=== PATIENT | male | born 1960 | race Caucasian/White ===

== ENCOUNTER → 2016-10-05 | Outpatient (CLI) | payer MEDICARE ==
--- NOTE | 2016-10-05 09:39 | XR ---
EXAMINATION TYPE: XR Hip Complete LT DATE OF EXAM ORDERED: 10/05/2016 9:03 AM HISTORY: M25.552 L hip pain. COMPARISON: None. FINDINGS: No fracture, dislocation or other acute osseous lesion is seen. IMPRESSION: NO ACUTE OSSEOUS LESION.
== END | disposition home or self-care (01) ==
LOC: RADXRMAIN 08:43
PROVIDERS: ATTEND Family Medicine
DX: M25.552 Pain in left hip (principal)
CPT/HCPCS: 73502

== ENCOUNTER → 2016-11-12 | Outpatient (CLI) | payer OTHER ==
--- NOTE | 2016-11-12 12:10 | MR ---
EXAMINATION TYPE: MR lumbar spine wo/w con DATE OF EXAM: 11/12/2016 COMPARISON: NONE Contrast: 20 mL MultiHance HISTORY: low back pain TECHNIQUE: T1 and T2 axial and sagittal, postcontrast T1 axial and sagittal images of the lumbar spi ne are submitted. Motion artifact does limit portions of the exam. FINDINGS: There is no abnormal signal seen within the visualized spinal cord or paraspinal soft tissu es. At L1-2 there is hypertrophy of the facets with circumferential disc bulging. Severe bilateral areli inal encroachment with greater disc bulging laterally. Borderline canal stenosis. At L2-3 there is severe degenerative disc disease with discogenic marrow changes. Left paracentral di sc bulging or protrusion seen with mild effacement of thecal sac. Hypertrophic change of the facets a re noted and there is moderate to severe bilateral foraminal encroachment and borderline canal stenos is. At L3-4 there is moderate degenerative disc disease with severe facet hypertrophy. This results in mo derate to severe bilateral foraminal encroachment but no canal stenosis or focal herniation. At L4-5 there is severe degenerative disc disease and facet hypertrophy. Mild central disc bulging. N eural foramina demonstrate moderate encroachment on the right and mild on the left. At L5-S1 there is moderate degenerative disc disease with facet arthropathy and central disc bulging or small protrusion. Mild bilateral foraminal encroachment. IMPRESSION: 1. At L5-S1 there is a broad-based central disc bulging or small protrusion with mild effacement of t hecal sac and mild bilateral foraminal encroachment. 2. Multilevel moderate to severe degenerative disc disease. Disc bulging or protrusion L2-L3 resultin g in bilateral severe foraminal encroachment and borderline canal stenosis. 3. Hypertrophic changes and degenerative disc disease result in moderate to severe bilateral foramina l encroachment L3-L4. 4. Severe degenerative disc disease L4-5 with hypertrophic changes and central disc bulging with fora kun encroachment as discussed above. 5. Circumferential disc bulging greater laterally results in bilateral severe foraminal encroachment and borderline canal stenosis L1-L2. Nerve root impingement bilaterally greater on the left suspecte d.
== END | disposition home or self-care (01) ==
LOC: RADMRIMAIN 10:59
PROVIDERS: ATTEND Physician Assistant
DX: M51.27 Other intervertebral disc displacement, lumbosacral region (principal); M51.36 Other intervertebral disc degeneration, lumbar region
CPT/HCPCS: 72158; A9577

== ENCOUNTER → 2018-05-30 | Outpatient (CLI) | payer MEDICARE ==
--- NOTE | 2018-05-30 13:06 | XR ---
EXAMINATION TYPE: XR chest 2V DATE OF EXAM: 05/30/2018 COMPARISON: 01/02/2013 INDICATION: COPD TECHNIQUE: Frontal and lateral views of the chest are obtained. FINDINGS: The heart size is normal. The pulmonary vasculature is normal. The lungs are clear. Mild flattening the diaphragms may be present which can be compatible with the patient's history of asthma and COPD IMPRESSION: 1. No acute pulmonary process.
== END | disposition home or self-care (01) ==
LOC: RADXRMAIN 12:08
PROVIDERS: ATTEND Physician Assistant
DX: J44.9 Chronic obstructive pulmonary disease, unspecified (principal)
CPT/HCPCS: 71046

== ENCOUNTER → 2018-07-09 | Outpatient (CLI) | payer MEDICARE ==
[2018-07-09 14:15] LABS: Basophils % (A) 0 %; Eosinophils # (A) 0.2 k/uL (0-0.7); Eosinophils % (A) 2 %; HCT 46.7 % (39.0-53.0); HGB 14.9 gm/dL (13.0-17.5); Lymphocytes % (A) 15 %; MCHC 31.9 g/dL (31.0-37.0); MCV 97.4 fL (80.0-100.0); Mean Platelet Volume 7.5; Monocytes # (A) 0.5 k/uL (0-1.0); Monocytes % (A) 4 %; Neutrophils # (A) 10.6 k/uL (1.3-7.7); Neutrophils % (A) 78 %; Platelet Count 266 k/uL (150-450); RBC 4.79 m/uL (4.30-5.90); RDW 13.5 % (11.5-15.5); WBC 13.5 k/uL (3.8-10.6)
[2018-07-09 20:53] LABS: Dermato. farinae IgE 0.12 kU/L
[2018-07-09 20:54] LABS: Cockroach IgE <0.10 kU/L; Dog Dander IgE 0.55 kU/L
[2018-07-09 20:55] LABS: Alternaria alternata IgE 0.16 kU/L
[2018-07-09 20:56] LABS: Birch IgE <0.10 kU/L; Elm IgE <0.10 kU/L; Maple (Box Elder) IgE <0.10 kU/L; Oak IgE <0.10 kU/L
[2018-07-09 20:57] LABS: Ragweed,Common IgE <0.10 kU/L
[2018-07-09 20:58] LABS: Red Top (Bentgrass) IgE 3.67 kU/L
== END | disposition home or self-care (01) ==
LOC: LABWHC1 13:30
PROVIDERS: ATTEND Internal Medicine
DX: J44.9 Chronic obstructive pulmonary disease, unspecified (principal); J30.2 Other seasonal allergic rhinitis; M54.5 Low back pain; I10 Essential (primary) hypertension; J98.4 Other disorders of lung; E66.01 Morbid (severe) obesity due to excess calories
CPT/HCPCS: 36415; 82785; 85025; 86003

== ENCOUNTER 2019-08-13 11:13 | Inpatient (IN) | payer OTHER, MEDICARE ==
[2019-08-13] MEDS ORDERED: methylPREDNISolone SOD SUCCI 125 MG/2 ML VIAL IV STA (11:29)
[2019-08-13] MEDS ORDERED: IPRATROPIUM-ALBUTEROL 3 ML NEB INHALATION STA (11:29)
--- NOTE | 2019-08-13 11:32 | ED ---
General Adult HPI - General Chief complaint: Shortness of Breath Stated complaint: JOSEPHINE Time Seen by Provider: 08/13/19 11:23 Source: patient, family, RN notes reviewed Mode of arrival: ambulatory Limitations: no limitations - History of Present Illness Initial comments: Patient is a pleasant 58-year-old male presenting to the emergency Department with complaints of cough and difficulty in breathing. Onset of symptoms was several weeks ago. Patient went to urgent care on July 29 and was diagnosed with pneumonia. Patient was started on clindamycin and just finished this 4 days ago. Symptoms have started to worsen again. Patient complains of some cough however more difficulty in breathing and wheezing. Patient does have known history of asthma. No leg pain or leg swelling. - Related Data Allergies Allergy/AdvReac Type Severity Reaction Status Date / Time Penicillins Allergy Rash/Hives Verified 08/13/19 11:21 Review of Systems ROS Statement: Those systems with pertinent positive or pertinent negative responses have been documented in the HPI. ROS Other: All systems not noted in ROS Statement are negative. Constitutional: Denies: fever Eyes: Denies: eye pain ENT: Denies: ear pain Respiratory: Reports: cough, dyspnea Cardiovascular: Denies: chest pain Endocrine: Reports: fatigue Gastrointestinal: Denies: abdominal pain Genitourinary: Denies: dysuria Musculoskeletal: Denies: back pain Skin: Denies: rash Neurological: Denies: weakness Past Medical History Past Medical History: Asthma, Hyperlipidemia, Hypertension History of Any Multi-Drug Resistant Organisms: None Reported Additional Past Surgical History / Comment(s): septum surgery, nission procedure on stomach, nerve ablation on back. Past Psychological History: No Psychological Hx Reported Smoking Status: Never smoker Past Alcohol Use History: None Reported Past Drug Use History: None Reported General Exam Limitations: no limitations General appearance: alert, obese Head exam: Present: normocephalic Eye exam: Present: normal appearance, PERRL ENT exam: Present: normal oropharynx Neck exam: Present: normal inspection Respiratory exam: Present: respiratory distress (Mild respiratory distress), wheezes, decreased breath sounds Cardiovascular Exam: Present: tachycardia GI/Abdominal exam: Present: soft. Absent: tenderness Extremities exam: Present: normal inspection. Absent: pedal edema, calf tenderness Neurological exam: Present: alert Psychiatric exam: Present: normal affect, normal mood Skin exam: Present: normal color Course Vital Signs 08/13/19 08/13/1908/12/20 11:17 12:08 12:18 Temperature 97.9 F Pulse Rate 113 H 106 H 107 H Respiratory 20 Rate Blood Pressure 182/83 O2 Sat by Pulse 97 Oximetry 08/13/19 08/13/19 12:30 13:00 Temperature Pulse Rate 105 H 103 H Respiratory 16 19 Rate Blood Pressure 175/110 146/103 O2 Sat by Pulse 97 95 Oximetry EKG Findings - EKG Comments: EKG Findings:: Sinus tachycardia 104. MI 142. QRS 90. QT 344. QTC 452. Normal axis. Normal QRS. No acute ST change. Medical Decision Making - Medical Decision Making Patient reevaluated and feels much better. Patient is not in respiratory distress. Lung sounds with only mild improvement. Patient and family updated on results and plan. Case discussed in detail with Dr. Wall and x-ray was reviewed with him as well. He will admit covering for Dr. Gutierrez. - Radiology Data Radiology results: image reviewed (Chest x-ray shows subtle right lower lobe infiltrate that could represent atelectasis or pneumonia.) Disposition Clinical Impression: Asthma with acute exacerbation, Pneumonia Disposition: ADMITTED IP TO THIS HOSP Is patient prescribed a controlled substance at d/c from ED?: No Referrals: Patrick Gutierrez DO [Primary Care Provider] - 1-2 days Decision Time: 14:09
--- NOTE | 2019-08-13 12:34 | XR ---
EXAMINATION TYPE: XR chest 2V DATE OF EXAM: 08/13/2019 COMPARISON: 05/22/2018 HISTORY: Pneumonia per patient history. TECHNIQUE: Frontal and lateral views of the chest are obtained. FINDINGS: Subtle small opacity of the right lower lobe appears new from the prior. Remainder the osmar gs are well aerated. No pleural effusion or pneumothorax. Cardia mediastinal silhouette is again enla rged as seen on the prior. Moderate degenerative change of the thoracic spine. IMPRESSION: Subtle right basilar opacity may represent atelectasis or pneumonia in the appropriate c linical setting.
[2019-08-13 13:59] LABS: Basophils % (A) 0 %; Eosinophils # (A) 0.5 k/uL (0-0.7); Eosinophils % (A) 3 %; HCT 46.4 % (39.0-53.0); Lymphocytes # (A) 1.2 k/uL (1.0-4.8); Lymphocytes % (A) 8 %; MCH 30.7 pg (25.0-35.0); MCHC 32.2 g/dL (31.0-37.0); MCV 95.4 fL (80.0-100.0); Mean Platelet Volume 9.1; Monocytes # (A) 0.6 k/uL (0-1.0); Monocytes % (A) 4 %; Neutrophils # (A) 13.2 k/uL (1.3-7.7); Neutrophils % (A) 84 %; Platelet Count 282 k/uL (150-450); RBC 4.87 m/uL (4.30-5.90); RDW 13.9 % (11.5-15.5); WBC 15.7 k/uL (3.8-10.6)
[2019-08-13] MEDS ORDERED: IPRATROPIUM-ALBUTEROL 3 ML NEB INHALATION PRN (14:09)
[2019-08-13] MEDS ORDERED: AZITHROMYCIN 500 MG in SODIUM CHLORIDE 0.9% 250 ML IVPB STA (14:09)
[2019-08-13] MEDS ORDERED: PNEUMONIA PROTOCOL UTILIZED 1 EACH MISC PO PRN (14:09)
[2019-08-13 14:14] LABS: INR 0.9 (<1.2); Prothrombin Time 9.4 sec (9.0-12.0)
[2019-08-13 14:16] LABS: ALT 61 U/L (4-49); AST 55 U/L (17-59); African American GFR (CKD) >90 (>60 ml/min/1.73 sqM); Albumin 4.4 g/dL (3.5-5.0); Alkaline Phosphatase 82 U/L (38-126); Anion Gap 10 mmol/L; Blood Urea Nitrogen 24 mg/dL (9-20); Calcium 9.9 mg/dL (8.4-10.2); Carbon Dioxide 25 mmol/L (22-30); Chloride 103 mmol/L (98-107); Glucose 157 mg/dL (74-99); Non-African American GFR(CKD) 82 (>60 ml/min/1.73 sqM); Sodium 138 mmol/L (137-145); Total Bilirubin 0.6 mg/dL (0.2-1.3); Total Protein 7.2 g/dL (6.3-8.2)
[2019-08-13 14:30] LABS: Potassium 4.7 mmol/L (3.5-5.1)
[2019-08-13 14:35] LABS: Partial Thromboplastin Time 21.5 sec (22.0-30.0)
[2019-08-13] MEDS: SODIUM CHLORIDE 0.9% 1,000 ML IV SCH (14:47)
[2019-08-13] MEDS ORDERED: SODIUM CHLORIDE 0.9% 1,000 ML IV STA ×2 (14:57)
[2019-08-13] MEDS ORDERED: SODIUM CHLORIDE 0.9% 600 ML IV STA (14:57)
[2019-08-13] MEDS ORDERED: IPRATROPIUM-ALBUTEROL 3 ML NEB INHALATION SCH (16:00)
[2019-08-13] MEDS ORDERED: CYCLOBENZAPRINE 10 MG TAB PO PRN (16:03)
--- NOTE | 2019-08-13 16:18 | P.HPIM ---
History of Present Illness H&P Date: 08/13/19 Chief Complaint: Wheezing cough History of presenting complaint: This is a pleasant 58-year-old patient of Dr. Sabrina Gutierrez. Chronic stable medical conditions include BPH,, hypertension,. also follows with general office worker Dr. Tirado. Patient on July 29 had an attack of asthma with [facility]. He was told he also possible pneumonia was given antibiotics and 4 days ago he finished the course. Subsequently patient said having more wheezing dry cough no congestion has had no fever or chills appetite is fair. Presented to the ER. No dizziness no lightheadedness. Review of systems: GEN.: Tired EYES: None HEENT: None NECK: None RESPIRATORY: As above CARDIOVASCULAR: None GASTROINTESTINAL: None GENITOURINARY: None MUSCULOSKELETAL: None LYMPHATICS: None HEMATOLOGICAL: None PSYCHIATRY: None NEUROLOGICAL: None Past medical history to include: BPH,, hypertension, COPD, hyperlipidemia Social history: Patient smoked a pack a day for about 20 years stopped about 25 years ago. As . 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 EYES: Pupils equal. Conjunctiva normal. HEENT: External appearance of nose and ears normal, oral cavity grossly normal. NECK: JVD unable to assess; masses not palpable. HEART: First and second heart sounds are normal; no edema. LUNGS: Respiratory rate increased, diminished breath sounds prolonged expiration and wheezing. ABDOMEN: Soft, nontender, liver spleen not palpable, no masses palpable. PSYCH: [Alert and oriented x3; mood and affect slightly anxious. NEUROLOGICAL: Cranial nerves grossly intact; no facial asymmetry, power and sensation grossly intact. LYMPHATICS: No lymph nodes palpable in the axilla and neck INVESTIGATIONS, reviewed in the clinical context: White count 13.7 hemoglobin 15 platelets 282 potassium 4.7 creatinine 1.0 lactic acid 2.6 Chest x-ray film personally reviewed by me-questionable infiltrate EKG tracing personally reviewed by me-normal sinus rhythm Assessment: -Acute COPD exacerbation, having failed outpatient treatment patient just finished a course of antibiotics and steroids in an ex-smoker -Possible viral pneumonitis cannot rule out bacterial infection. Patient does h ave a dry cough. -Morbid obesity BMI 42.1 -BPH -Chronic lower back pain with radiculopathy Plan: Care was discussed with the patient and his ex- at the bedside. Patient be started on nebulized bronchodilators, inhaled and IV steroids. Also add ceftriaxone. Home medications are to be continued. Add Lovenox for DVT prophylaxis. Accu-Cheks will be followed. Care was discussed with the patient. Questions were answered. Past Medical History Past Medical History: Asthma, Hyperlipidemia, Hypertension History of Any Multi-Drug Resistant Organisms: None Reported Additional Past Surgical History / Comment(s): septum surgery, nission procedure on stomach, nerve ablation on back. Past Psychological History: No Psychological Hx Reported Smoking Status: Never smoker Past Alcohol Use History: None Reported Past Drug Use History: None Reported Medications and Allergies Home Medications Medication Instructions Recorded Confirmed Type Albuterol Nebulized [Ventolin 2.5 mg INHALATION RT-Q4H PRN 08/13/19 08/13/19 History Nebulized] Albuterol Sulfate [Ventolin HFA] 2 puff INHALATION RT-Q6H 08/13/19 08/13/19 History Cyclobenzaprine [Flexeril] 10 mg PO BID PRN 08/13/19 08/13/19 History Gabapentin [Neurontin] 300 mg PO TID 08/13/19 08/13/19 History Hydrochlorothiazide [Hydrodiuril] 25 mg PO DAILY 08/13/19 08/13/19 History Ipratropium Nebulized [Atrovent 0.5 mg INHALATION RT-Q4H PRN 08/13/19 08/13/19 History Nebulized 0.2 MG/ML] Losartan Potassium 100 mg PO DAILY 08/13/19 08/13/19 History Metoprolol Succinate (ER) [Toprol 25 mg PO HS 08/13/19 08/13/19 History Xl] Mometasone Furoate [Nasonex Nasal 2 spray EA NOSTRIL DAILY 08/13/19 08/13/19 History [place]] Montelukast [Singulair] 10 mg PO HS 08/13/19 08/13/19 History Tamsulosin [Flomax] 0.4 mg PO HS 08/13/19 08/13/19 History Theophylline 24 Hour [Raghavendra-24] 400 mg PO DAILY 08/13/19 08/13/19 History Xolair Unknown Dose 1 dose SQ Q14D 08/13/19 08/13/19 History predniSONE 5 mg PO MOWEFR 08/13/19 08/13/19 History predniSONE 10 mg PO SUTUTHSA 08/13/19 08/13/19 History Allergies Allergy/AdvReac Type Severity Reaction Status Date / Time Penicillins Allergy Rash/Hives Verified 08/13/19 14:01 Physical Exam Vitals: Vital Signs Temp Pulse Pulse Resp BP BP Pulse Ox 08/13/19 15:00 97.4 F L 115 H 18 146/102 92 L 08/13/19 14:51 98.9 F 102 H 18 150/85 98 08/13/19 13:00 103 H 19 146/103 95 08/13/19 12:30 105 H 16 175/110 97 08/13/19 12:18 107 H 08/13/19 12:08 106 H 08/13/19 11:17 97.9 F 113 H 20 182/83 97 Intake and Output 08/13/19 08/13/19 08/13/19 06:59 14:59 22:59 Other: Weight 148.778 kg Results CBC & Chem 7: 08/13/19 12:10 08/13/19 12:10 Labs: Abnormal Lab Results - Last 24 Hours (Table) 08/13/19 08/13/19 08/13/19 Range/Units 12:10 12:10 12:10 WBC 15.7 H (3.8-10.6) k/uL Neutrophils # 13.2 H (1.3-7.7) k/uL APTT 21.5 L (22.0-30.0) sec BUN 24 H (9-20) mg/dL Glucose 157 H (74-99) mg/dL Plasma Lactic Acid Momo (0.7-2.0) mmol/L ALT 61 H (4-49) U/L 08/13/19 Range/Units 14:05 WBC (3.8-10.6) k/uL Neutrophils # (1.3-7.7) k/uL APTT (22.0-30.0) sec BUN (9-20) mg/dL Glucose (74-99) mg/dL Plasma Lactic Acid Momo 2.6 H* (0.7-2.0) mmol/L ALT (4-49) U/L
[2019-08-13 17:05] LABS: Glucose,Whole Blood 220 mg/dL (75-99)
[2019-08-13] MEDS: IPRATROPIUM-ALBUTEROL 3 ML NEB INHALATION SCH ×3 (17:10→20:29)
[2019-08-13] MEDS: ENOXAPARIN 40 MG/0.4 ML SYRINGE SQ SCH (17:30)
[2019-08-13] MEDS: INSULIN ASPART (NovoLOG) 100 UNIT/ML VIAL SQ SCH ×2 (17:31→21:39)
[2019-08-13] MEDS: methylPREDNISolone SOD SUCCI 40 MG/ML 1 ML VIAL IV SCH (17:33)
[2019-08-13] MEDS ORDERED: methylPREDNISolone SOD SUCCI 125 MG/2 ML VIAL IV SCH (18:00)
[2019-08-13 20:22] LABS: Glucose,Whole Blood 270 mg/dL (75-99)
[2019-08-13] MEDS: BUDESONIDE 1 MG/2 ML NEBU INHALATION SCH (20:29)
[2019-08-13] MEDS: FORMOTEROL FUMARATE 20 MCG/2 ML NEBU INHALATION SCH (20:29)
[2019-08-13] MEDS: MONTELUKAST 10 MG TAB PO SCH (21:11)
[2019-08-13] MEDS: METOPROLOL SUCCINATE (ER) 25 MG TAB.ER.24H PO SCH (21:11)
[2019-08-13] MEDS: GABAPENTIN 300 MG CAP PO SCH (21:11)
[2019-08-13] MEDS: TAMSULOSIN 0.4 MG CAP.ER.24H PO SCH (21:11)
[2019-08-13 21:38] LABS: Glucose,Whole Blood 213 mg/dL (75-99)
[2019-08-14] MEDS: IPRATROPIUM-ALBUTEROL 3 ML NEB INHALATION SCH ×6 (00:16→20:39)
[2019-08-14] MEDS: methylPREDNISolone SOD SUCCI 40 MG/ML 1 ML VIAL IV SCH ×3 (00:19→18:15)
[2019-08-14] MEDS: SODIUM CHLORIDE 0.9% 1,000 ML IV SCH (00:20)
[2019-08-14] MEDS: BUDESONIDE 1 MG/2 ML NEBU INHALATION SCH ×2 (07:03→20:39)
[2019-08-14] MEDS: FORMOTEROL FUMARATE 20 MCG/2 ML NEBU INHALATION SCH ×2 (07:03→20:39)
[2019-08-14 07:29] LABS: Glucose,Whole Blood 151 mg/dL (75-99)
[2019-08-14] MEDS: INSULIN ASPART (NovoLOG) 100 UNIT/ML VIAL SQ SCH ×4 (07:47→21:15)
[2019-08-14] MEDS: ENOXAPARIN 40 MG/0.4 ML SYRINGE SQ SCH (07:48)
[2019-08-14] MEDS: AZITHROMYCIN 500 MG TAB PO SCH (07:48)
[2019-08-14] MEDS: GABAPENTIN 300 MG CAP PO SCH ×3 (07:48→21:15)
[2019-08-14] MEDS: THEOPHYLLINE 24 HOUR 200 MG CAP.ER.24H PO SCH (07:49)
[2019-08-14] MEDS: LOSARTAN 50 MG TAB PO SCH (07:49)
--- NOTE | 2019-08-14 07:49 | XR ---
EXAMINATION TYPE: XR chest 2V DATE OF EXAM: 08/14/2019 COMPARISON: 08/13/2019 HISTORY: Pneumonia. Follow-up exam. TECHNIQUE: Frontal and lateral views of the chest are obtained. FINDINGS: There is no focal air space opacity, pleural effusion, or pneumothorax seen. The cardiac silhouette size is again enlarged. The osseous structures are intact. Moderate multilevel degenerat mike change of the spine. IMPRESSION: Resolved right basilar opacity. No focal consolidation.
[2019-08-14 11:43] LABS: Glucose,Whole Blood 216 mg/dL (75-99)
--- NOTE | 2019-08-14 15:04 | P.CNPUL ---
History of Present Illness Consult date: 08/14/19 Requesting physician: Storm Wall Reason for consult: dyspnea, asthma Chief complaint: Shortness of breath, cough, congestion History of present illness: This is a very pleasant 58-year-old gentleman who follows with Dr. Gutierrez as his primary care provider. He has a history of chronic back pain, hypertension, gastroesophageal reflux disease, morbid obesity. He also has a history of moder ate persistent chronic bronchial asthma and follows with Dr. Alvarez in our office for the same. He is steroid dependent currently alternating 5 mg with 10 mg every other day. He is on Breo, Ventolin, Singulair, theophylline and DuoNeb inhalations. He is also receiving Xolair. His FEV1 value is 46% of predicted. The patient went to [facility] on 07/29/2019 with complaints of increasing shortness of breath, cough congestion chest tightness and wheezing. He was treated with clindamycin for 10 days which he did improve somewhat however shortly after that he started developing worsening symptoms again. He presented to [facility] yesterday and was told he does have a pneumonia but needed to go to the emergency room. Chest x-ray revealed a subtle right basilar opacity representing atelectasis versus pneumonia. Sputum culture is pending. White count 15.7. Hemoglobin 15.0. Sodium 138. Potassium 4.7. Creatinine 1.00. He's been initiated on DuoNeb inhalations, ceftriaxone and azithromycin, Pulmicort and Perforomist inhalations, IV Solu-Medrol. He is seen today on the regular medical floor. He is currently awake and alert in no acute distress. He states he is breathing easier today as compared to yesterday. He is maintaining O2 saturations in the mid 90s on 3 L/m per nasal cannula. He is afebrile. Slightly tachycardic. Today's chest x-ray reveals resolved right basilar opacity. No focal consolidation. Review of Systems REVIEW OF SYSTEMS: CONSTITUTIONAL: Denies any recent significant weight loss or weight gain. EYES: Denies change in vision. EARS, NOSE, MOUTH, THROAT: Denies headaches, denies sore throat. CARDIOVASCULAR: Denies chest pain, palpitations or syncopal episodes. RESPIRATORY: Positive for shortness of breath, cough, congestion no hemoptysis. GASTROINTESTINAL: Denies change in appetite, denies abdominal pain GENITOURINARY: Denies hematuria, denies infections. MUSKULOSKELETAL: Denies pain, denies swelling. INTEGUMENTARY: Denies rash, denies eczema. NEUROLOGICAL: Denies recent memory loss, no recent seizure activity. PSYCHIATRIC: Denies anxiety, denies depression. HEMATOLOGIC/LYMPHATIC: Denies anemia, denies enlarged lymph nodes. Past Medical History Past Medical History: Asthma, Hyperlipidemia, Hypertension History of Any Multi-Drug Resistant Organisms: None Reported Additional Past Surgical History / Comment(s): septum surgery, nission procedure on stomach, nerve ablation on back. Past Psychological History: No Psychological Hx Reported Smoking Status: Never smoker Past Alcohol Use History: None Reported Past Drug Use History: None Reported - Past Family History Father Family Medical History: Myocardial Infarction ([place]) Mother Family Medical History: Cancer Medications and Allergies Home Medications Medication Instructions Recorded Confirmed Type Albuterol Nebulized [Ventolin 2.5 mg INHALATION RT-Q4H PRN 08/13/19 08/13/19 History Nebulized] Albuterol Sulfate [Ventolin HFA] 2 puff INHALATION RT-Q6H 08/13/19 08/13/19 History Cyclobenzaprine [Flexeril] 10 mg PO BID PRN 08/13/19 08/13/19 History Gabapentin [Neurontin] 300 mg PO TID 08/13/19 08/13/19 History Hydrochlorothiazide [Hydrodiuril] 25 mg PO DAILY 08/13/19 08/13/19 History Ipratropium Nebulized [Atrovent 0.5 mg INHALATION RT-Q4H PRN 08/13/19 08/13/19 History Nebulized 0.2 MG/ML] Losartan Potassium 100 mg PO DAILY 08/13/19 08/13/19 History Metoprolol Succinate (ER) [Toprol 25 mg PO HS 08/13/19 08/13/19 History Xl] Mometasone Furoate [Nasonex Nasal 2 spray EA NOSTRIL DAILY 08/13/19 08/13/19 History [place]] Montelukast [Singulair] 10 mg PO HS 08/13/19 08/13/19 History Tamsulosin [Flomax] 0.4 mg PO HS 08/13/19 08/13/19 History Theophylline 24 Hour [Raghavendra-24] 400 mg PO DAILY 08/13/19 08/13/19 History Xolair Unknown Dose 1 dose SQ Q14D 08/13/19 08/13/19 History predniSONE 5 mg PO MOWEFR 08/13/19 08/13/19 History predniSONE 10 mg PO SUTUTHSA 08/13/19 08/13/19 History Allergies Allergy/AdvReac Type Severity Reaction Status Date / Time Penicillins Allergy Rash/Hives Verified 08/13/19 14:01 Physical Exam Vitals: Vital Signs Temp Pulse Pulse Resp BP Pulse Ox 08/14/19 11:00 96 08/14/19 10:47 92 08/14/19 08:05 101 H 17 08/14/19 07:29 104 H 08/14/19 07:19 100 08/14/19 07:18 100 08/14/19 07:03 100 08/14/19 07:00 98.3 F 101 H 17 181/111 95 08/14/19 03:57 110 H 08/14/19 03:52 16 08/14/19 03:47 108 H 08/14/19 01:28 98.2 F 134 H 16 159/95 94 L 08/14/19 00:18 100 08/14/19 00:05 100 08/14/19 00:00 16 08/13/19 20:52 100 08/13/19 20:50 98.0 F 107 H 18 152/95 93 L 08/13/19 20:43 97.7 F 111 H 16 157/103 95 08/13/19 20:41 100 08/13/19 20:30 100 08/13/19 19:03 111 H 18 08/13/19 17:20 100 08/13/19 17:13 100 08/13/19 15:00 97.4 F L 115 H 18 146/102 92 L Intake and Output 08/13/19 08/14/19 08/14/19 22:59 06:59 14:59 Intake Total 360 1200 1300 Balance 360 1200 1300 Intake: Intake, IV Titration 1200 850 Amount Sodium Chloride 0.9% 1, 1200 800 000 ml @ 100 mls/hr IV . Q10H NELI Rx#:[id number] Sodium Chloride 0.9% 1, 0 000 ml @ 999 mls/hr IV . Q1H1M STA Rx#:[id number] Sodium Chloride 0.9% 1, 0 000 ml @ 999 mls/hr IV . Q1H1M STA Rx#:[id number] Sodium Chloride 0.9% 600 0 ml @ 999 mls/hr IV .Q37M STA Rx#:[id number] cefTRIAXone 1 gm In 50 Sodium Chloride 0.9% 50 ml @ 100 mls/hr IVPB ONCE STA Rx#:[id number] Oral 360 450 Other: Voiding Method Toilet Toilet # Voids 1 2 3 GENERAL EXAM: Very pleasant morbidly obese 58-year-old gentleman. Alert, comfortable in no apparent distress. HEAD: Normocephalic. EYES: Normal reaction of pupils, equal size. NOSE: Clear with pink turbinates. THROAT: No erythema or exudates. NECK: No masses, no JVD. CHEST: No chest wall deformity. LUNGS: Equal air entry with no crackles, wheeze, rhonchi or dullness. CVS: S1 and S2 normal with no audible murmur, regular rhythm. ABDOMEN: No hepatosplenomegaly, normal bowel sounds, no guarding or rigidity. SPINE: No scoliosis or deformity SKIN: No rashes CENTRAL NERVOUS SYSTEM: No focal deficits, tone is normal in all 4 extremities. EXTREMITIES: There is no peripheral edema. No clubbing, no cyanosis. Peripheral pulses are intact. Results - Laboratory Findings CBC and BMP: 08/13/19 12:10 08/13/19 12:10 PT/INR, D-dimer PT 9.4 sec (9.0-12.0) 08/13/19 12:10 INR 0.9 (<1.2) 08/13/19 12:10 Abnormal lab findings: Abnormal Labs 08/13/19 08/13/19 08/13/19 12:10 12:10 12:10 WBC 15.7 H Neutrophils # 13.2 H APTT 21.5 L BUN 24 H Glucose 157 H POC Glucose (mg/dL) Plasma Lactic Acid Momo ALT 61 H 08/13/19 08/13/19 08/13/19 14:05 17:03 18:02 WBC Neutrophils # APTT BUN Glucose POC Glucose (mg/dL) 220 H Plasma Lactic Acid Momo 2.6 H* 3.1 H* ALT 08/13/19 08/13/19 08/14/19 20:21 21:37 07:26 WBC Neutrophils # APTT BUN Glucose POC Glucose (mg/dL) 270 H 213 H 151 H Plasma Lactic Acid Momo ALT 08/14/19 11:41 WBC Neutrophils # APTT BUN Glucose POC Glucose (mg/dL) 216 H Plasma Lactic Acid Momo ALT - Diagnostic Findings Chest x-ray: image reviewed Assessment and Plan Assessment: 1 Acute community acquired pneumonia, failed outpatient treatment 2 Acute exacerbation of moderate persistent chronic bronchial asthma secondary to above 3 Morbid obesity 4 Chronic back pain 5 Hypertension 6 Gastroesophageal reflux disease Plan: The patient was seen and evaluated by Dr. Pat. Chest x-ray and labs reviewed. We'll continue with the current treatment plan including bronchodil ators, IV Solu-Medrol, antibiotics in the form of ceftriaxone and azithromycin. Probable discharge in the a.m. We'll continue to follow. I, the cosigning physician, performed a history & physical examination of the patient. Lungs sounds with bilateral end expiratory wheeze, few scattered rhonchi Maintaining good O2 saturations in the 90s on 3 L/m per nasal cannula. I discussed the assessment and plan of care with my nurse practitioner, Mita Ramey. I attest to the above consultation as dictated by her. Time with Patient: Greater than 30
[2019-08-14 17:02] LABS: Glucose,Whole Blood 148 mg/dL (75-99)
--- NOTE | 2019-08-14 17:25 | P.PN ---
Progress Note - Text Progress Note Date: 08/14/19 Chief Complaint: Wheezing cough History of presenting complaint: This is a pleasant 58-year-old patient of Dr. Sabrina Gutierrez. Chronic stable medical conditions include BPH,, hypertension,. also follows with elastic attacher coverstitch Dr. Tirado. Patient on July 29 had an attack of asthma with ALLERGIC care. He was told he also possible pneumonia was given antibiotics and 4 days ago he finished the course. Subsequently patient said having more wheezing dry cough no congestion has had no fever or chills appetite is fair. Presented to the ER. No dizziness no lightheadedness. Admitted with acute COPD exacerbation and pneumonia. Started on bronchodilators, IV ceftriaxone, IV Solu-Medrol. Today-feeling a bit better. Less wheezing. Less cough. Did tolerate her diet. Review of systems: Was done for constitutional, cardiovascular, GI, pulmonary. relevant finding as above Active Medications Albuterol/Ipratropium (Duoneb 0.5 Mg-3 Mg/3 Ml Soln) 3 ml INHALATION RT-Q4H PRN PRN Reason: Shortness Of Breath Or Wheezing Albuterol/Ipratropium (Duoneb 0.5 Mg-3 Mg/3 Ml Soln) 3 ml INHALATION RT-Q4H [facility] Last Admin: 08/14/19 16:37 Dose: 3 ml Documented by: Azithromycin (Zithromax) 500 mg PO DAILY [facility] Last Admin: 08/14/19 07:48 Dose: 500 mg Documented by: Budesonide (Pulmicort) 1 mg INHALATION RT-BID [facility] Last Admin: 08/14/19 07:03 Dose: 1 mg Documented by: Cyclobenzaprine HCl (Flexeril) 10 mg PO BID PRN PRN Reason: Muscle Spasm Enoxaparin Sodium (Lovenox) 40 mg SQ DAILY [facility] Last Admin: 08/14/19 07:48 Dose: 40 mg Documented by: Formoterol Fumarate (Perforomist) 20 mcg INHALATION RT-BID [facility] Last Admin: 08/14/19 07:03 Dose: 20 mcg Documented by: Gabapentin (Neurontin) 300 mg PO TID [facility] Last Admin: 08/14/19 07:48 Dose: 300 mg Documented by: Sodium Chloride (Saline 0.9%) 1,000 mls @ 100 mls/hr IV .Q10H [facility] Last Admin: 08/14/19 00:20 Dose: 100 mls/hr Documented by: Ceftriaxone Sodium 1 gm/ (Sodium Chloride) 50 mls @ 100 mls/hr IVPB Q24HR [facility] Stop: 08/17/19 09:01 Last Admin: 08/14/19 07:48 Dose: 100 mls/hr Documented by: Insulin Aspart (Novolog) 0 unit SQ ACHS [facility]; Protocol Last Admin: 08/14/19 12:02 Dose: 7 unit Documented by: Losartan Potassium (Cozaar) 100 mg PO DAILY [facility] Last Admin: 08/14/19 07:49 Dose: 100 mg Documented by: Methylprednisolone Sodium Succinate (Solu-Medrol) 40 mg IV Q8HR [facility] Last Admin: 08/14/19 07:48 Dose: 40 mg Documented by: Metoprolol Succinate (Toprol Xl) 25 mg PO [facility] Last Admin: 08/13/19 21:11 Dose: 25 mg Documented by: Miscellaneous Information (Pneumonia Protocol Utilized) 1 each PO ONCE PRN PRN Reason: Per Protocol Montelukast Sodium (Singulair) 10 mg PO [facility] Last Admin: 08/13/19 21:11 Dose: 10 mg Documented by: Tamsulosin HCl (Flomax) 0.4 mg PO [facility] Last Admin: 08/13/19 21:11 Dose: 0.4 mg Documented by: Theophylline (Raghavendra-24) 400 mg PO DAILY [facility] Last Admin: 08/14/19 07:49 Dose: 400 mg Documented by: Physical examination: VITAL SIGNS: 98.3, 101, 17, blood pressure 180 /111, 95% on his cannula GENERAL: BMI 42.1, sitting up, less short of breath EYES: Pupils equal. Conjunctiva normal. HEENT: External appearance of nose and ears normal, oral cavity grossly normal. NECK: JVD unable to assess; masses not palpable. HEART: First and second heart sounds are normal; no edema. LUNGS: Respiratory rate increased, diminished breath sounds prolonged expiration and wheezing. ABDOMEN: Soft, nontender, liver spleen not palpable, no masses palpable. PSYCH: [Alert and oriented x3; mood and affect slightly anxious. INVESTIGATIONS, reviewed in the clinical context: White count 13.7 hemoglobin 15 platelets 282 potassium 4.7 creatinine 1.0 lactic acid 2.6 Chest x-ray film personally reviewed by me-questionable infiltrate EKG tracing personally reviewed by me-normal sinus rhythm Assessment: -Acute COPD exacerbation, having failed outpatient treatment patient just finished a course of antibiotics and steroids in an ex-smoker, POA -Pneumonia, suspect gram-negative organism, POA -Morbid obesity BMI 42.1 -BPH -Chronic lower back pain with radiculopathy -Essential hypertension Plan: Continue with bronchodilator steroids, antibiotics. We'll start the patient on lisinopril hydrochlorothiazide.
[2019-08-14 21:06] LABS: Glucose,Whole Blood 173 mg/dL (75-99)
[2019-08-14] MEDS: METOPROLOL SUCCINATE (ER) 25 MG TAB.ER.24H PO SCH (21:14)
[2019-08-14] MEDS: TAMSULOSIN 0.4 MG CAP.ER.24H PO SCH (21:14)
[2019-08-14] MEDS: MONTELUKAST 10 MG TAB PO SCH (21:15)
[2019-08-14] MEDS: LISINOPRIL-HCTZ 10-12.5 MG 1 EACH TAB PO SCH (21:22)
[2019-08-15] MEDS: methylPREDNISolone SOD SUCCI 40 MG/ML 1 ML VIAL IV SCH ×4 (00:04→23:08)
[2019-08-15] MEDS: IPRATROPIUM-ALBUTEROL 3 ML NEB INHALATION SCH ×7 (01:08→23:38)
[2019-08-15 06:53] LABS: Glucose,Whole Blood 183 mg/dL (75-99)
[2019-08-15 07:40] LABS: HCT 43.6 % (39.0-53.0); HGB 13.4 gm/dL (13.0-17.5); MCH 29.8 pg (25.0-35.0); MCHC 30.7 g/dL (31.0-37.0); MCV 97.1 fL (80.0-100.0); Mean Platelet Volume 9.8; Platelet Count 244 k/uL (150-450); RBC 4.48 m/uL (4.30-5.90); RDW 13.9 % (11.5-15.5); WBC 22.9 k/uL (3.8-10.6)
[2019-08-15] MEDS: SODIUM CHLORIDE 0.9% 1,000 ML IV SCH ×3 (07:53→16:06)
[2019-08-15 07:58] LABS: African American GFR (CKD) >90 (>60 ml/min/1.73 sqM); Anion Gap 9 mmol/L; Blood Urea Nitrogen 29 mg/dL (9-20); Calcium 9.3 mg/dL (8.4-10.2); Carbon Dioxide 28 mmol/L (22-30); Chloride 103 mmol/L (98-107); Glucose 193 mg/dL (74-99); Non-African American GFR(CKD) 86 (>60 ml/min/1.73 sqM); Potassium 4.5 mmol/L (3.5-5.1); Sodium 140 mmol/L (137-145)
[2019-08-15] MEDS: BUDESONIDE 1 MG/2 ML NEBU INHALATION SCH ×2 (08:23→21:08)
[2019-08-15] MEDS: FORMOTEROL FUMARATE 20 MCG/2 ML NEBU INHALATION SCH ×2 (08:23→21:08)
[2019-08-15] MEDS: INSULIN ASPART (NovoLOG) 100 UNIT/ML VIAL SQ SCH ×4 (08:27→20:35)
[2019-08-15] MEDS: ENOXAPARIN 40 MG/0.4 ML SYRINGE SQ SCH (08:27)
[2019-08-15] MEDS: LISINOPRIL-HCTZ 10-12.5 MG 1 EACH TAB PO SCH ×2 (08:28→20:34)
[2019-08-15] MEDS: LOSARTAN 50 MG TAB PO SCH (08:28)
[2019-08-15] MEDS: GABAPENTIN 300 MG CAP PO SCH ×3 (08:28→20:34)
[2019-08-15] MEDS: THEOPHYLLINE 24 HOUR 200 MG CAP.ER.24H PO SCH (08:28)
[2019-08-15] MEDS: AZITHROMYCIN 500 MG TAB PO SCH (08:28)
[2019-08-15 11:33] LABS: Glucose,Whole Blood 222 mg/dL (75-99)
--- NOTE | 2019-08-15 13:53 | P.PN ---
Subjective Progress Note Date: 08/15/19 Principal diagnosis: Acute community-acquired pneumonia This is a very pleasant 58-year-old gentleman who follows with Dr. Gutierrez as his primary care provider. He has a history of chronic back pain, hypertension, gastroesophageal reflux disease, morbid obesity. He also has a history of moderate persistent chronic bronchial asthma and follows with Dr. Alvarez in our office for the same. He is steroid dependent currently alternating 5 mg with 10 mg every other day. He is on Breo, Ventolin, Singulair, theophylline and DuoNeb inhalations. He is also receiving Xolair. His FEV1 value is 46% of predicted. [facility] with complaints of increasing shortness of breath, cough congestion chest tightness and wheezing. He was treated with clindamycin for 10 days which he did improve somewhat however shortly after that he started developing worsening symptoms again. [facility] presented [facility] yesterday and was told he does have a pneumonia but needed to go to the emergency room. Chest x-ray revealed a subtle right basilar opacity representing atelectasis versus pneumonia. Sputum culture is pending. White count 15.7. Hemoglobin 15.0. Sodium 138. Potassium 4.7. Creatinine 1.00. He's been initiated on DuoNeb inhalations, ceftriaxone and azithromycin, Pulmicort and Perforomist inhalations, IV Solu-Medrol. He is seen today on the regular medical floor. He is currently awake and alert in no acute distress. He states he is breathing easier today as compared to yesterday. He is maintaining O2 saturations in the mid 90s on 3 L/m per nasal cannula. He is afebrile. Slightly tachycardic. Today's chest x-ray reveals resolved right basilar opacity. No focal consolidation. The patient is seen today 08/15/2019 in follow-up on the regular medical floor. He's been up ambulating in the hallway. He is maintaining O2 saturation in the low 90s on 2 L/m per nasal cannula. Afebrile. Hemodynamically stable. Sputum and blood cultures reveal no growth to date. White count 22.9. Hemoglobin 13.4. Creatinine 0.96. Sodium 140. Potassium 4.5. Continued on DuoNeb inhalations, Pulmicort and Perforomist inhalations, theophylline, Singulair, IV Solu-Medrol. Antibiotics in form of ceftriaxone and azithromycin. Objective - Vital Signs Vital signs: Vital Signs Temp 97.9 F 08/15/19 07:00 Pulse 102 H 08/15/19 12:04 Resp 14 08/15/19 07:49 BP 145/95 08/15/19 07:00 Pulse Ox 94 L 08/15/19 08:23 Intake & Output 08/14/19 08/15/19 08/15/19 18:59 06:59 18:59 Intake Total 1300 800 Balance 1300 800 Intake: Intake, IV Titration 850 800 Amount Sodium Chloride 0.9% 1, 800 700 000 ml @ 100 mls/hr IV . Q10H [facility] Rx#:[id number] cefTRIAXone 1 gm In 50 Sodium Chloride 0.9% 50 ml @ 100 mls/hr IVPB ONCE [facility] Rx#:[id number] cefTRIAXone 1 gm In 100 Sodium Chloride 0.9% 50 ml @ 100 mls/hr IVPB Q24HR [facility] Rx#:[id number] Oral 450 Other: Voiding Method Toilet Toilet Toilet # Voids 3 1 2 - Exam GENERAL EXAM: Very pleasant morbidly obese 58-year-old gentleman. Alert, comfortable in no apparent distress. HEAD: Normocephalic. EYES: Normal reaction of pupils, equal size. NOSE: Clear with pink turbinates. THROAT: No erythema or exudates. NECK: No masses, no JVD. CHEST: No chest wall deformity. LUNGS: Equal air entry with bilateral end expiratory wheeze, diminished CVS: S1 and S2 normal with no audible murmur, regular rhythm. ABDOMEN: No hepatosplenomegaly, normal bowel sounds, no guarding or rigidity. SPINE: No scoliosis or deformity SKIN: No rashes CENTRAL NERVOUS SYSTEM: No focal deficits, tone is normal in all 4 extremities. EXTREMITIES: There is no peripheral edema. No clubbing, no cyanosis. Peripheral pulses are intact. - Labs CBC & Chem 7: 08/15/19 07:06 08/15/19 07:06 Labs: Abnormal Lab Results - Last 24 Hours (Table) 08/14/19 08/14/19 08/15/19 Range/Units 17:00 21:04 06:51 WBC (3.8-10.6) k/uL MCHC (31.0-37.0) g/dL BUN (9-20) mg/dL Glucose (74-99) mg/dL POC Glucose (mg/dL) 148 H 173 H 183 H (75-99) mg/dL 08/15/19 08/15/19 08/15/19 Range/Units 07:06 07:06 11:31 WBC 22.9 H (3.8-10.6) k/uL MCHC 30.7 L (31.0-37.0) g/dL BUN 29 H (9-20) mg/dL Glucose 193 H (74-99) mg/dL POC Glucose (mg/dL) 222 H (75-99) mg/dL Microbiology - Last 24 Hours (Table) 08/13/19 12:10 Blood Culture - Preliminary Blood No Growth after 24 hours 08/14/19 00:05 Gram Stain - Preliminary Sputum Sputum Culture - Preliminary Assessment and Plan Assessment: 1 Acute community acquired pneumonia, failed outpatient treatment 2 Acute exacerbation of moderate persistent chronic bronchial asthma secondary to above 3 Morbid obesity 4 Chronic back pain 5 Hypertension 6 Gastroesophageal reflux disease Plan: The patient was seen and evaluated by Dr. Pat. We'll continue with the current treatment plan including bronchodilators, IV Solu-Medrol, antibiotics in the form of ceftriaxone and azithromycin. We'll continue to follow. I, the cosigning physician, performed a history & physical examination of the patient. Lungs sounds with bilateral end expiratory wheeze, diminished. Maintaining good O2 saturations in the 90s on 3 L/m per nasal cannula. I discussed the assessment and plan of care with my nurse practitioner, Mita Ramey. I attest to the above consultation as dictated by her.
[2019-08-15 16:57] LABS: Glucose,Whole Blood 197 mg/dL (75-99)
[2019-08-15 19:57] LABS: Glucose,Whole Blood 180 mg/dL (75-99)
[2019-08-15] MEDS: METOPROLOL SUCCINATE (ER) 25 MG TAB.ER.24H PO SCH (20:34)
[2019-08-15] MEDS: MONTELUKAST 10 MG TAB PO SCH (20:34)
[2019-08-15] MEDS: TAMSULOSIN 0.4 MG CAP.ER.24H PO SCH (20:34)
[2019-08-16] MEDS: IPRATROPIUM-ALBUTEROL 3 ML NEB INHALATION SCH ×6 (03:45→23:47)
[2019-08-16 06:54] LABS: Glucose,Whole Blood 177 mg/dL (75-99)
[2019-08-16] MEDS: SODIUM CHLORIDE 0.9% 1,000 ML IV SCH ×2 (07:50→11:45)
[2019-08-16] MEDS: methylPREDNISolone SOD SUCCI 40 MG/ML 1 ML VIAL IV SCH ×2 (07:58→16:01)
[2019-08-16] MEDS: INSULIN ASPART (NovoLOG) 100 UNIT/ML VIAL SQ SCH ×4 (07:58→21:38)
[2019-08-16] MEDS: ENOXAPARIN 40 MG/0.4 ML SYRINGE SQ SCH (07:59)
[2019-08-16] MEDS: AZITHROMYCIN 500 MG TAB PO SCH (07:59)
[2019-08-16] MEDS: LOSARTAN 50 MG TAB PO SCH (07:59)
[2019-08-16] MEDS: THEOPHYLLINE 24 HOUR 200 MG CAP.ER.24H PO SCH (07:59)
[2019-08-16] MEDS: GABAPENTIN 300 MG CAP PO SCH ×3 (08:00→21:38)
[2019-08-16] MEDS: LISINOPRIL-HCTZ 10-12.5 MG 1 EACH TAB PO SCH ×2 (08:00→22:22)
[2019-08-16] MEDS: BUDESONIDE 1 MG/2 ML NEBU INHALATION SCH ×2 (08:10→20:15)
[2019-08-16] MEDS: FORMOTEROL FUMARATE 20 MCG/2 ML NEBU INHALATION SCH ×2 (08:10→20:15)
--- NOTE | 2019-08-16 10:35 | XR ---
EXAMINATION TYPE: XR chest 1V portable DATE OF EXAM: 08/16/2019 COMPARISON: 08/14/2019 HISTORY: Cough TECHNIQUE: Single frontal view of the chest is obtained. FINDINGS: Heart size normal. Subsegmental changes at the lung bases. No overt failure or pneumothora x. Biapical pleural thickening. Arthropathy of the shoulders. IMPRESSION: Basilar atelectasis favored over pneumonia correlate clinically.
--- NOTE | 2019-08-16 11:27 | P.PN ---
Subjective Progress Note Date: 08/16/19 Principal diagnosis: Acute community-acquired pneumonia This is a very pleasant 58-year-old gentleman who follows with Dr. Gutierrez as his primary care provider. He has a history of chronic back pain, hypertension, gastroesophageal reflux disease, morbid obesity. He also has a history of moderate persistent chronic bronchial asthma and follows with Dr. Alvarez in our office for the same. He is steroid dependent currently alternating 5 mg with 10 mg every other day. He is on Breo, Ventolin, Singulair, theophylline and DuoNeb inhalations. He is also receiving Xolair. His FEV1 value is 46% of predicted. The patient went to [facility] on 07/29/2019 with complaints of increasing shortness of breath, cough congestion chest tightness and wheezing. He was treated with clindamycin for 10 days which he did improve somewhat however shortly after that he started developing worsening symptoms again. He presented to [facility] yesterday and was told he does have a pneumonia but needed to go to the emergency room. Chest x-ray revealed a subtle right basilar opacity representing atelectasis versus pneumonia. Sputum culture is pending. White count 15.7. Hemoglobin 15.0. Sodium 138. Potassium 4.7. Creatinine 1.00. He's been initiated on DuoNeb inhalations, ceftriaxone and azithromycin, Pulmicort and Perforomist inhalations, IV Solu-Medrol. He is seen today on the regular medical floor. He is currently awake and alert in no acute distress. He states he is breathing easier today as compared to yesterday. He is maintaining O2 saturations in the mid 90s on 3 L/m per nasal cannula. He is afebrile. Slightly tachycardic. Today's chest x-ray reveals resolved right basilar opacity. No focal consolidation. The patient is seen today 08/15/2019 in follow-up on the regular medical floor. He's been up ambulating in the hallway. He is maintaining O2 saturation in the low 90s on 2 L/m per nasal cannula. Afebrile. Hemodynamically stable. Sputum and blood cultures reveal no growth to date. White count 22.9. Hemoglobin 13.4. Creatinine 0.96. Sodium 140. Potassium 4.5. Continued on DuoNeb inhalations, Pulmicort and Perforomist inhalations, theophylline, Singulair, IV Solu-Medrol. Antibiotics in form of ceftriaxone and azithromycin. The patient is seen today 08/16/2019 follow-up on the regular medical floor. He is currently awake and alert in no acute distress. He is feeling a bit worse today compared to yesterday. Continues with a loose cough. Dyspnea, minimal exertion. Chest x-ray reveals basilar atelectasis versus pneumonia. Blood culture reveals no growth. Sputum culture pending. Glucose 177. Remains on antibiotics in the form of ceftriaxone and azithromycin along with bronchodilators and steroids. Objective - Vital Signs Vital signs: Vital Signs Temp 97.6 F 08/16/19 07:00 Pulse 101 H 08/16/19 08:31 Resp 15 08/16/19 07:30 BP 129/78 08/16/19 07:00 Pulse Ox 96 08/16/19 08:10 Intake & Output 08/15/19 08/16/19 08/16/19 18:59 06:59 18:59 Intake Total 800 590 Balance 800 590 Intake: Intake, IV Titration 800 Amount Sodium Chloride 0.9% 1, 700 000 ml @ 100 mls/hr IV . Q10H [facility] Rx#:[id number] cefTRIAXone 1 gm In 100 Sodium Chloride 0.9% 50 ml @ 100 mls/hr IVPB Q24HR [facility] Rx#:[id number] Oral 590 Other: Voiding Method Toilet Toilet # Voids 2 3 3 # Bowel Movements 1 - Exam GENERAL EXAM: Very pleasant, morbidly obese 58-year-old gentleman. Alert, comfortable in no apparent distress. HEAD: Normocephalic. EYES: Normal reaction of pupils, equal size. NOSE: Clear with pink turbinates. THROAT: No erythema or exudates. NECK: No masses, no JVD. CHEST: No chest wall deformity. LUNGS: Equal air entry with bilateral scattered rhonchi, end expiratory wheeze. CVS: S1 and S2 normal with no audible murmur, regular rhythm. ABDOMEN: No hepatosplenomegaly, normal bowel sounds, no guarding or rigidity. SPINE: No scoliosis or deformity SKIN: No rashes CENTRAL NERVOUS SYSTEM: No focal deficits, tone is normal in all 4 extremities. EXTREMITIES: There is no peripheral edema. No clubbing, no cyanosis. Peripheral pulses are intact. - Labs CBC & Chem 7: 08/15/19 07:06 08/15/19 07:06 Labs: Abnormal Lab Results - Last 24 Hours (Table) 08/15/19 08/15/19 08/15/19 Range/Units 11:31 16:56 19:55 POC Glucose (mg/dL) 222 H 197 H 180 H (75-99) mg/dL 08/16/19 Range/Units 06:52 POC Glucose (mg/dL) 177 H (75-99) mg/dL Microbiology - Last 24 Hours (Table) 08/13/19 12:10 Blood Culture - Preliminary Blood No Growth after 48 hours Assessment and Plan Assessment: 1 Acute community acquired pneumonia, failed outpatient treatment, follow-up chest x-ray reveals basilar atelectasis 2 Acute exacerbation of moderate persistent chronic bronchial asthma secondary to above 3 Morbid obesity 4 Chronic back pain 5 Hypertension 6 Gastroesophageal reflux disease Plan: Chest x-ray reviewed. Continue with the current treatment plan. Increase activity as tolerated. We will continue to follow. I, the cosigning physician, performed a history & physical examination of the patient. Lungs sounds with bilateral scattered rhonchi, end expiratory wheeze, diminished. Maintaining good O2 saturations in the 90s on 2 L/m per nasal cannula. I discussed the assessment and plan of care with my nurse Mita wilson. I attest to the above consultation as dictated by her.
[2019-08-16 11:28] LABS: Glucose,Whole Blood 168 mg/dL (75-99)
[2019-08-16 16:29] LABS: Glucose,Whole Blood 192 mg/dL (75-99)
[2019-08-16 20:45] LABS: Glucose,Whole Blood 174 mg/dL (75-99)
[2019-08-16] MEDS: METOPROLOL SUCCINATE (ER) 25 MG TAB.ER.24H PO SCH (21:37)
[2019-08-16] MEDS: MONTELUKAST 10 MG TAB PO SCH (21:37)
[2019-08-16] MEDS: TAMSULOSIN 0.4 MG CAP.ER.24H PO SCH (21:37)
--- NOTE | 2019-08-17 00:06 | P.PN ---
Subjective Progress Note Date: 08/15/19 Principal diagnosis: Acute COPD exacerbation This is a pleasant 58-year-old patient of Dr. Sabrina Gutierrez. Chronic stable medical conditions include BPH,, hypertension,. also follows with communication equipment repairer Dr. Tirado. Patient on July 29 had an attack of asthma with [facility]ERG[facility] care. He was told he also possible pneumonia was given antibiotics and 4 days ago he finished the course. Subsequently patient said having more wheezing dry cough no congestion has had no fever or chills appetite is fair. Presented to the ER. No dizziness no lightheadedness. Admitted with acute COPD exacerbation and pneumonia. Started on bronchodilators, IV ceftriaxone, IV Solu-Medrol. august 14 2019 a bit better. Less wheezing. Less cough. Did tolerate her diet. 08/15/2019 Patient says that his breathing is better. Currently on oxygen 2 L via nasal cannula. She'll having significant wheezing on exam. No complaints of chest pain. Patient does have cough without much sputum prod uction. WBC count is 22.9 Patient is being continued on IV steroids, and DuoNeb's and Pulmicort. A ntibiotics in the form of ceftriaxone and azithromycin. Pulmonary is following. Current medications reviewed. Objective - Vital Signs Vital signs: Vital Signs Temp 97.9 F 08/15/19 07:00 Pulse 102 H 08/15/19 12:04 Resp 14 08/15/19 07:49 BP 145/95 08/15/19 07:00 Pulse Ox 94 L 08/15/19 08:23 Intake & Output 08/14/19 08/15/19 08/15/19 18:59 06:59 18:59 Intake Total 1300 800 Balance 1300 800 Intake: Intake, IV Titration 850 800 Amount Sodium Chloride 0.9% 1, 800 700 000 ml @ 100 mls/hr IV . Q10H [facility] Rx#:[id number] cefTRIAXone 1 gm In 50 Sodium Chloride 0.9% 50 ml @ 100 mls/hr IVPB ONCE STA Rx#:[id number] cefTRIAXone 1 gm In 100 Sodium Chloride 0.9% 50 ml @ 100 mls/hr IVPB Q24HR [facility] Rx#:[id number] Oral 450 Other: Voiding Method Toilet Toilet Toilet # Voids 3 1 2 - Exam GENERAL: BMI 42.1, sitting up, less short of breath EYES: Pupils equal. Conjunctiva normal. HEENT: External appearance of nose and ears normal, oral cavity grossly normal. NECK: JVD unable to assess; masses not palpable. HEART: First and second heart sounds are normal; no edema. LUNGS: Respiratory rate increased, diminished breath sounds prolonged expiration and wheezing. ABDOMEN: Soft, nontender, liver spleen not palpable, no masses palpable. PSYCH: [Alert and oriented x3; mood and affect slightly anxious. - Labs CBC & Chem 7: 08/15/19 07:06 08/15/19 07:06 Labs: Abnormal Lab Results - Last 24 Hours (Table) 08/14/19 08/14/19 08/15/19 Range/Units 17:00 21:04 06:51 WBC (3.8-10.6) k/uL MCHC (31.0-37.0) g/dL BUN (9-20) mg/dL Glucose (74-99) mg/dL POC Glucose (mg/dL) 148 H 173 H 183 H (75-99) mg/dL 08/15/19 08/15/19 08/15/19 Range/Units 07:06 07:06 11:31 WBC 22.9 H (3.8-10.6) k/uL MCHC 30.7 L (31.0-37.0) g/dL BUN 29 H (9-20) mg/dL Glucose 193 H (74-99) mg/dL POC Glucose (mg/dL) 222 H (75-99) mg/dL Microbiology - Last 24 Hours (Table) 08/13/19 12:10 Blood Culture - Preliminary Blood No Growth after 24 hours 08/14/19 00:05 Gram Stain - Preliminary Sputum Sputum Culture - Preliminary Assessment and Plan Assessment: -Acute COPD exacerbation, having failed outpatient treatment patient just finis hed a course of antibiotics and steroids in an ex-smoker, POA -Pneumonia, suspect gram-negative organism, POA -Morbid obesity BMI 42.1 -BPH -Chronic lower back pain with radiculopathy -Essential hypertension Plan: Continue with bronchodilator steroids, antibiotics. And oxygen therapy. Follow up closely and repeat labs.. Time with Patient: Greater than 30
--- NOTE | 2019-08-17 00:08 | P.PN ---
Subjective Progress Note Date: 08/16/19 Principal diagnosis: Acute COPD exacerbation This is a pleasant 58-year-old patient of Dr. Sabrina Gutierrez. Chronic stable medical conditions include BPH,, hypertension,. also follows with k 9 handler/ deputy Dr. Tirado. Patient on July 29 had an attack of asthma with ALLERGIC care. He was told he also possible pneumonia was given antibiotics and 4 days ago he finished the course. Subsequently patient said having more wheezing dry cough no congestion has had no fever or chills appetite is fair. Presented to the ER. No dizziness no lightheadedness. Admitted with acute COPD exacerbation and pneumonia. Started on bronchodilators, IV ceftriaxone, IV Solu-Medrol. august 14 2019 a bit better. Less wheezing. Less cough. Did tolerate her diet. 08/15/2019 Patient says that his breathing is better. Currently on oxygen 2 L via nasal cannula. She'll having significant wheezing on exam. No complaints of chest pain. Patient does have cough without much sputum prod uction. WBC count is 22.9 Patient is being continued on IV steroids, and DuoNeb's and Pulmicort. A ntibiotics in the form of ceftriaxone and azithromycin. Pulmonary is following. August 16 2019 Patient is currently sitting in the chair. Complaints of significant cough and worsening shortness of breath compared to yesterday. Going oxygen via nasal cannula. Chest x-ray showed bibasilar atelectasis versus pneumonia. Sputum Cultures pending at this time. Patient is being continued on IV steroids, DuoNeb's, Pulmicort and antibiotics. Current medications reviewed. Objective - Vital Signs Vital signs: Vital Signs Temp 97.8 F 08/16/19 19:22 Pulse 80 08/16/19 20:38 Resp 16 08/16/19 19:22 BP 150/77 08/16/19 19:22 Pulse Ox 97 08/16/19 16:50 Intake & Output 08/16/19 08/16/19 08/17/19 06:59 18:59 06:59 Intake Total 590 50 300 Balance 590 50 300 Intake: Intake, IV Titration 50 300 Amount Sodium Chloride 0.9% 1, 300 000 ml @ 100 mls/hr IV . Q10H [facility] Rx#:[id number] cefTRIAXone 1 gm In 50 Sodium Chloride 0.9% 50 ml @ 100 mls/hr IVPB Q24HR [facility] Rx#:[id number] Oral 590 Other: Voiding Method Toilet # Voids 3 3 1 # Bowel Movements 1 - Exam GENERAL: BMI 42.1, sitting up, less short of breath EYES: Pupils equal. Conjunctiva normal. HEENT: External appearance of nose and ears normal, oral cavity grossly normal. NECK: JVD unable to assess; masses not palpable. HEART: First and second heart sounds are normal; no edema. LUNGS: Respiratory rate increased, diminished breath sounds prolonged expiration and wheezing. ABDOMEN: Soft, nontender, liver spleen not palpable, no masses palpable. PSYCH: [Alert and oriented x3; mood and affect slightly anxious. - Labs CBC & Chem 7: 08/15/19 07:06 08/15/19 07:06 Labs: Abnormal Lab Results - Last 24 Hours (Table) 08/16/19 08/16/19 08/16/19 Range/Units 06:52 11:27 16:27 POC Glucose (mg/dL) 177 H 168 H 192 H (75-99) mg/dL 08/16/19 Range/Units 20:44 POC Glucose (mg/dL) 174 H (75-99) mg/dL Microbiology - Last 24 Hours (Table) 08/13/19 12:10 Blood Culture - Preliminary Blood No Growth after 72 hours 08/14/19 00:05 Gram Stain - Final Sputum Sputum Culture - Final Assessment and Plan Assessment: -Acute COPD exacerbation, having failed outpatient treatment patient just finished a course of antibiotics and steroids in an ex-smoker, POA -Pneumonia, suspect gram-negative organism, POA -Morbid obesity BMI 42.1 -BPH -Chronic lower back pain with radiculopathy -Essential hypertension Plan: Continue with bronchodilator steroids, antibiotics. And oxygen therapy. Follow up closely and repeat labs.. Time with Patient: Greater than 30
[2019-08-17] MEDS: SODIUM CHLORIDE 0.9% 1,000 ML IV SCH ×2 (00:15→16:56)
[2019-08-17] MEDS: methylPREDNISolone SOD SUCCI 40 MG/ML 1 ML VIAL IV SCH ×4 (00:15→22:51)
[2019-08-17] MEDS: IPRATROPIUM-ALBUTEROL 3 ML NEB INHALATION SCH ×5 (03:40→19:47)
[2019-08-17 06:48] LABS: Glucose,Whole Blood 161 mg/dL (75-99)
[2019-08-17] MEDS: INSULIN ASPART (NovoLOG) 100 UNIT/ML VIAL SQ SCH ×4 (07:45→20:22)
[2019-08-17] MEDS: GABAPENTIN 300 MG CAP PO SCH ×3 (07:46→20:23)
[2019-08-17] MEDS: ENOXAPARIN 40 MG/0.4 ML SYRINGE SQ SCH (07:46)
[2019-08-17] MEDS: AZITHROMYCIN 500 MG TAB PO SCH (07:46)
[2019-08-17] MEDS: LISINOPRIL-HCTZ 10-12.5 MG 1 EACH TAB PO SCH ×2 (07:47→20:23)
[2019-08-17] MEDS: LOSARTAN 50 MG TAB PO SCH (07:47)
[2019-08-17] MEDS: THEOPHYLLINE 24 HOUR 200 MG CAP.ER.24H PO SCH (07:47)
[2019-08-17] MEDS: FORMOTEROL FUMARATE 20 MCG/2 ML NEBU INHALATION SCH ×2 (07:48→20:02)
[2019-08-17] MEDS: BUDESONIDE 1 MG/2 ML NEBU INHALATION SCH ×2 (07:48→19:47)
[2019-08-17 08:31] LABS: Basophils % (A) 0 %; Eosinophils # (A) 0.1 k/uL (0-0.7); Eosinophils % (A) 0 %; HCT 46.9 % (39.0-53.0); HGB 14.8 gm/dL (13.0-17.5); Lymphocytes # (A) 1.7 k/uL (1.0-4.8); Lymphocytes % (A) 8 %; MCH 30.5 pg (25.0-35.0); MCHC 31.7 g/dL (31.0-37.0); MCV 96.5 fL (80.0-100.0); Mean Platelet Volume 8.5; Monocytes % (A) 5 %; Neutrophils # (A) 18.5 k/uL (1.3-7.7); Neutrophils % (A) 86 %; Platelet Count 325 k/uL (150-450); RBC 4.86 m/uL (4.30-5.90); RDW 13.7 % (11.5-15.5); WBC 21.4 k/uL (3.8-10.6)
--- NOTE | 2019-08-17 08:33 | P.PN ---
Subjective Progress Note Date: 08/17/19 On 08/17/2019 patient seen in follow-up on general medical floor, he sitting up in the chair, he is currently on 3 L of oxygen with a pulse ox of 96%, afebrile, hemodynamically stable, he still states he has exertional dyspnea, and yesterday she was coughing up some yellow and green colored sputum, today his cough is non-congested, lung sounds reveal expiratory wheezes, and prolongation of the expiratory phase of breathing, she remains on, and a Rocephin and Zithromax, blood and sputum cultures have been negative, patient has been afebrile, no complaints of chest pain, no hemoptysis. Patient has been ambulating within the room. Usually not oxygen dependent, does have a nebulizer treatments at home, Héctor on IV steroids, breathing treatments, yesterday chest x-ray has been reviewed showing left basilar atelectasis. Objective - Vital Signs Vital signs: Vital Signs Temp 97.9 F 08/17/19 07:00 Pulse 87 08/17/19 08:14 Resp 18 08/17/19 07:00 BP 156/99 08/17/19 07:00 Pulse Ox 96 08/17/19 07:51 Intake & Output 08/16/19 08/17/19 08/17/19 18:59 06:59 18:59 Intake Total 50 300 Output Total 300 Balance 50 0 Intake: Intake, IV Titration 50 300 Amount Sodium Chloride 0.9% 1, 300 000 ml @ 100 mls/hr IV . Q10H NELI Rx#:[id number] cefTRIAXone 1 gm In 50 Sodium Chloride 0.9% 50 ml @ 100 mls/hr IVPB Q24HR NELI Rx#:[id number] Output: Urine 300 Other: Voiding Method Toilet # Voids 3 1 # Bowel Movements 1 - Exam GENERAL EXAM: Alert, very pleasant, 58-year-old obese white male, on 3 L of oxygen with a pulse ox 96% comfortable in no apparent distress. HEAD: Normocephalic/atraumatic. EYES: Normal reaction of pupils, equal size. Conjunctiva pink, sclera white. NOSE: Clear with pink turbinates. THROAT: No erythema or exudates. NECK: No masses, no JVD, no thyroid enlargement, no adenopathy. CHEST: No chest wall deformity. Symmetrical expansion. LUNGS: Equal air entry with expiratory wheezes, and prolongation of expiratory phase of breathing CVS: Regular rate and rhythm, normal S1 and S2, no gallops, no murmurs, no rubs ABDOMEN: Soft, nontender. No hepatosplenomegaly, normal bowel sounds, no guarding or rigidity. EXTREMITIES: No clubbing, no edema, no cyanosis, 2+ pulses and upper and lower extremities. MUSCULOSKELETAL: Muscle strength and tone normal. SPINE: No scoliosis or deformity SKIN: No rashes CENTRAL NERVOUS SYSTEM: Alert and oriented -3. No focal deficits, tone is normal in all 4 extremities. PSYCHIATRIC: Alert and oriented -3. Appropriate affect. Intact judgment and insight. - Labs CBC & Chem 7: 08/15/19 07:06 08/15/19 07:06 Labs: Abnormal Lab Results - Last 24 Hours (Table) 08/16/19 08/16/19 08/16/19 Range/Units 11:27 16:27 20:44 POC Glucose (mg/dL) 168 H 192 H 174 H (75-99) mg/dL 08/17/19 Range/Units 06:46 POC Glucose (mg/dL) 161 H (75-99) mg/dL Microbiology - Last 24 Hours (Table) 08/13/19 12:10 Blood Culture - Preliminary Blood No Growth after 72 hours 08/14/19 00:05 Gram Stain - Final Sputum Sputum Culture - Final Assessment and Plan Plan: Assessment: 1 Acute community acquired pneumonia, failed outpatient treatment, follow-up chest x-ray reveals basilar atelectasis 2 Acute exacerbation of moderate persistent chronic bronchial asthma secondary to above 3 Morbid obesity 4 Chronic back pain 5 Hypertension 6 Gastroesophageal reflux disease Plan: Continue current medical treatment, IV steroids, and current antibiotics, no fever or chills, blood and sputum have been negative for any microbial growth, pro-calcitonin is negative at 0.05, still has wheezing and exertional dyspnea, overall improving. We'll obtain home oxygen assessment, increase activity as tolerated I performed a history & physical examination of the patient and discussed their management with my nurse practitioner, Jessica Carvalho. I reviewed the nurse practitioner's note and agree with the documented findings and plan of care. Lung sounds are positive for expiratory wheezing and prolongation of expiratory phase of breathing. The findings and the impression was discussed with the patient. I attest to the documentation by the nurse practitioner. Time with Patient: Less than 30
[2019-08-17 08:46] LABS: African American GFR (CKD) >90 (>60 ml/min/1.73 sqM); Anion Gap 10 mmol/L; Blood Urea Nitrogen 27 mg/dL (9-20); Calcium 9.6 mg/dL (8.4-10.2); Carbon Dioxide 29 mmol/L (22-30); Chloride 100 mmol/L (98-107); Glucose 173 mg/dL (74-99); Non-African American GFR(CKD) 79 (>60 ml/min/1.73 sqM); Sodium 139 mmol/L (137-145)
[2019-08-17 11:47] LABS: Glucose,Whole Blood 146 mg/dL (75-99)
[2019-08-17 16:51] LABS: Glucose,Whole Blood 180 mg/dL (75-99)
[2019-08-17 20:19] LABS: Glucose,Whole Blood 168 mg/dL (75-99)
[2019-08-17] MEDS: METOPROLOL SUCCINATE (ER) 25 MG TAB.ER.24H PO SCH (20:23)
[2019-08-17] MEDS: MONTELUKAST 10 MG TAB PO SCH (20:24)
[2019-08-17] MEDS: TAMSULOSIN 0.4 MG CAP.ER.24H PO SCH (20:24)
[2019-08-18] MEDS: SODIUM CHLORIDE 0.9% 1,000 ML IV SCH ×2 (00:09→05:05)
[2019-08-18] MEDS: IPRATROPIUM-ALBUTEROL 3 ML NEB INHALATION SCH ×5 (00:26→15:56)
[2019-08-18 06:55] LABS: Glucose,Whole Blood 168 mg/dL (75-99)
[2019-08-18] MEDS: THEOPHYLLINE 24 HOUR 200 MG CAP.ER.24H PO SCH (07:16)
[2019-08-18] MEDS: INSULIN ASPART (NovoLOG) 100 UNIT/ML VIAL SQ SCH ×3 (07:17→17:03)
[2019-08-18] MEDS: methylPREDNISolone SOD SUCCI 40 MG/ML 1 ML VIAL IV SCH (07:17)
[2019-08-18] MEDS: LOSARTAN 50 MG TAB PO SCH (07:17)
[2019-08-18] MEDS: LISINOPRIL-HCTZ 10-12.5 MG 1 EACH TAB PO SCH (07:17)
[2019-08-18] MEDS: GABAPENTIN 300 MG CAP PO SCH ×2 (07:17→17:02)
[2019-08-18] MEDS: AZITHROMYCIN 500 MG TAB PO SCH (07:17)
[2019-08-18] MEDS: ENOXAPARIN 40 MG/0.4 ML SYRINGE SQ SCH (07:18)
[2019-08-18 07:54] LABS: African American GFR (CKD) >90 (>60 ml/min/1.73 sqM); Anion Gap 7 mmol/L; Blood Urea Nitrogen 26 mg/dL (9-20); Calcium 9.5 mg/dL (8.4-10.2); Carbon Dioxide 30 mmol/L (22-30); Chloride 99 mmol/L (98-107); Glucose 165 mg/dL (74-99); Non-African American GFR(CKD) 80 (>60 ml/min/1.73 sqM); Potassium 4.7 mmol/L (3.5-5.1); Sodium 136 mmol/L (137-145)
[2019-08-18 07:59] VITALS: TEMP 97.4
[2019-08-18 08:01] LABS: Basophils % (A) 0 %; Eosinophils % (A) 0 %; HCT 44.5 % (39.0-53.0); HGB 14.4 gm/dL (13.0-17.5); Lymphocytes # (A) 1.5 k/uL (1.0-4.8); Lymphocytes % (A) 8 %; MCH 30.5 pg (25.0-35.0); MCHC 32.4 g/dL (31.0-37.0); MCV 94.1 fL (80.0-100.0); Mean Platelet Volume 8.5; Monocytes # (A) 0.9 k/uL (0-1.0); Monocytes % (A) 5 %; Neutrophils # (A) 17.2 k/uL (1.3-7.7); Neutrophils % (A) 87 %; Platelet Count 300 k/uL (150-450); RBC 4.73 m/uL (4.30-5.90); RDW 13.6 % (11.5-15.5); WBC 19.8 k/uL (3.8-10.6)
[2019-08-18] MEDS: BUDESONIDE 1 MG/2 ML NEBU INHALATION SCH (08:16)
[2019-08-18] MEDS: FORMOTEROL FUMARATE 20 MCG/2 ML NEBU INHALATION SCH (08:16)
[2019-08-18 11:45] LABS: Glucose,Whole Blood 182 mg/dL (75-99)
[2019-08-18] MEDS ORDERED: predniSONE 20 MG TAB PO SCH (11:45)
--- NOTE | 2019-08-18 12:30 | CDI ---
Documentation Clarification Form Date: 08/18/2019 12:18:50 PM From: Inez Hughes CCS, CCDS Admit Date: 08/13/2019 02:09:00 PM Patient Name: Surinder Stephenson Visit Number: [id number] Discharge Date: ATTENTION: The Clinical Documentation Specialists (CDI) and [facility] Coding Staff appreciate your assistance in clarifying documentation. Please respond to the clarification below the line at the bottom and electronically sign. The CDI & [facility] Coding staff will review the response and follow-up if needed. Please note: Queries are made part of the Legal Health Record. If you have any questions, please contact the author of this message via ITS. Dr. Aniyah Ann: Per the 08/14, 08/15 & 08/15 Attending Progress Notes: "suspect gram-negative pneumonia" is documented without a further definitive diagnosis. History/Risk Factors: Hypertension, Hyperlipidemia, Morbid obesity w/BMI >30, Chronic lower back pain with radiculopathy, BPH, Asthma nos. Former smoker. Clinical Indicators: Per the 08/12 History & Physical: Wheezing, cough. Patient was told on 07/29 that he possibly had pneumonia after an asthma attack, completed antibiotics four days prior to this admission. Vital signs 08/12: P 113, R 20 (sob), BP 182/83 LAB 08/12: WBC 15.7^, Neut 13.2^, Lactic Acid 2.6^^, 3.1^^. 08/12 Blood culture: preliminary negative 08/13 Sputum culture: final negative Treatment on admission: INH Albuterol, IV Solumedrol, IV Azithromycin, IV Rocephin, O2 3Lnc. In order to capture the severity of condition, please clarify the type of pneumonia you are treating the patient for: Bacterial Pneumonia, specify causal organism (if known) o Gram Negative Pneumonia Due to Strep Due to Staph Due to E. Coli Other bacteria (please specify) Viral Pneumonia, specify casual organism (if known) Healthcare Acquired Pneumonia/Pneumonia, unspecified Other, please specify Unable to determine (Last Revision: September 2017) Bacterial pneumonia possible gram-negative. On César dodson. MTDD
[2019-08-18 15:20] VITALS: BP 147/84; RESP 18
[2019-08-18 15:59] VITALS: PULSE 89
[2019-08-18 16:35] LABS: Glucose,Whole Blood 243 mg/dL (75-99)
== END 2019-08-18 17:24 | disposition home or self-care (01) | DRG 190 ==
LOC: EC 11:13 → 4SSUR 14:09
PROVIDERS: ADMIT Hospitalist; ATTEND Hospitalist
DX: J44.1 Chronic obstructive pulmonary disease with (acute) exacerbation (principal); J15.6 Pneumonia due to other Gram-negative bacteria; J45.41 Moderate persistent asthma with (acute) exacerbation; Z68.41 Body mass index [BMI] 40.0-44.9, adult; J44.0 Chronic obstructive pulmonary disease with (acute) lower respiratory infection; Z87.891 Personal history of nicotine dependence; E66.01 Morbid (severe) obesity due to excess calories; E78.5 Hyperlipidemia, unspecified; G89.29 Other chronic pain; I10 Essential (primary) hypertension; K21.9 Gastro-esophageal reflux disease without esophagitis; M54.10 Radiculopathy, site unspecified; N40.0 Benign prostatic hyperplasia without lower urinary tract symptoms; Z79.52 Long term (current) use of systemic steroids; Z79.899 Other long term (current) drug therapy; Z82.49 Family history of ischemic heart disease and other diseases of the circulatory system
CPT/HCPCS: 36415; 71045; 71046; 80048; 80053; 83605; 84145; 85025; 85027; 85610; 85730; 87040; 87070; 87205; 93005; 94640; 94760; 96374; 99291

== ENCOUNTER 2020-01-07 14:23 | Observation (INO) | payer MEDICARE, OTHER ==
[2020-01-07] MEDS ORDERED: SODIUM CHLORIDE 0.9% 1,000 ML IV STA ×2 (15:06)
[2020-01-07] MEDS ORDERED: IPRATROPIUM-ALBUTEROL 3 ML NEB INHALATION STA (15:06)
[2020-01-07] MEDS ORDERED: methylPREDNISolone SOD SUCCI 125 MG/2 ML VIAL IV STA (15:06)
--- NOTE | 2020-01-07 15:25 | ED ---
General Adult HPI - General Source: patient, RN notes reviewed, old records reviewed Mode of arrival: wheelchair Limitations: no limitations <Radha Mclean - Last Filed: 01/07/20 18:17> <Sarah Rodriguez - Last Filed: 01/12/20 08:35> - General Chief complaint: Shortness of Breath Stated complaint: shortness of breath, cough Time Seen by Provider: 01/07/20 14:53 - History of Present Illness Initial comments: Patient is a 59-year-old male who presents emergency department today with shortness of breath, leaning is related to asthma exacerbation starting on Saturday of this past weekend. Patient states has been progressively worse. He went to urgent care today who sent him here for further evaluation. He reported that the chest x-ray showed evidence of bilateral "collapsed lung" at [facility]. Patient reports that he has had a mild productive cough. He denies any localized chest pain. Patient states he's had no nausea or vomiting. He has been admitted to hospital for pneumonia in the past. (Radha Mclean) - Related Data Home Medications Medication Instructions Recorded Confirmed Albuterol Nebulized [Ventolin 2.5 mg INHALATION RT-Q6H PRN 08/13/19 01/07/20 Nebulized] Albuterol Sulfate [Ventolin HFA] 2 puff INHALATION RT-Q6H PRN 08/13/19 01/07/20 Cyclobenzaprine [Flexeril] 10 mg PO BID PRN 08/13/19 01/07/20 Gabapentin [Neurontin] 300 mg PO HS 08/13/19 01/07/20 Ipratropium Nebulized [Atrovent 0.5 mg INHALATION RT-Q6H PRN 08/13/19 01/07/20 Nebulized 0.2 MG/ML] Losartan Potassium 100 mg PO DAILY 08/13/19 01/07/20 Montelukast [Singulair] 10 mg PO HS 08/13/19 01/07/20 Tamsulosin [Flomax] 0.4 mg PO HS 08/13/19 01/07/20 Theophylline 24 Hour [Raghavendra-24] 400 mg PO HS 08/13/19 01/07/20 Xolair Unknown Dose 1 dose SQ Q14D 08/13/19 01/07/20 hydroCHLOROthiazide [Hydrodiuril] 25 mg PO DAILY 08/13/19 01/07/20 predniSONE 5 mg PO MOWEFR 08/13/19 01/07/20 predniSONE 10 mg PO SUTUTHSA 08/13/19 01/07/20 Budesonide/Formoterol Fumarate 2 puff INHALATION RT-BID 01/07/20 01/07/20 [Symbicort 160-4.5 Mcg Inhaler] Celecoxib [CeleBREX] 100 mg PO BID 01/07/20 01/07/20 Lidocaine 5% Patch [Lidoderm 5% 1 patch TOPICAL DAILY 01/07/20 01/07/20 Patch] Metoprolol Succinate (ER) [Toprol 50 mg PO HS 01/07/20 01/07/20 XL] Pravastatin Sodium [Pravachol] 10 mg PO HS 01/07/20 01/07/20 Previous Rx's Medication Instructions Recorded Azithromycin [Zithromax] 500 mg PO DAILY #3 tab 01/08/20 predniSONE 10 mg PO DAILY #30 tab 01/08/20 Allergies Allergy/AdvReac Type Severity Reaction Status Date / Time Penicillins Allergy Rash/Hives Verified 01/07/20 19:17 Review of Systems ROS Other: All systems not noted in ROS Statement are negative. <Radha Mclean - Last Filed: 01/07/20 18:17> ROS Other: All systems not noted in ROS Statement are negative. <Sarah Rodriguez - Last Filed: 01/12/20 08:35> ROS Statement: Those systems with pertinent positive or pertinent negative responses have been documented in the HPI. Past Medical History Past Medical History: Asthma, Hyperlipidemia, Hypertension History of Any Multi-Drug Resistant Organisms: None Reported Additional Past Surgical History / Comment(s): septum surgery, nission procedure on stomach, nerve ablation on back. Past Psychological History: No Psychological Hx Reported Smoking Status: Former smoker Past Alcohol Use History: None Reported Past Drug Use History: None Reported - Past Family History Father Family Medical History: Myocardial Infarction ([place]) Mother Family Medical History: Cancer <Radha Mclean - Last Filed: 01/07/20 18:17> General Exam Limitations: no limitations General appearance: alert, in no apparent distress Head exam: Present: atraumatic, normocephalic, normal inspection Eye exam: Present: normal appearance, PERRL, EOMI. Absent: scleral icterus, conjunctival injection, periorbital swelling ENT exam: Present: normal exam, mucous membranes moist Neck exam: Present: normal inspection. Absent: tenderness, meningismus, lymphadenopathy Respiratory exam: Present: wheezes, decreased breath sounds. Absent: normal lung sounds bilaterally, respiratory distress, rales, rhonchi, stridor Cardiovascular Exam: Present: regular rate, normal rhythm, normal heart sounds. Absent: systolic murmur, diastolic murmur, rubs, gallop, clicks GI/Abdominal exam: Present: soft, normal bowel sounds. Absent: distended, tenderness, guarding, rebound, rigid Extremities exam: Present: normal inspection, full ROM, normal capillary refill. Absent: tenderness, pedal edema, joint swelling, calf tenderness Back exam: Present: normal inspection Neurological exam: Present: alert, oriented X3, CN II-XII intact <Radha Mclean - Last Filed: 01/07/20 18:17> - General Exam Comments Initial Comments: 59-year-old male. Alert and oriented. No significant distress. (Radha Mclean) Course Vital Signs 01/07/20 01/07/20 01/07/20 14:40 14:59 15:59 Temperature 98.4 F Pulse Rate 117 H 104 H Respiratory 22 24 Rate Blood Pressure 99/65 O2 Sat by Pulse 96 Oximetry 01/07/20 01/07/20 01/07/20 16:13 17:47 18:56 Temperature Pulse Rate 106 H 103 H 89 Respiratory 16 16 Rate Blood Pressure 144/88 144/89 O2 Sat by Pulse 93 L 96 Oximetry EKG Findings - EKG Comments: EKG Findings:: EKG performed at 1451 shows accelerated junctional rhythm. Abnormal EKG. Ventricular rate 118 bpm. Verbal and detected. Frustration is 86 no seconds. QT QTc is 322/451 ms. <Radha Mclean - Last Filed: 01/07/20 18:17> Medical Decision Making - Lab Data Result diagrams: 01/07/20 15:18 01/07/20 15:18 - Radiology Data Radiology results: report reviewed <Radha Mclean - Last Filed: 01/07/20 18:17> - Lab Data Result diagrams: 01/07/20 15:18 01/07/20 15:18 <Sarah Rodriguez - Last Filed: 01/12/20 08:35> - Medical Decision Making 59-year-old male with history of asthma presents today with worsening cough shortness of breath. Essentially tachycardic, blood pressure and hypoxic on exam. Patient had diffuse wheezing throughout lungs. He was given IV fluids, Solu-Medrol. He does have an elevated lactic acid. The sono have a positive d- dimer. CT chest angiogram is completed. Is no evidence of pulmonary wasn't. There is evidence of a filling defect on the left ventricle be further characterized a cardiac CT. He reports no localized chest pains at this time and his troponin test is negative. At this time Patient be treated for COPD exacerbation and tracheobronchitis with Rocephin and azithromycin and IV adonis roids. Discussed admit with Dr. Rodriguez. (Radha Mclean) I was available for consultation in the emergency department. The history and physical exam were done by the midlevel provider. I was consulted for this patients care. I reviewed the case with the midlevel provider and based on their presentation of the patient, I agree with the assessment, medical decision making and plan of care as documented. I discussed the case with Dr. Wall who agreed to hospital admission. Chart was dictated using [employer] dictation software. Attempts were made to correct any dictation errors however some typographical errors may persist. (Sarah Rodriguez) - Lab Data Lab Results 01/07/20 01/07/20 01/07/20 Range/Units 15:18 15:18 15:18 WBC 16.8 H (3.8-10.6) k/uL RBC 4.90 (4.30-5.90) m/uL Hgb 14.6 (13.0-17.5) gm/dL Hct 46.8 (39.0-53.0) % MCV 95.5 (80.0-100.0) fL MCH 29.8 (25.0-35.0) pg MCHC 31.2 (31.0-37.0) g/dL RDW 13.6 (11.5-15.5) % Plt Count 297 (150-450) k/uL Neutrophils % 71 % Lymphocytes % 16 % Monocytes % 5 % Eosinophils % 6 % Basophils % 1 % Neutrophils # 11.9 H (1.3-7.7) k/uL Lymphocytes # 2.7 (1.0-4.8) k/uL Monocytes # 0.9 (0-1.0) k/uL Eosinophils # 1.1 H (0-0.7) k/uL Basophils # 0.1 (0-0.2) k/uL PT 9.6 (9.0-12.0) sec INR 0.9 (<1.2) APTT 22.1 (22.0-30.0) sec D-Dimer 1.53 H (<0.60) mg/L FEU Sodium 138 (137-145) mmol/L Potassium 4.1 (3.5-5.1) mmol/L Chloride 101 (98-107) mmol/L Carbon Dioxide 24 (22-30) mmol/L Anion Gap 13 mmol/L BUN 21 H (9-20) mg/dL Creatinine 1.18 (0.66-1.25) mg/dL Est GFR (CKD-EPI)AfAm 77 (>60 ml/min/1.73 sqM) Est GFR (CKD-EPI)NonAf 66 (>60 ml/min/1.73 sqM) Glucose 232 H (74-99) mg/dL Estimated Ave Glu mg/dL Hemoglobin A1c (4.0-6.0) % Lactic Ac Sepsis Rflx Plasma Lactic Acid Momo (0.7-2.0) mmol/L Calcium 9.2 (8.4-10.2) mg/dL Magnesium 2.2 (1.6-2.3) mg/dL Total Bilirubin 0.5 (0.2-1.3) mg/dL AST 33 (17-59) U/L ALT 30 (4-49) U/L Alkaline Phosphatase 105 (38-126) U/L Troponin I (0.000-0.034) ng/mL NT-Pro-B Natriuret Pep pg/mL Total Protein 6.7 (6.3-8.2) g/dL Albumin 4.2 (3.5-5.0) g/dL Coronavirus (PCR) (Not Detected) 01/07/20 01/07/20 01/07/20 Range/Units 15:18 15:18 15:18 WBC (3.8-10.6) k/uL RBC (4.30-5.90) m/uL Hgb (13.0-17.5) gm/dL Hct (39.0-53.0) % MCV (80.0-100.0) fL MCH (25.0-35.0) pg MCHC (31.0-37.0) g/dL RDW (11.5-15.5) % Plt Count (150-450) k/uL Neutrophils % % Lymphocytes % % Monocytes % % Eosinophils % % Basophils % % Neutrophils # (1.3-7.7) k/uL Lymphocytes # (1.0-4.8) k/uL Monocytes # (0-1.0) k/uL Eosinophils # (0-0.7) k/uL Basophils # (0-0.2) k/uL PT (9.0-12.0) sec INR (<1.2) APTT (22.0-30.0) sec D-Dimer (<0.60) mg/L FEU Sodium (137-145) mmol/L Potassium (3.5-5.1) mmol/L Chloride (98-107) mmol/L Carbon Dioxide (22-30) mmol/L Anion Gap mmol/L BUN (9-20) mg/dL Creatinine (0.66-1.25) mg/dL Est GFR (CKD-EPI)AfAm (>60 ml/min/1.73 sqM) Est GFR (CKD-EPI)NonAf (>60 ml/min/1.73 sqM) Glucose (74-99) mg/dL Estimated Ave Glu mg/dL Hemoglobin A1c (4.0-6.0) % Lactic Ac Sepsis Rflx Plasma Lactic Acid Momo 3.5 H* (0.7-2.0) mmol/L Calcium (8.4-10.2) mg/dL Magnesium (1.6-2.3) mg/dL Total Bilirubin (0.2-1.3) mg/dL AST (17-59) U/L ALT (4-49) U/L Alkaline Phosphatase (38-126) U/L Troponin I <0.012 (0.000-0.034) ng/mL NT-Pro-B Natriuret Pep 57 pg/mL Total Protein (6.3-8.2) g/dL Albumin (3.5-5.0) g/dL Coronavirus (PCR) (Not Detected) 01/07/20 01/07/20 01/07/20 Range/Units 15:18 15:52 16:15 WBC (3.8-10.6) k/uL RBC (4.30-5.90) m/uL Hgb (13.0-17.5) gm/dL Hct (39.0-53.0) % MCV (80.0-100.0) fL MCH (25.0-35.0) pg MCHC (31.0-37.0) g/dL RDW (11.5-15.5) % Plt Count (150-450) k/uL Neutrophils % % Lymphocytes % % Monocytes % % Eosinophils % % Basophils % % Neutrophils # (1.3-7.7) k/uL Lymphocytes # (1.0-4.8) k/uL Monocytes # (0-1.0) k/uL Eosinophils # (0-0.7) k/uL Basophils # (0-0.2) k/uL PT (9.0-12.0) sec INR (<1.2) APTT (22.0-30.0) sec D-Dimer (<0.60) mg/L FEU Sodium (137-145) mmol/L Potassium (3.5-5.1) mmol/L Chloride (98-107) mmol/L Carbon Dioxide (22-30) mmol/L Anion Gap mmol/L BUN (9-20) mg/dL Creatinine (0.66-1.25) mg/dL Est GFR (CKD-EPI)AfAm (>60 ml/min/1.73 sqM) Est GFR (CKD-EPI)NonAf (>60 ml/min/1.73 sqM) Glucose (74-99) mg/dL Estimated Ave Glu mg/dL 146 Hemoglobin A1c 6.7 H (4.0-6.0) % Lactic Ac Sepsis Rflx Y Plasma Lactic Acid Momo (0.7-2.0) mmol/L Calcium (8.4-10.2) mg/dL Magnesium (1.6-2.3) mg/dL Total Bilirubin (0.2-1.3) mg/dL AST (17-59) U/L ALT (4-49) U/L Alkaline Phosphatase (38-126) U/L Troponin I (0.000-0.034) ng/mL NT-Pro-B Natriuret Pep pg/mL Total Protein (6.3-8.2) g/dL Albumin (3.5-5.0) g/dL Coronavirus (PCR) Not Detected (Not Detected) 01/07/20 Range/Units 18:10 WBC (3.8-10.6) k/uL RBC (4.30-5.90) m/uL Hgb (13.0-17.5) gm/dL Hct (39.0-53.0) % MCV (80.0-100.0) fL MCH (25.0-35.0) pg MCHC (31.0-37.0) g/dL RDW (11.5-15.5) % Plt Count (150-450) k/uL Neutrophils % % Lymphocytes % % Monocytes % % Eosinophils % % Basophils % % Neutrophils # (1.3-7.7) k/uL Lymphocytes # (1.0-4.8) k/uL Monocytes # (0-1.0) k/uL Eosinophils # (0-0.7) k/uL Basophils # (0-0.2) k/uL PT (9.0-12.0) sec INR (<1.2) APTT (22.0-30.0) sec D-Dimer (<0.60) mg/L FEU Sodium (137-145) mmol/L Potassium (3.5-5.1) mmol/L Chloride (98-107) mmol/L Carbon Dioxide (22-30) mmol/L Anion Gap mmol/L BUN (9-20) mg/dL Creatinine (0.66-1.25) mg/dL Est GFR (CKD-EPI)AfAm (>60 ml/min/1.73 sqM) Est GFR (CKD-EPI)NonAf (>60 ml/min/1.73 sqM) Glucose (74-99) mg/dL Estimated Ave Glu mg/dL Hemoglobin A1c (4.0-6.0) % Lactic Ac Sepsis Rflx Plasma Lactic Acid Momo 1.4 (0.7-2.0) mmol/L Calcium (8.4-10.2) mg/dL Magnesium (1.6-2.3) mg/dL Total Bilirubin (0.2-1.3) mg/dL AST (17-59) U/L ALT (4-49) U/L Alkaline Phosphatase (38-126) U/L Troponin I (0.000-0.034) ng/mL NT-Pro-B Natriuret Pep pg/mL Total Protein (6.3-8.2) g/dL Albumin (3.5-5.0) g/dL Coronavirus (PCR) (Not Detected) - Radiology Data CT is negative for pulmonary wasn't. Incidental finding of left ventricular apex finding of myocardial thing pending at the left ventricle apex was be further characterized with echocardiography rededicated cardiac CT. (Radha Mclean) Disposition Is patient prescribed a controlled substance at d/c from ED?: No Time of Disposition: 18:20 <Radha Mclean - Last Filed: 01/07/20 18:17> <Sarah Rodriguez - Last Filed: 01/12/20 08:35> Clinical Impression: Asthma with acute exacerbation, Tracheobronchitis, Lactic acidosis Disposition: ADMITTED IP TO THIS HOSP Condition: Stable
[2020-01-07 15:28] LABS: Basophils # (A) 0.1 k/uL (0-0.2); Basophils % (A) 1 %; Eosinophils # (A) 1.1 k/uL (0-0.7); Eosinophils % (A) 6 %; HCT 46.8 % (39.0-53.0); HGB 14.6 gm/dL (13.0-17.5); Lymphocytes # (A) 2.7 k/uL (1.0-4.8); Lymphocytes % (A) 16 %; MCH 29.8 pg (25.0-35.0); MCHC 31.2 g/dL (31.0-37.0); MCV 95.5 fL (80.0-100.0); Mean Platelet Volume 8.3; Monocytes # (A) 0.9 k/uL (0-1.0); Monocytes % (A) 5 %; Neutrophils # (A) 11.9 k/uL (1.3-7.7); Neutrophils % (A) 71 %; Platelet Count 297 k/uL (150-450); RDW 13.6 % (11.5-15.5); WBC 16.8 k/uL (3.8-10.6)
[2020-01-07 15:41] LABS: INR 0.9 (<1.2); Partial Thromboplastin Time 22.1 sec (22.0-30.0); Prothrombin Time 9.6 sec (9.0-12.0)
[2020-01-07 15:44] LABS: Albumin 4.2 g/dL (3.5-5.0); Calcium 9.2 mg/dL (8.4-10.2); Magnesium 2.2 mg/dL (1.6-2.3); Potassium 4.1 mmol/L (3.5-5.1); Total Bilirubin 0.5 mg/dL (0.2-1.3); Total Protein 6.7 g/dL (6.3-8.2)
[2020-01-07 15:54] LABS: D-Dimer 1.53 mg/L FEU (<0.60)
[2020-01-07] MEDS ORDERED: SODIUM CHLORIDE 0.9% 1,000 ML IV ONE (16:00)
[2020-01-07] MEDS ORDERED: cefTRIAXone IN SWFI 1,000 MG/10 ML SYRINGE IVP STA (17:21)
--- NOTE | 2020-01-07 17:23 | CT ---
EXAMINATION TYPE: CT chest angio for PE with contrast and with 3-D reconstruction renderings DATE OF EXAM: 01/07/2020 COMPARISON: Chest x-ray 01/07/2020 1214 hours HISTORY: Shortness of breath CT DLP: 1138.4 mGycm Automated exposure control for dose reduction was used. CONTRAST: CT Chest for pulmonary embolism performed with with IV Contrast, patient injected with 100 mL of Isovue 370. FINDINGS: LUNGS AND PLEURAL SPACES: There are scattered cylindrical bronchiectasis changes with right middle lo be and lingular cicatrizing pulmonary scarring noted; these changes are relatively mild in degree. Th ere is no evidence of pulmonary edema or major atelectasis or pneumonia. Pleural spaces are negative. MEDIASTINUM: There is moderate contrast-enhancement of the pulmonary artery and its branches; there i s no CT evidence for pulmonary embolism. No acute aortic findings. No mass or adenopathy. There is no pericardial effusion. There is no cardiomegaly, but there is a 1 cm zone of myocardial thinning at the left ventricular ape x, which can be further characterized with echocardiography or dedicated cardiac CT. Coronary calcif ications noted. OTHER: No additional significant abnormality is seen. IMPRESSION: 1. Negative for pulmonary embolism. 2. Incidental finding: left ventricular apex finding as detailed; cardiac calcifications.
[2020-01-07] MEDS ORDERED: IPRATROPIUM-ALBUTEROL 3 ML NEB INHALATION PRN (18:21)
[2020-01-07] MEDS ORDERED: IPRATROPIUM 0.5 MG/2.5 ML NEBU INHALATION PRN (18:22)
[2020-01-07] MEDS ORDERED: CYCLOBENZAPRINE 10 MG TAB PO PRN (18:22)
[2020-01-07] MEDS ORDERED: ALBUTEROL HFA INHALER INHALATION PRN (18:22)
[2020-01-07] MEDS ORDERED: ALBUTEROL NEBULIZED 2.5 MG/3 ML INHALATION PRN (18:22)
[2020-01-07] MEDS ORDERED: [UNRECOGNIZED DRUG - OTHER] SQ SCH (18:30)
[2020-01-07] MEDS: SYMBICORT 160-4.5 MCG INHALER INHALATION SCH (19:56)
[2020-01-07] MEDS ORDERED: METOPROLOL SUCCINATE (ER) 50 MG TAB.ER.24H PO SCH (20:06)
[2020-01-07] MEDS ORDERED: THEOPHYLLINE 24 HOUR 400 MG CAP.ER.24H PO SCH (21:00)
[2020-01-07] MEDS ORDERED: GABAPENTIN 300 MG CAP PO SCH (21:00)
[2020-01-07] MEDS: MELOXICAM 7.5 MG TAB PO SCH (21:00)
[2020-01-07] MEDS ORDERED: MONTELUKAST 10 MG TAB PO SCH (21:00)
[2020-01-07] MEDS ORDERED: PRAVASTATIN SODIUM 20 MG TAB PO SCH (21:00)
[2020-01-07] MEDS: SODIUM CHLORIDE 0.9% 1,000 ML IV SCH (21:00)
[2020-01-07] MEDS ORDERED: TAMSULOSIN 0.4 MG CAP.ER.24H PO SCH (21:00)
[2020-01-07 21:07] LABS: Glucose,Whole Blood 233 mg/dL (75-99)
[2020-01-07] MEDS: METOPROLOL SUCCINATE (ER) 50 MG TAB.ER.24H PO SCH (22:14)
[2020-01-07] MEDS: INSULIN ASPART (NovoLOG) 100 UNIT/ML VIAL SQ SCH (22:14)
[2020-01-08] MEDS: methylPREDNISolone SOD SUCCI 125 MG/2 ML VIAL IV SCH ×2 (00:12→06:46)
[2020-01-08 06:37] LABS: Glucose,Whole Blood 215 mg/dL (75-99)
[2020-01-08] MEDS: SYMBICORT 160-4.5 MCG INHALER INHALATION SCH (07:47)
[2020-01-08] MEDS: INSULIN ASPART (NovoLOG) 100 UNIT/ML VIAL SQ SCH ×2 (08:21→13:02)
[2020-01-08] MEDS: METOPROLOL SUCCINATE (ER) 50 MG TAB.ER.24H PO SCH (08:28)
[2020-01-08] MEDS: MELOXICAM 7.5 MG TAB PO SCH (08:30)
[2020-01-08] MEDS: SODIUM CHLORIDE 0.9% 1,000 ML IV SCH (08:37)
[2020-01-08] MEDS ORDERED: METOPROLOL SUCCINATE (ER) 50 MG TAB.ER.24H PO SCH (09:00)
[2020-01-08] MEDS ORDERED: AZITHROMYCIN 500 MG TAB PO SCH (09:00)
[2020-01-08] MEDS ORDERED: MELOXICAM 7.5 MG TAB PO SCH (09:00)
[2020-01-08] MEDS ORDERED: LIDOCAINE 5% PATCH TOPICAL SCH (09:00)
[2020-01-08] MEDS ORDERED: LOSARTAN 50 MG TAB PO SCH (09:00)
[2020-01-08] MEDS ORDERED: hydroCHLOROthiazide 25 MG TAB PO SCH (09:00)
[2020-01-08 12:08] LABS: Glucose,Whole Blood 181 mg/dL (75-99)
[2020-01-08 13:20] LABS: Hemoglobin A1C 6.7 % (4.0-6.0)
[2020-01-08] MEDS ORDERED: methylPREDNISolone SOD SUCCI 40 MG/ML 1 ML VIAL IV SCH (16:00)
[2020-01-08] MEDS: IPRATROPIUM-ALBUTEROL 3 ML NEB INHALATION SCH ×2 (16:21)
[2020-01-08 17:19] VITALS: BP 120/72; PULSE 91; RESP 16; TEMP 97.6
--- NOTE | 2020-01-08 19:11 | P.HPIM ---
History of Present Illness H&P Date: 01/08/20 Chief Complaint: Short of breath and wheezing History of presenting complaint: This is a pleasant 59-year-old patient of Dr. Sabrina Gutierrez. Chronic stable medical conditions include BPH,, hypertension, chronic low back pain., follows with ged tutor Dr. Tirado. Patient presents with progressive shortness of breath and wheezing for over 7 days. No fever no chills. Occasional productive cough. Light green in color. Patient was started bronchodilators. Steroids. Feeling better this morning. Decrease in symptoms. Up to the bathroom. Finished on his breakfast. Review of systems: GEN.: Tired EYES: None HEENT: None NECK: None RESPIRATORY: As above CARDIOVASCULAR: None GASTROINTESTINAL: None GENITOURINARY: None MUSCULOSKELETAL: None LYMPHATICS: None HEMATOLOGICAL: None PSYCHIATRY: None NEUROLOGICAL: None Past medical history to include: BPH,, hypertension, COPD, hyperlipidemia, chronic low back pain and radiculopathy Social history: Patient smoked a pack a day for about 20 years stopped about 25 years ago. 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 EYES: Pupils equal. Conjunctiva normal. HEENT: External appearance of nose and ears normal, oral cavity grossly normal. NECK: JVD unable to assess; masses not palpable. HEART: First and second heart sounds are normal; no edema. LUNGS: Respiratory rate increased, diminished breath sounds prolonged expiration and wheezing. ABDOMEN: Soft, nontender, liver spleen not palpable, no masses palpable. PSYCH: Alert and oriented x3; mood and affect slightly anxious. NEUROLOGICAL: Cranial nerves grossly intact; no facial asymmetry, power and sensation grossly intact. LYMPHATICS: No lymph nodes palpable in the axilla and neck INVESTIGATIONS, reviewed in the clinical context: White count 16.8 hemoglobin 14.6 potassium 4.1 creatinine 1.18 glucose 232 lactic acid 3.5 Troponin I less than 0.012, proBNP 57 EKG tracing personally reviewed by me-normal sinus rhythm, poor baseline CT chest and U for PE with contrast-negative for PE and some chronic changes more details and the computed tomography scan. Assessment: -Acute COPD exacerbation, in an ex-smoker -Acute tracheobronchitis -Morbid obesity BMI 41.7 -BPH -Chronic lower back pain with radiculopathy -Essential hypertension Plan: Patient was started on nebulized bronchodilators IV steroids. Home medications and resume. Care was discussed with the patient. Patient is better significantly since admission. Like to go home and then follow up with his ged tutor. See how he does. Encouraged activity. Past Medical History Past Medical History: Asthma, Hyperlipidemia, Hypertension History of Any Multi-Drug Resistant Organisms: None Reported Past Surgical History: Tonsillectomy Additional Past Surgical History / Comment(s): septum surgery, nission procedure on stomach, nerve ablation on back. Additional Past Anesthesia/Blood Transfusion Reaction / Comment(s): reports a difficult time "coming out" of anesthesia Past Psychological History: No Psychological Hx Reported Smoking Status: Former smoker Past Alcohol Use History: None Reported Past Drug Use History: None Reported - Past Family History Father Family Medical History: Myocardial Infarction ([place]) Mother Family Medical History: Cancer Medications and Allergies Home Medications Medication Instructions Recorded Confirmed Type Albuterol Nebulized [Ventolin 2.5 mg INHALATION RT-Q6H PRN 08/13/19 01/07/20 History Nebulized] Albuterol Sulfate [Ventolin HFA] 2 puff INHALATION RT-Q6H PRN 08/13/19 01/07/20 History Cyclobenzaprine [Flexeril] 10 mg PO BID PRN 08/13/19 01/07/20 History Gabapentin [Neurontin] 300 mg PO HS 08/13/19 01/07/20 History Ipratropium Nebulized [Atrovent 0.5 mg INHALATION RT-Q6H PRN 08/13/19 01/07/20 History Nebulized 0.2 MG/ML] Losartan Potassium 100 mg PO DAILY 08/13/19 01/07/20 History Montelukast [Singulair] 10 mg PO HS 08/13/19 01/07/20 History Tamsulosin [Flomax] 0.4 mg PO HS 08/13/19 01/07/20 History Theophylline 24 Hour [Raghavendra-24] 400 mg PO HS 08/13/19 01/07/20 History Xolair Unknown Dose 1 dose SQ Q14D 08/13/19 01/07/20 History hydroCHLOROthiazide [Hydrodiuril] 25 mg PO DAILY 08/13/19 01/07/20 History predniSONE 5 mg PO MOWEFR 08/13/19 01/07/20 History predniSONE 10 mg PO SUTUTHSA 08/13/19 01/07/20 History Budesonide/Formoterol Fumarate 2 puff INHALATION RT-BID 01/07/20 01/07/20 History [Symbicort 160-4.5 Mcg Inhaler] Celecoxib [CeleBREX] 100 mg PO BID 01/07/20 01/07/20 History Lidocaine 5% Patch [Lidoderm 5% 1 patch TOPICAL DAILY 01/07/20 01/07/20 History Patch] Metoprolol Succinate (ER) [Toprol 50 mg PO HS 01/07/20 01/07/20 History XL] Pravastatin Sodium [Pravachol] 10 mg PO HS 01/07/20 01/07/20 History Azithromycin [Zithromax] 500 mg PO DAILY #3 tab 01/08/20 Rx predniSONE 10 mg PO DAILY #30 tab 01/08/20 Rx Allergies Allergy/AdvReac Type Severity Reaction Status Date / Time Penicillins Allergy Rash/Hives Verified 01/07/20 19:17 Physical Exam Vitals: Vital Signs Temp Pulse Pulse Resp BP BP Pulse Ox 01/08/20 03:00 98.0 F 95 20 110/66 91 L 01/07/20 20:13 98 01/07/20 19:57 100 97 01/07/20 19:11 97.7 F 97 18 126/73 95 01/07/20 18:56 89 16 144/89 96 01/07/20 17:47 103 H 16 144/88 93 L 01/07/20 16:13 106 H 01/07/20 15:59 104 H 01/07/20 14:59 24 01/07/20 14:40 98.4 F 117 H 22 99/65 96 Intake and Output 01/07/20 01/08/20 01/08/20 22:59 06:59 14:59 Other: Voiding Method Toilet Toilet # Voids 1 Results CBC & Chem 7: 01/07/20 15:18 01/07/20 15:18 Labs: Abnormal Lab Results - Last 24 Hours (Table) 01/07/20 01/07/20 01/07/20 Range/Units 15:18 15:18 15:18 WBC 16.8 H (3.8-10.6) k/uL Neutrophils # 11.9 H (1.3-7.7) k/uL Eosinophils # 1.1 H (0-0.7) k/uL D-Dimer 1.53 H (<0.60) mg/L FEU BUN 21 H (9-20) mg/dL Glucose 232 H (74-99) mg/dL POC Glucose (mg/dL) (75-99) mg/dL Plasma Lactic Acid Mmoo (0.7-2.0) mmol/L 01/07/20 01/07/20 01/08/20 Range/Units 15:18 21:03 06:35 WBC (3.8-10.6) k/uL Neutrophils # (1.3-7.7) k/uL Eosinophils # (0-0.7) k/uL D-Dimer (<0.60) mg/L FEU BUN (9-20) mg/dL Glucose (74-99) mg/dL POC Glucose (mg/dL) 233 H 215 H (75-99) mg/dL Plasma Lactic Acid Momo 3.5 H* (0.7-2.0) mmol/L Thrombosis Risk Factor Assmnt - Choose All That Apply Any of the Below Risk Factors Present?: Yes Each Factor Represents 1 point: Obesity (BMI >25) Other Risk Factors: Yes Each Risk Factor Represents 2 Points: Age 61-74 years Other congenital or acquired thrombophilia - If yes, enter type in comment: No Thrombosis Risk Factor Assessment Total Risk Factor Score: 3 Thrombosis Risk Factor Assessment Level: Moderate Risk
--- NOTE | 2020-01-08 19:13 | P.DS ---
Providers Date of admission: 01/07/20 18:22 Expected date of discharge: 01/08/20 Attending physician: Storm Wall Primary care physician: Patrick Gutierrez [facility] Course: Chief Complaint: Short of breath and wheezing History of presenting complaint: This is a pleasant 59-year-old patient of Dr. Sabrina Gutierrez. Chronic stable medical conditions include BPH,, hypertension, chronic low back pain., follows with ground intelligence officer Dr. Tirado. Patient presents with progressive shortness of breath and wheezing for over 7 days. No fever no chills. Occasional productive cough. Light green in color. Patient was started bronchodilators. Steroids. Feeling better this morning. Decrease in symptoms. Up to the bathroom. Finished all his breakfast. Treated with bronchodilators and Solu-Medrol. Responded well. Up and about. Symptoms improved. follow up with his ground intelligence officer. Physical examination: VITAL SIGNS: 97.7, 97, 18, 126/73, 95% room air GENERAL: BMI 41.7, sitting at the edge of the bed,, some shortness of breath. EYES: Pupils equal. Conjunctiva normal. HEENT: External appearance of nose and ears normal, oral cavity grossly normal. NECK: JVD unable to assess; masses not palpable. HEART: First and second heart sounds are normal; no edema. LUNGS: Respiratory rate increased, diminished breath sounds prolonged expiration and wheezing. ABDOMEN: Soft, nontender, liver spleen not palpable, no masses palpable. PSYCH: Alert and oriented x3; mood and affect slightly anxious. INVESTIGATIONS, reviewed in the clinical context: White count 16.8 hemoglobin 14.6 potassium 4.1 creatinine 1.18 glucose 232 lactic acid 3.5 Troponin I less than 0.012, proBNP 57 EKG tracing personally reviewed by me-normal sinus rhythm, poor baseline CT chest and U for PE with contrast-negative for PE and some chronic changes more details and the computed tomography scan. Assessment: -Acute COPD exacerbation, in an ex-smoker -Acute tracheobronchitis -Morbid obesity BMI 41.7 -BPH -Chronic lower back pain with radiculopathy -Essential hypertension Disposition: Home Patient Condition at Discharge: Stable Plan - Discharge Summary Discharge Rx Participant: No New Discharge Prescriptions: New Azithromycin [Zithromax] 500 mg PO DAILY #3 tab predniSONE 10 mg PO DAILY #30 tab Continue Cyclobenzaprine [Flexeril] 10 mg PO BID PRN PRN Reason: Muscle Spasm Tamsulosin [Flomax] 0.4 mg PO HS Gabapentin [Neurontin] 300 mg PO HS predniSONE 10 mg PO SUTUTHSA Losartan Potassium 100 mg PO DAILY hydroCHLOROthiazide [Hydrodiuril] 25 mg PO DAILY predniSONE 5 mg PO MOWEFR Ipratropium Nebulized [Atrovent Nebulized 0.2 MG/ML] 0.5 mg INHALATION RT-Q6H PRN PRN Reason: Shortness Of Breath Albuterol Nebulized [Ventolin Nebulized] 2.5 mg INHALATION RT-Q6H PRN PRN Reason: Shortness Of Breath Theophylline 24 Hour [Raghavendra-24] 400 mg PO HS Montelukast [Singulair] 10 mg PO HS Albuterol Sulfate [Ventolin HFA] 2 puff INHALATION RT-Q6H PRN PRN Reason: Shortness Of Breath Xolair Unknown Dose 1 dose SQ Q14D Pravastatin Sodium [Pravachol] 10 mg PO HS Metoprolol Succinate (ER) [Toprol XL] 50 mg PO HS Celecoxib [CeleBREX] 100 mg PO BID Lidocaine 5% Patch [Lidoderm 5% Patch] 1 patch TOPICAL DAILY Budesonide/Formoterol Fumarate [Symbicort 160-4.5 Mcg Inhaler] 2 puff INHALATION RT-BID Discharge Medication List Albuterol Nebulized [Ventolin Nebulized] 2.5 mg INHALATION RT-Q6H PRN 08/13/19 [ History] Albuterol Sulfate [Ventolin HFA] 2 puff INHALATION RT-Q6H PRN 08/13/19 [History] Cyclobenzaprine [Flexeril] 10 mg PO BID PRN 08/13/19 [History] Gabapentin [Neurontin] 300 mg PO HS 08/13/19 [History] Ipratropium Nebulized [Atrovent Nebulized 0.2 MG/ML] 0.5 mg INHALATION RT-Q6H PRN 08/13/19 [History] Losartan Potassium 100 mg PO DAILY 08/13/19 [History] Montelukast [Singulair] 10 mg PO HS 08/13/19 [History] Tamsulosin [Flomax] 0.4 mg PO HS 08/13/19 [History] Theophylline 24 Hour [Raghavendra-24] 400 mg PO HS 08/13/19 [History] Xolair Unknown Dose 1 dose SQ Q14D 08/13/19 [History] hydroCHLOROthiazide [Hydrodiuril] 25 mg PO DAILY 08/13/19 [History] predniSONE 5 mg PO MOWEFR 08/13/19 [History] predniSONE 10 mg PO SUTUTHSA 08/13/19 [History] Budesonide/Formoterol Fumarate [Symbicort 160-4.5 Mcg Inhaler] 2 puff INHALATION RT-BID 01/07/20 [History] Celecoxib [CeleBREX] 100 mg PO BID 01/07/20 [History] Lidocaine 5% Patch [Lidoderm 5% Patch] 1 patch TOPICAL DAILY 01/07/20 [History] Metoprolol Succinate (ER) [Toprol XL] 50 mg PO HS 01/07/20 [History] Pravastatin Sodium [Pravachol] 10 mg PO HS 01/07/20 [History] Azithromycin [Zithromax] 500 mg PO DAILY #3 tab 01/08/20 [Rx] predniSONE 10 mg PO DAILY #30 tab 01/08/20 [Rx] Follow up Appointment(s)/Referral(s): Fanny Alvarez MD [STAFF PHYSICIAN] - 1 Week Patrick Gutierrez DO [Primary Care Provider] - 1-2 days Discharge Disposition: HOME SELF-CARE
== END 2020-01-08 16:57 | disposition home or self-care (01) ==
LOC: EC 14:23 → 1SOBS 18:22
PROVIDERS: ADMIT Hospitalist; ATTEND Hospitalist
DX: J44.1 Chronic obstructive pulmonary disease with (acute) exacerbation (principal); J44.0 Chronic obstructive pulmonary disease with (acute) lower respiratory infection; J20.9 Acute bronchitis, unspecified; J45.901 Unspecified asthma with (acute) exacerbation; E87.2 Acidosis; I10 Essential (primary) hypertension; E78.5 Hyperlipidemia, unspecified; R79.89 Other specified abnormal findings of blood chemistry; N40.0 Benign prostatic hyperplasia without lower urinary tract symptoms; G89.29 Other chronic pain; M54.5 Low back pain; M54.16 Radiculopathy, lumbar region; Z68.41 Body mass index [BMI] 40.0-44.9, adult; E66.01 Morbid (severe) obesity due to excess calories; Z79.51 Long term (current) use of inhaled steroids; Z79.1 Long term (current) use of non-steroidal anti-inflammatories (NSAID); Z79.52 Long term (current) use of systemic steroids; Z79.899 Other long term (current) drug therapy; Z88.0 Allergy status to penicillin; Z87.01 Personal history of pneumonia (recurrent); Z87.891 Personal history of nicotine dependence; Z80.9 Family history of malignant neoplasm, unspecified; Z82.49 Family history of ischemic heart disease and other diseases of the circulatory system
CPT/HCPCS: 96376; 96361; 96374; 96375; 99285; 36415; 94640 ×3; 94760; 93005; 85379; 83880; 80053; 83605; 83735; 84484; 85025; 85610; 85730; 87040; 83036; 71275; G0378 ×2; U0003; J2920; J2930 ×2; J0696; Q9967

== ENCOUNTER → 2020-02-02 | Outpatient (CLI) | payer MEDICARE ==
--- NOTE | 2020-02-02 17:02 | ECHOF ---
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 This was a technically adequate study. The left ventricular size is normal. There is moderate concentric left ventricular hypertrophy. O verall left ventricular systolic function is normal with, an EF between 60 - 65 %. The right ventricle is mildly enlarged. Normal LA size by volume 22+/-6 ml/m2. The right atrium is normal in size. Interatrial and interventricular septum intact. The aortic valve is trileaflet and appears structurally normal. The mitral valve is normal. Mild tricuspid regurgitation present. There is mild pulmonary hypertension. The right ventricular systolic pressure, as measured by Doppler, is 36.87mmHg. The pulmonic valve was not well visualized. The aortic root is dilated measuring 3.8cm. IVC Not well visulized. There is no pericardial effusion. CONCLUSIONS -------- 1. The left ventricular size is normal. 2. There is moderate concentric left ventricular hypertrophy. 3. Overall left ventricular systolic function is normal with, an EF between 60 - 65 %. 4. The right ventricle is mildly enlarged. 5. Mild tricuspid regurgitation present. 6. There is mild pulmonary hypertension. 7. The right ventricular systolic pressure, as measured by Doppler, is 36.87mmHg. 8. The aortic root is dilated measuring 3.8cm. 9. There is no pericardial effusion. CREDIT OR LOANS OFFICER: Marina Lazaro RDCS
== END | disposition home or self-care (01) ==
LOC: RADECHMAIN 11:33
PROVIDERS: ATTEND Family Medicine
DX: I07.1 Rheumatic tricuspid insufficiency (principal); I27.20 Pulmonary hypertension, unspecified
CPT/HCPCS: 93306

== ENCOUNTER 2020-07-18 12:54 | Emergency (ER) | payer MEDICARE, OTHER ==
[2020-07-18 12:59] VITALS: TEMP 97.8
[2020-07-18] MEDS ORDERED: dexAMETHasone 4 MG TAB PO STA (13:15)
[2020-07-18] MEDS ORDERED: IPRATROPIUM-ALBUTEROL 3 ML NEB INHALATION STA (13:15)
--- NOTE | 2020-07-18 13:17 | ED ---
General Adult HPI - General Chief complaint: Shortness of Breath Stated complaint: asthma Time Seen by Provider: 07/18/20 13:02 Source: patient Mode of arrival: ambulatory Limitations: no limitations - History of Present Illness Initial comments: Dictation was produced using [employer] dictation software. please excuse any grammatical, word or spelling errors. This patient was cared for during a federal and state declared state of emergency secondary to Covid 19 Chief Complaint: 59-year-old male presents to the emergency department for dyspnea. History of Present Illness: 59-year-old nice past medical history of asthma, dyslipidemia and hypertension. For the last week or so patient has been having sinus symptoms. Over the last 3-4 days she's been having worsening shortness of breath cough congestion. Patient is a extensive history of asthma. 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 Alvarez. Patient has any fever or chills. States he does have some mild rhinorrhea. Prior to arrival he was tested for occult at the urgent care which found to be negative. He has no pain complaints. No lower extremity swelling. The ROS documented in this emergency department record has been reviewed and confirmed by me. Those systems with pertinent positive or negative responses have been documented in the HPI. All other systems are other negative and/or noncontributory. PHYSICAL EXAM: General Impression: Alert and oriented x3, not in acute distress HEENT: Normocephalic atraumatic, extra-ocular movements intact, pupils equal and reactive to light bilaterally, mucous membranes moist. Cardiovascular: Heart regular rate and rhythm Chest: Able to complete full sentences, no retractions, no tachypnea, diffuse wheezing with auscultation to the lungs Abdomen: abdomen soft, non-tender, non-distended, no organomegaly Musculoskeletal: Pulses present and equal in all extremities, no peripheral edema Motor: no focal deficits noted Neurological: CN II-XII grossly intact, no focal motor or sensory deficits noted Skin: Intact with no visualized rashes Psych: Normal affect and mood ED course: 59-year-old male who is well-appearing presents with asthma exacerbation. Vital signs upon arrival are within acceptable limits. Patient's old. He does have wheezing on auscultation of lungs bilaterally. Chest x-ray shows suspicion of some basilar areas of atelectasis. No definite acute process. Laboratory evaluation shows mild leukocytosis of 17.4. Patient has baseline elevated leukocytosis. Metabolic panel is otherwise unremarkable. EKG interpretation: Ventricular rate 96, normal sinus rhythm, TX interval 152, QRS 90, QTc 434. No TX prolongation, no QTC prolongation, no ST or T-wave changes noted. EKG compared to 01/07/2020 showing no changes. Overall, this EKG is unremarkable - Related Data Home Medications Medication Instructions Recorded Confirmed Albuterol Nebulized [Ventolin 2.5 mg INHALATION RT-Q6H PRN 08/13/19 01/07/20 Nebulized] Albuterol Sulfate [Ventolin HFA] 2 puff INHALATION RT-Q6H PRN 08/13/19 01/07/20 Cyclobenzaprine [Flexeril] 10 mg PO BID PRN 08/13/19 01/07/20 Gabapentin [Neurontin] 300 mg PO HS 08/13/19 01/07/20 Ipratropium Nebulized [Atrovent 0.5 mg INHALATION RT-Q6H PRN 08/13/19 01/07/20 Nebulized 0.2 MG/ML] Losartan Potassium 100 mg PO DAILY 08/13/19 01/07/20 Montelukast [Singulair] 10 mg PO HS 08/13/19 01/07/20 Tamsulosin [Flomax] 0.4 mg PO HS 08/13/19 01/07/20 Theophylline 24 Hour [Raghavendra-24] 400 mg PO HS 08/13/19 01/07/20 Xolair Unknown Dose 1 dose SQ Q14D 08/13/19 01/07/20 hydroCHLOROthiazide [Hydrodiuril] 25 mg PO DAILY 08/13/19 01/07/20 predniSONE 5 mg PO MOWEFR 08/13/19 01/07/20 predniSONE 10 mg PO SUTUTHSA 08/13/19 01/07/20 Budesonide/Formoterol Fumarate 2 puff INHALATION RT-BID 01/07/20 01/07/20 [Symbicort 160-4.5 Mcg Inhaler] Celecoxib [CeleBREX] 100 mg PO BID 01/07/20 01/07/20 Lidocaine 5% Patch [Lidoderm 5% 1 patch TOPICAL DAILY 01/07/20 01/07/20 Patch] Metoprolol Succinate (ER) [Toprol 50 mg PO HS 01/07/20 01/07/20 XL] Pravastatin Sodium [Pravachol] 10 mg PO HS 01/07/20 01/07/20 Previous Rx's Medication Instructions Recorded Azithromycin [Zithromax] 500 mg PO DAILY #3 tab 01/08/20 predniSONE 10 mg PO DAILY #30 tab 01/08/20 Azithromycin [Zithromax Z-pack] 0 mg PO DIRECTED #6 tab 07/18/20 Allergies Allergy/AdvReac Type Severity Reaction Status Date / Time Penicillins Allergy Rash/Hives Verified 07/18/20 12:59 Review of Systems ROS Statement: Those systems with pertinent positive or pertinent negative responses have been documented in the HPI. ROS Other: All systems not noted in ROS Statement are negative. Past Medical History Past Medical History: Asthma, Hyperlipidemia, Hypertension History of Any Multi-Drug Resistant Organisms: None Reported Past Surgical History: Tonsillectomy Additional Past Surgical History / Comment(s): septum surgery, nission procedure on stomach, nerve ablation on back. Additional Past Anesthesia/Blood Transfusion Reaction / Comment(s): reports a difficult time "coming out" of anesthesia Past Psychological History: No Psychological Hx Reported Smoking Status: Former smoker Past Alcohol Use History: None Reported Past Drug Use History: None Reported - Past Family History Father Family Medical History: Myocardial Infarction ([place]) Mother Family Medical History: Cancer General Exam Limitations: no limitations Course Vital Signs 07/18/20 07/18/20 07/18/20 12:56 13:24 13:44 Temperature 97.8 F Pulse Rate 105 H 98 Respiratory 24 16 20 Rate Blood Pressure 169/107 150/87 O2 Sat by Pulse 95 94 L Oximetry 07/18/20 07/18/20 14:03 14:15 Temperature Pulse Rate 97 97 Respiratory Rate Blood Pressure O2 Sat by Pulse Oximetry Medical Decision Making - Lab Data Result diagrams: 07/18/20 13:38 07/18/20 13:38 Lab Results 07/18/20 07/18/20 07/18/20 Range/Units 13:38 13:38 13:38 WBC 17.4 H (3.8-10.6) k/uL RBC 4.83 (4.30-5.90) m/uL Hgb 15.0 (13.0-17.5) gm/dL Hct 45.1 (39.0-53.0) % MCV 93.5 (80.0-100.0) fL MCH 31.0 (25.0-35.0) pg MCHC 33.2 (31.0-37.0) g/dL RDW 13.3 (11.5-15.5) % Plt Count 273 (150-450) k/uL MPV 8.1 Neutrophils % 76 % Lymphocytes % 11 % Monocytes % 6 % Eosinophils % 7 % Basophils % 0 % Neutrophils # 13.2 H (1.3-7.7) k/uL Lymphocytes # 1.9 (1.0-4.8) k/uL Monocytes # 1.0 (0-1.0) k/uL Eosinophils # 1.1 H (0-0.7) k/uL Basophils # 0.1 (0-0.2) k/uL Sodium 140 (137-145) mmol/L Potassium 3.8 (3.5-5.1) mmol/L Chloride 103 (98-107) mmol/L Carbon Dioxide 28 (22-30) mmol/L Anion Gap 9 mmol/L BUN 24 H (9-20) mg/dL Creatinine 1.21 (0.66-1.25) mg/dL Est GFR (CKD-EPI)AfAm 75 (>60 ml/min/1.73 sqM) Est GFR (CKD-EPI)NonAf 64 (>60 ml/min/1.73 sqM) Glucose 144 H (74-99) mg/dL Calcium 9.7 (8.4-10.2) mg/dL NT-Pro-B Natriuret Pep 63 pg/mL Disposition Clinical Impression: COPD exacerbation Disposition: HOME SELF-CARE Condition: Good Instructions (If sedation given, give patient instructions): COPD (Chronic Obstructive Pulmonary Disease) (ED) Additional Instructions: Please give yourself Albuterol treatments every 4-6 hours for the next 3 days. Follow-up with your flame gouger. Seek medical attention if you develop symp toms of fever, worsening dyspnea or general malaise. Prescriptions: Azithromycin [Zithromax Z-pack] 0 mg PO DIRECTED #6 tab Is patient prescribed a controlled substance at d/c from ED?: No Referrals: Fanny Alvarez MD [STAFF PHYSICIAN] - 1-2 days Time of Disposition: 14:53
[2020-07-18 14:01] LABS: Basophils # (A) 0.1 k/uL (0-0.2); Basophils % (A) 0 %; Eosinophils # (A) 1.1 k/uL (0-0.7); Eosinophils % (A) 7 %; HCT 45.1 % (39.0-53.0); Lymphocytes # (A) 1.9 k/uL (1.0-4.8); Lymphocytes % (A) 11 %; MCHC 33.2 g/dL (31.0-37.0); MCV 93.5 fL (80.0-100.0); Mean Platelet Volume 8.1; Monocytes % (A) 6 %; Neutrophils # (A) 13.2 k/uL (1.3-7.7); Neutrophils % (A) 76 %; Platelet Count 273 k/uL (150-450); RBC 4.83 m/uL (4.30-5.90); RDW 13.3 % (11.5-15.5); WBC 17.4 k/uL (3.8-10.6)
--- NOTE | 2020-07-18 14:08 | XR ---
EXAMINATION TYPE: XR chest 1V portable DATE OF EXAM: 07/18/2020 Comparison: 08/16/2019 Clinical History: 59 year-old male shortness of breath, dyspnea Findings: Large patient body habitus resulting in hazy bilateral opacities. Left base in particular is underpen etrated and not well assessed. Heart upper limits of normal in size. Suspect additional stringy areas of atelectasis in the lower lungs. Upper and mid lungs appear clear. Impression: Limited exam due to large patient body habitus. The left base in particular is underpenetrated. Suspe ct some basilar areas of atelectasis. No definite acute process.
[2020-07-18 14:10] LABS: Calcium 9.7 mg/dL (8.4-10.2); Potassium 3.8 mmol/L (3.5-5.1)
[2020-07-18] MEDS ORDERED: AZITHROMYCIN 500 MG TAB PO STA (14:52)
[2020-07-18 15:06] VITALS: BP 141/87; PULSE 83; RESP 18
== END 2020-07-18 15:10 | disposition home or self-care (01) ==
LOC: EC 12:54
DX: J44.1 Chronic obstructive pulmonary disease with (acute) exacerbation (principal); D72.829 Elevated white blood cell count, unspecified; E78.5 Hyperlipidemia, unspecified; I10 Essential (primary) hypertension; Z79.51 Long term (current) use of inhaled steroids; Z79.899 Other long term (current) drug therapy; Z79.52 Long term (current) use of systemic steroids; Z87.891 Personal history of nicotine dependence; Z88.0 Allergy status to penicillin
CPT/HCPCS: 36415; 94640; 93005; 83880; 80048; 84484; 85025; 71045; 99285; J8540

== ENCOUNTER 2021-01-18 07:36 | Day surgery (SDC) | payer MEDICARE, OTHER ==
[2021-01-16 13:27] VITALS: BMI 41.1
[~2021-01-18 07:36] MED LIST: LACTATED RINGERS 1,000 ML IV SCH; LIDOCAINE 1% (10MG/ML) FOR IV START INTRADERMA PRN
[2021-01-18 08:26] LABS: Glucose,Whole Blood 139 mg/dL (75-99)
[2021-01-18] MEDS ORDERED: PROPOFOL 10 MG/ML 20 ML VIAL IV ONE (08:27)
[2021-01-18 08:45] VITALS: TEMP 98.2
--- NOTE | 2021-01-18 09:13 | P.PCN ---
Date of Procedure: 01/18/21 Procedure(s) Performed: BRIEF HISTORY: Patient is a 60-year-old pleasant white male scheduled for an elective colonoscopy as a part of screening for colorectal neoplasia. His last colonoscopy was 5 years ago. PROCEDURE PERFORMED: Colonoscopy. PREOPERATIVE DIAGNOSIS: Screening for colon cancer. IV sedation per Anesthesia. PROCEDURE: After informed consent was obtained, the patient, was brought into the endoscopy unit. IV sedation was administered by Anesthesia under continuous monitoring. Digital rectal examination was normal. Initially the Olympus CF-160 flexible video colonoscope was then inserted in the rectum, gradually advanced into the cecum with mild to moderate difficulty. Colon was very tortuous and redundant. Careful examination was performed as the scope was gradually being withdrawn. Ileocecal valve and the appendiceal orifice were visualized and appeared normal. Prep was poor and several areas of the colon. Thorough irrigation was performed. Visualized portions of the mucosa of the cecum, ascending colon, transverse colon, descending colon, sigmoid colon, and rectum appeared normal. Moderate left-sided diverticulosis seen. Retroflexion was performed in the rectum and no lesions were seen. The patient tolerated the procedure well. IMPRESSION: Normal-appearing colon from rectum to cecum with no evidence of colorectal neoplasia Somewhat poor prep Moderate sigmoid diverticulosis. RECOMMENDATIONS: Findings of this examination were discussed with the patient as well as his family. He was advised to be a high-fiber diet and take fiber supplements a regular basis. He can have a repeat screening colonoscopy in 5 years because of the poor prep..
[2021-01-18 09:17] VITALS: RESP 16
[2021-01-18 09:35] VITALS: BP 103/52; PULSE 81
== END 2021-01-18 10:06 | disposition home or self-care (01) ==
LOC: ORWHC2ENDO 07:36
PROVIDERS: ATTEND Internal Medicine Gastroenterology
DX: Z12.11 Encounter for screening for malignant neoplasm of colon (principal); K57.90 Diverticulosis of intestine, part unspecified, without perforation or abscess without bleeding; I10 Essential (primary) hypertension; J45.909 Unspecified asthma, uncomplicated; K21.9 Gastro-esophageal reflux disease without esophagitis; M19.90 Unspecified osteoarthritis, unspecified site; Z88.0 Allergy status to penicillin; E11.9 Type 2 diabetes mellitus without complications; K59.00 Constipation, unspecified; Z79.52 Long term (current) use of systemic steroids
CPT/HCPCS: J2704; G0121; 45378

== ENCOUNTER → 2021-06-21 | Outpatient (CLI) | payer OTHER ==
--- NOTE | 2021-06-21 15:43 | CONS ---
CONSULTATION DATE OF SERVICE: 06/21/2021 This 60-year-old gentleman has been evaluated in [facility] for possible obstructive sleep apnea-hypopnea syndrome. HISTORY OF PRESENT ILLNESS/SLEEP-WAKE EVALUATION: The patient usually goes to bed about 9 or 9:30 and watches TV for about half an hour. Then he sleeps until 8 or 9 in the morning. He describes having problems with falling asleep. Usually he sleeps on the side position. He does snore, and he wakes up from sleep 3 times with nocturia. No history of hypnagogic hallucinations, sleep paralysis or cataplexy. During the day, he may take a nap around 3 or 4 p.m. Jordan Sleepiness Scale, though, is in normal range at 4. PAST MEDICAL HISTORY: Patient recently was found to have atrial fibrillation and is preparing for ablation procedure. Past medical history is positive for asthma, osteoporosis, diabetes mellitus. PAST SURGICAL HISTORY: Surgery for nasal septum deviation, Sharon fundoplication. MEDICATIONS: Albuterol, ipratropium bromide, Neurontin, losartan, Celebrex, cyclobenzaprine, Eliquis. SOCIAL HISTORY: Quit smoking and using alcohol 27 years ago. FAMILY HISTORY: Heart problems. REVIEW OF SYSTEMS: Episodes of palpitations, awakenings from sleep, snoring. No fevers. No double vision. No recent chest pain. No shortness of breath. No abdominal pain. No bleeding episodes. No blood in the urine. No seizure episodes. PHYSICAL EXAMINATION: GENERAL: Pleasant gentleman without distress. VITAL SIGNS: BP 131/91, HR 92, RR 18, height 5 feet 11-1/2 inches, weight 317.8 pounds, body mass index 43.5, temperature 97.5, oxygen saturation at room air 98%. HEENT: PERRLA, EOMI, evaluation of oropharynx showed tongue protrudes midline. Low position of soft palate; Mallampati III. NECK: Supple, no JVD. Thyroid is not palpable. Neck is wide; 18-1/2 inches in circumference. LUNGS: Clear to percussion and to auscultation. Good air exchange. No wheezing or rhonchi. HEART: S1, S2. Irregularly irregular. ABDOMEN: Obese. EXTREMITIES: No clubbing or cyanosis. JACKHAMMER OPERATOR: Awake, alert, and oriented X3. Cranial nerves 2 to 7 intact. There is no fasciculation or atrophy. noted. No focal deficits observed. IMPRESSION: 1. Snoring, multiple awakenings from sleep with nocturia, low position of soft palate, Mallampati III, wide neck, 18-1/2 inches in circumference; obstructive sleep apnea- hypopnea syndrome. 2. Atrial fibrillation. Patient is preparing for ablation procedure. 3. Asthma. 4. Diabetes mellitus. 5. History of osteoporosis. 6. Status post nasal septal nasal surgery for nasal septum deviation. 7. Status post Sharon fundoplication. 8. History of acid reflux before surgery; no significant acid reflux recently. PLAN: 1. Polysomnography for evaluation of patient's breathing during sleep. 2. CPAP/BiPAP titration if sleep study confirms obstructive sleep apnea-hypopnea syndrome. 3. Preferable position during sleep on the side. 4. No driving if patient feels any sleepiness. 5. I will see patient for follow up visit to explain results of testing and following plan. Thank you very much for referring this patient for consultation. Sincerely, Woody Heart MD, PhD, FAASM Diplomat of [employer] Sleep Medicine Board of [employer] [facility] [place] [facility] [place] MMODL / IJN: [id number] /
== END ==
LOC: SLEEP 13:44
PROVIDERS: ATTEND Internal Medicine
DX: G47.33 Obstructive sleep apnea (adult) (pediatric) (principal); R35.1 Nocturia; I48.91 Unspecified atrial fibrillation; J45.909 Unspecified asthma, uncomplicated; E11.9 Type 2 diabetes mellitus without complications; Z87.39 Personal history of other diseases of the musculoskeletal system and connective tissue; Z98.890 Other specified postprocedural states; Z87.19 Personal history of other diseases of the digestive system; Z87.891 Personal history of nicotine dependence; Z79.01 Long term (current) use of anticoagulants; Z88.0 Allergy status to penicillin
CPT/HCPCS: 99211

== ENCOUNTER 2021-11-06 09:30 | Day surgery (SDC) | payer OTHER ==
[2021-11-02 13:57] VITALS: BMI 39.9
[~2021-11-06 09:30] MED LIST changes: +DEXAMETHASONE SOD PHOSPHATE 4 MG/ML 1 ML VIAL IV ONE; -LACTATED RINGERS 1,000 ML IV SCH; +ONDANSETRON 4 MG/2 ML VIAL IVP ONE
[2021-11-06] MEDS ORDERED: SODIUM CHLORIDE 0.9% 1,000 ML IV ONE (09:39)
[2021-11-06 10:01] LABS: Glucose,Whole Blood 120 mg/dL (75-99)
[2021-11-06 10:20] LABS: Basophils % (A) 0 %; Eosinophils # (A) 0.6 k/uL (0-0.7); Eosinophils % (A) 4 %; HCT 46.7 % (39.0-53.0); HGB 14.7 gm/dL (13.0-17.5); Lymphocytes # (A) 2.1 k/uL (1.0-4.8); Lymphocytes % (A) 12 %; MCH 30.7 pg (25.0-35.0); MCHC 31.5 g/dL (31.0-37.0); MCV 97.5 fL (80.0-100.0); Mean Platelet Volume 7.8; Monocytes # (A) 0.8 k/uL (0-1.0); Monocytes % (A) 5 %; Neutrophils % (A) 78 %; Platelet Count 246 k/uL (150-450); RBC 4.79 m/uL (4.30-5.90); RDW 14.1 % (11.5-15.5); WBC 16.7 k/uL (3.8-10.6)
[2021-11-06 10:31] LABS: Potassium 4.6 mmol/L (3.5-5.1)
[2021-11-06] MEDS ORDERED: SUCCINYLCHOLINE CHLORIDE VIAL 200 MG/10 ML VIAL IV ONE (11:20)
[2021-11-06] MEDS ORDERED: ISOPROTERENOL 250 MCG/1.25 ML SYR IV ONE (11:20)
[2021-11-06] MEDS ORDERED: LIDOCAINE 2% INJ 20 MG/ML (2 ML VIAL) ONE (11:20)
[2021-11-06] MEDS ORDERED: HEPARIN SODIUM,PORCINE 10,000 UNIT/ML 1 ML VIAL ONE (11:20)
[2021-11-06] MEDS ORDERED: fentaNYL (PF) 50 MCG/ML 2 ML AMP ONE (11:20)
[2021-11-06] MEDS ORDERED: PROPOFOL 10 MG/ML 20 ML VIAL IV ONE (11:20)
[2021-11-06] MEDS ORDERED: MIDAZOLAM 2 MG/2 ML VIAL ONE (11:20)
[2021-11-06] MEDS ORDERED: PHENYLEPHRINE-0.9% NACL SYG 1,000 MCG/10 ML SYRINGE ONE (11:20)
[2021-11-06] MEDS ORDERED: LIDOCAINE 1% INJ 10MG/ML (20 ML MDV) SQ ONE (12:07)
[2021-11-06] MEDS ORDERED: LIDOCAINE 1% INJ 10MG/ML (30 ML VIAL-PF) SQ ONE ×2 (12:07)
[2021-11-06] MEDS ORDERED: HEPARIN SOD,PORK IN 0.45% NACL 25,000 UNIT in 0.45% NACL 1 250ML.BAG IV ONE (12:43)
[2021-11-06] MEDS ORDERED: IOPAMIDOL-370 100ML BTL INJ ONE (14:27)
[2021-11-06] MEDS ORDERED: ACETAMINOPHEN TAB 325 MG TAB PO PRN (14:46)
[2021-11-06] MEDS ORDERED: ACETAMINOPHEN IV (For NPO) 1,000 MG in EMPTY BAG 1 BAG IVPB ONE (15:00)
[2021-11-06] MEDS ORDERED: predniSONE 5 MG TAB PO SCH (15:00)
--- NOTE | 2021-11-06 15:02 | P.HPCAR ---
History of Present Illness This is Dr. Messina dictating an H/P on this patient The patient was interviewed and examined IMPRESSION / ASSESSMENT: Paroxysmal atrial fibrillation, symptomatic Severe COPD with bilateral rhonchi and baseline on steroids Morbid obesity Hypertension on losartan PLAN: Pulmonary vein isolation/A. fib ablation Stress dose steroid HPI Patient denies any chest discomfort palpitations no undue shortness of breath He is not wheezing no respiratory distress No chest pain ROS: No fever chills or rigors, no cough, phlegm or expectoration, no nausea, vomiting or diarrhea, no hematuria, dysuria, no musculoskeletal complaints, no strokes or seizures, no skin lesions. EXAMINATION: Bilateral rhonchi over lung torre but this is his baseline Normal heart sounds Increase abdominal girth Morbid obesity BMI 41 No respiratory distress Afebrile 96.9F pulse rate in the 80s, blood pressure 142/81 mmHg REVIEW OF LABS, ECG & MEDICAL DATA White count 16.7 thousand, patient is on steroids Hemoglobin 14.7 Sodium 141 potassium 4.6 BUN 26 and creatinine 1.2 Patient is on daily prednisone, he also anticoagulation, ELIQUIS 5 mg twice daily Physical Exam Vitals: Vital Signs Temp Pulse Pulse Resp BP Pulse Ox 11/06/21 14:53 96.9 F L 79 16 142/81 100 11/06/21 10:00 98.7 F 91 18 184/101 97 Intake and Output 11/06/21 11/06/21 11/06/21 06:59 14:59 22:59 Intake Total 842 Balance 842 Intake: IV 842 Other: Weight 144.6 kg Past Medical History Past Medical History: Atrial Fibrillation, Asthma, Diabetes Mellitus, GERD/Reflux, Hypertension, Osteoarthritis (OA) Additional Past Medical History / Comment(s): environmental allergies, back pain, frequent urination., states aortic valve enlarged. History of Any Multi-Drug Resistant Organisms: None Reported Past Surgical History: Tonsillectomy Additional Past Surgical History / Comment(s): Deviated Septum, Sharon Fundiplication, nerve ablation on back. , colonoscopy, Past Anesthesia/Blood Transfusion Reactions: Previous Problems w/ Anesthesia Additional Past Anesthesia/Blood Transfusion Reaction / Comment(s): difficult time "coming out" of anesthesia-states he was told due to asthma Smoking Status: Former smoker - Past Family History Father Family Medical History: Myocardial Infarction (MO) Mother Family Medical History: Cancer Physical Examination Vital Signs Temp Pulse Pulse Resp BP Pulse Ox 11/06/21 14:53 96.9 F L 79 16 142/81 100 11/06/21 10:00 98.7 F 91 18 184/101 97 Intake and Output 11/06/21 11/06/21 11/06/21 06:59 14:59 22:59 Intake Total 842 Balance 842 Intake: IV 842 Other: Weight 144.6 kg Results 11/06/21 10:12 11/06/21 10:12 CBC 11/06/21 Range/Units 10:12 WBC 16.7 H (3.8-10.6) k/uL RBC 4.79 (4.30-5.90) m/uL Hgb 14.7 (13.0-17.5) gm/dL Hct 46.7 (39.0-53.0) % Plt Count 246 (150-450) k/uL Comprehensive Metabolic Panel 11/06/21 Range/Units 10:12 Sodium 141 (137-145) mmol/L Potassium 4.6 (3.5-5.1) mmol/L Chloride 105 (98-107) mmol/L Carbon Dioxide 27 (22-30) mmol/L BUN 26 H (9-20) mg/dL Creatinine 1.19 (0.66-1.25) mg/dL Glucose 129 H (74-99) mg/dL Calcium 9.0 (8.4-10.2) mg/dL Current Medications Generic Name Dose Route Start Last Admin Trade Name Freq PRN Reason Stop Dose Admin Acetaminophen 650 mg 11/06/21 14:46 Acetaminophen Tab 325 Mg Tab PO 12/06/21 14:47 Q6HR PRN Mild Pain Albuterol/Ipratropium 3 ml 11/06/21 14:45 Ipratropium-Albuterol 3 Ml Neb INHALATION 12/06/21 14:46 Q6H PRN Shortness of breath Apixaban 5 mg 11/06/21 21:00 Apixaban 5 Mg Tab PO 12/06/21 21:01 BID NELI Protocol Cyclobenzaprine HCl 10 mg 11/06/21 21:00 Cyclobenzaprine 10 Mg Tab PO 12/06/21 21:01 BID [facility] Fluticasone Propionate 2 spray 11/07/21 09:00 Fluticasone 50mcg/[place] Nasal 16gm EA NOSTRIL 12/07/21 09:01 DAILY NELI Gabapentin 300 mg 11/06/21 16:00 Gabapentin 300 Mg Cap PO 12/06/21 16:01 TID NELI Sodium Chloride 1,000 mls @ 50 mls/hr 11/06/21 05:38 Saline 0.9% IV 12/06/21 05:39 .Q20H NELI Lactated Ringer's 1,000 mls @ 20 mls/hr 11/06/21 05:38 Lactated Ringers IV 12/06/21 05:39 .Q24H NELI Acetaminophen 1,000 mg/ IV 100 mls @ 400 mls/hr 11/06/21 14:46 Solution IVPB 11/06/21 15:00 ONCE ONE Lidocaine HCl 0.1 ml 11/06/21 05:38 Lidocaine 1% (10mg/Ml) For Iv Start INTRADERMA 12/06/21 05:39 PER PROTOCOL PRN IV Start Losartan Potassium 100 mg 11/07/21 09:00 Losartan 50 Mg Tab PO 12/07/21 09:01 DAILY [facility] Metformin HCl 1,000 mg 11/06/21 21:00 Metformin 500 Mg Tab PO 12/06/21 21:01 HS [facility] Metoprolol Succinate 50 mg 11/06/21 21:00 Metoprolol Succinate (Er) 50 Mg Tab.Er.24h PO 12/06/21 21:01 HS [facility] Montelukast Sodium 10 mg 11/06/21 21:00 Montelukast 10 Mg Tab PO 12/06/21 21:01 HS [facility] Prednisone 5 mg 11/06/21 15:00 Prednisone 5 Mg Tab PO 12/06/21 15:01 MOWEFR NELI Prednisone 10 mg 11/07/21 09:00 Prednisone 5 Mg Tab PO 12/07/21 09:01 SUTUTHSA [facility] Sodium Chloride 12 ml 11/06/21 14:46 Sodium Chloride 0.9% Flush 10 Ml Syringe IV 12/06/21 14:47 Q12HR PRN Line Flush Intake and Output 11/06/21 11/06/21 11/06/21 06:59 14:59 22:59 Intake Total 842 Balance 842 Intake: IV 842 Other: Weight 144.6 kg Patient Weight 11/07/21 06:59 Weight 144.6 kg 11/06/21 10:12 11/06/21 10:12
[2021-11-06] MEDS ORDERED: ALBUTEROL NEBULIZED 2.5 MG/3 ML INHALATION ONE (15:08)
--- NOTE | 2021-11-06 15:13 | P.EPPROC ---
- EP Procedure Note Electrophysiology Procedure Note: PROCEDURE A. fib ablation/PVI DIAGNOSIS Paroxysmal Atrial fibrillation, symptomatic, refractory to therapy RESULT No left atrial appendage mass seen on intracardiac echo Successful A. fib ablation/pulmonary vein isolation of all veins using cryo- ablation Complete entrance block in all 4 veins confirmed No evidence for phrenic nerve injury Esophageal deflection YES, right-sided esophagus Electrical cardioversion with a synchronized shock across the chest YES / NO PROCEDURE DETAILS Patient was brought to the EP lab in a fasting state after obtaining written informed consent. Procedure performed under general anesthesia Esophagus was intubated. Esophageal temperature monitoring with circa catheter. Esophageal deflection with an endoscope to avoid hypothermia of the esophagus. After initial muscle relaxant use, muscle relaxants were not given thereafter in order to assess phrenic nerve during procedure. Patient prepped and draped as per protocol Cryo ablation-set up with standard preparation of the cryoablation tools done. Femoral Venous access obtained on the right and left groins and sheaths placed Diagnostic catheters for the high right atrium, phrenic nerve stimulation and pacing, His bundle, coronary sinus placed Intracardiac echo catheter placed. Long sheath placed in the right atrium Left and right transseptal catheterization performed under intracardiac echo guidance. Intravenous heparin with aCT above 300 Later, catheter positioning and balloon positioning in the left atrium and pulmonary veins, under intracardiac echo guidance Diagnostic EP study with coronary sinus pacing and recording Baseline measurements: Sinus cycle length 769 ms, QRS 92, QT 414 and NH interval 174 ms AH 48 ms and HV interval 50 ms Burst stimulation from the high right atrium, 400 ms down to 300 ms No inducible atrial fibrillation the end of the procedure line high dose Isuprel used to the end of the procedure. No inducible atrial fibrillation AV node Wenckebach block on Isuprel was 290 ms Transseptal catheterization performed RA pressure 19/14/17 LA pressure 30/10 Transseptal catheterization performed with standard sheath. The cryoablation sheath was then placed with an over the wire exchange without any acute complications. The cryoablation balloon was placed in the office of each pulmonary vein and all 4 pulmonary veins were isolated. IV dye was injected to confirm occlusion. Goal: achieve complete occlusion of the pulmonary vein, achieve -30 degrees C at 30 seconds and achieve -40 degrees C at 60 seconds and a time to effect of less than 60 seconds. If not, the balloon was repositioned to obtain this result After completion of Cryoblation with durations from 180-240 seconds, entrance block was confirmed with the Attain circular catheter in a roving fashion around the antrum of the pulmonary veins Phrenic nerve pacing was performed from the SVC, right innominate vein area and diaphragm voltage was monitored. Diaphragmatic contractions were also monitored manually for strength of contraction. There was a left middle vein was isolated separate from the left superior and the left inferior veins for 3 minutes with complete isolation There was a separate right middle vein was also isolated separately from the right superior the right inferior veins Once this was isolated, the right superior vein was also completely isolated. While ablating the right superior vein partial success was obtained and therefore the right middle vein was also separately isolated resulting in complete isolation along the right side At the end of the procedure the Achieve catheter was once again used to check for entrance block Phrenic nerve stimulation was performed to confirm diaphragmatic stimulation the end of the procedure Cine fluoroscopy was performed at the very end of the procedure to confirm movement of both diaphragms with inspiration and expiration At the end of the procedure the patient was extubated Venous sheaths were removed and hemostasis assured with a closure device PROCEDURES PERFORMED Diagnostic EP study CS pacing and recording Left and right transseptal catheterization Catheter the mapping of the tachycardia Intracardiac echocardiography Pulmonary vein isolation with transseptal and comprehensive EPS, [id number] Drug infusion, [id number] Increase procedure services Patient had a left middle cardiac vein which is separately isolated He had a right middle vein/or a large branch of the right superior vein which needed to be ICD separately
--- NOTE | 2021-11-06 15:14 | P.PRLE ---
RE: Surinder Stephenson Dear Sabrina Surinder underwent pulmonary isolation for management of paroxysmal atrial fibrillation Following the procedure atrial fibrillation was noninducible despite high-dose Isuprel and postatrial stimulation He will continue anticoagulation and will follow with you as previously scheduled Thank you for entrusting me with the care of the patient Warm regards Sincerely Nithin Messina
[2021-11-06 15:48] LABS: Glucose,Whole Blood 156 mg/dL (75-99)
[2021-11-06 17:22] LABS: Glucose,Whole Blood 190 mg/dL (75-99)
[2021-11-06] MEDS: LACTATED RINGERS 1,000 ML IV SCH ×2 (17:31→21:44)
[2021-11-06] MEDS: SODIUM CHLORIDE 0.9% 1,000 ML IV SCH ×2 (17:31→21:43)
[2021-11-06] MEDS: GABAPENTIN 300 MG CAP PO SCH ×2 (17:48→21:42)
[2021-11-06] MEDS: IPRATROPIUM-ALBUTEROL 3 ML NEB INHALATION PRN (20:25)
[2021-11-06 20:51] LABS: Glucose,Whole Blood 189 mg/dL (75-99)
[2021-11-06] MEDS ORDERED: METOPROLOL SUCCINATE (ER) 50 MG TAB.ER.24H PO SCH (21:00)
[2021-11-06] MEDS ORDERED: MONTELUKAST 10 MG TAB PO SCH (21:00)
[2021-11-06] MEDS: APIXABAN 5 MG TAB PO SCH (21:42)
[2021-11-06] MEDS: CYCLOBENZAPRINE 10 MG TAB PO SCH (21:42)
[2021-11-07] MEDS: IPRATROPIUM-ALBUTEROL 3 ML NEB INHALATION PRN (01:12)
[2021-11-07 07:30] LABS: Glucose,Whole Blood 116 mg/dL (75-99)
[2021-11-07] MEDS: APIXABAN 5 MG TAB PO SCH (07:57)
[2021-11-07] MEDS: GABAPENTIN 300 MG CAP PO SCH (07:57)
[2021-11-07] MEDS: CYCLOBENZAPRINE 10 MG TAB PO SCH (07:57)
[2021-11-07 08:17] VITALS: BP 118/78; PULSE 75; RESP 22; TEMP 97.8
[2021-11-07] MEDS ORDERED: FLUTICASONE 50MCG/SPRAY NASAL 16GM EA NOSTRIL SCH (09:00)
[2021-11-07] MEDS ORDERED: LOSARTAN 50 MG TAB PO SCH (09:00)
[2021-11-07] MEDS ORDERED: predniSONE 5 MG TAB PO SCH (09:00)
--- NOTE | 2021-11-07 10:57 | P.DS ---
Providers Attending physician: Nithin Messina Primary care physician: [facility] Course: Patient is doing well. No chest discomfort mild sore throat No dizziness lightheadedness no palpitations Rhythm is regular Heart sounds are normal Breath sounds are equal bilaterally Today there are no rhonchi no crackles Afebrile 97.8F pulse rate in the 70s, blood pressure 118/78 mmHg Groins of healed well no hematoma Impression Paroxysmal atrial fibrillation with RVR Morbid obesity Status post cryoablation of the pulmonary veins Patient had a left middle and a right middle pulmonary vein also which was successfully ablated Plan Discharge home today Incentive spirometry Adequate hydration Continue current medications Continue ELIQUIS Follow Dr. Messina in 1 week Plan - Discharge Summary Discharge Rx Participant: No New Discharge Prescriptions: No Action Cyclobenzaprine [Flexeril] 10 mg PO BID Tamsulosin [Flomax] 0.4 mg PO HS Gabapentin [Neurontin] 300 mg PO TID predniSONE 10 mg PO SUTUTHSA predniSONE 5 mg PO MOWEFR Theophylline 24 Hour [Raghavendra-24] 400 mg PO HS Montelukast [Singulair] 10 mg PO HS Albuterol Sulfate [Ventolin HFA] 2 puff INHALATION RT-Q6H PRN PRN Reason: Shortness Of Breath Metoprolol Succinate (ER) [Toprol XL] 50 mg PO HS Celecoxib [CeleBREX] 100 mg PO BID Lidocaine 5% Patch [Lidoderm 5% Patch] 1 patch TOPICAL DAILY PRN PRN Reason: Pain Losartan Potassium 100 mg PO DAILY Rosuvastatin [Crestor] 20 mg PO HS Xolair Injections (Unknown Dos 1 dose SQ Q14D Fluticasone Nasal [place] [Flonase Nasal [place]] 2 spray EA NOSTRIL DAILY metFORMIN HCL [Glucophage] 1,000 mg PO HS Topiramate [Topamax] 50 mg PO BID Ipratropium-Albuterol Nebulize [Duoneb 0.5 mg-3 mg/3 ml Soln] 1 neb INHALATION DIRECTED Apixaban [Eliquis] 5 mg PO BID Fluticasone/Umeclidin/Vilanter [Trelegy Ellipta 100-62.5-25] 1 inhalation INHALATION DAILY Discharge Medication List Albuterol Sulfate [Ventolin HFA] 2 puff INHALATION RT-Q6H PRN 08/13/19 [History] Cyclobenzaprine [Flexeril] 10 mg PO BID 03/12/20 [History] Gabapentin [Neurontin] 300 mg PO TID 08/13/19 [History] Montelukast [Singulair] 10 mg PO HS 08/13/19 [History] Tamsulosin [Flomax] 0.4 mg PO HS 08/13/19 [History] Theophylline 24 Hour [Raghavendra-24] 400 mg PO HS 08/13/19 [History] predniSONE 5 mg PO MOWEFR 08/13/19 [History] predniSONE 10 mg PO SUTUTHSA 08/13/19 [History] Celecoxib [CeleBREX] 100 mg PO BID 01/07/20 [History] Lidocaine 5% Patch [Lidoderm 5% Patch] 1 patch TOPICAL DAILY PRN 01/07/20 [History] Metoprolol Succinate (ER) [Toprol XL] 50 mg PO HS 01/07/20 [History] Ipratropium-Albuterol Nebulize [Duoneb 0.5 mg-3 mg/3 ml Soln] 1 neb INHALATION DIRECTED 01/16/21 [History] Losartan Potassium 100 mg PO DAILY 01/16/21 [History] Rosuvastatin [Crestor] 20 mg PO HS 01/16/21 [History] Topiramate [Topamax] 50 mg PO BID 01/16/21 [History] Xolair Injections (Unknown Dos 1 dose SQ Q14D 01/16/21 [History] metFORMIN HCL [Glucophage] 1,000 mg PO HS 01/16/21 [History] Apixaban [Eliquis] 5 mg PO BID 11/02/21 [History] Fluticasone Nasal [place] [Flonase Nasal [place]] 2 spray EA NOSTRIL DAILY 11/02/21 [History] Fluticasone/Umeclidin/Vilanter [Trelegy Ellipta 100-62.5-25] 1 inhalation INHALATION DAILY 11/02/21 [History] Follow up Appointment(s)/Referral(s): Nithin Messina MD [STAFF PHYSICIAN] - 1 Week (Follow-up with Starr Reed in 1 week) Activity/Diet/Wound Care/Special Instructions: Post EP study - Ablation instructions 1. Keep access sites dry for 2 days. 2. No heavy lifting or straining for 2 days. 3. Avoid bending the hips repeatedly for 2 days. 4. You may go up and down stairs slowly Call if the following is noted 1. Bleeding, increasing swelling or pain at the access sites. 2. Increasing chest discomfort, especially upon taking a deep breath. 3. Increasing shortness of breath, at rest or with exertion. 4. Undue cough / phlegm 5. Difficulty or pain while swallowing. 6. Pain or change in color in the extremities. 7. Fever, chills, rigors. 8. Increasing headache or neurologic symptoms. 9. Dizziness, fainting, palpitations Discharge Disposition: HOME SELF-CARE
[2021-11-08] MEDS ORDERED: metFORMIN 500 MG TAB PO SCH (21:00)
== END 2021-11-07 12:32 | disposition home or self-care (01) ==
LOC: CATHEP 09:30 → 6NMEDSUR 14:26 → CATHEP 11-07 12:32
PROVIDERS: ATTEND Internal Medicine Clinical Cardiac Electrophysiology
DX: I48.0 Paroxysmal atrial fibrillation (principal); E11.9 Type 2 diabetes mellitus without complications; E66.01 Morbid (severe) obesity due to excess calories; I10 Essential (primary) hypertension; J44.9 Chronic obstructive pulmonary disease, unspecified; K21.9 Gastro-esophageal reflux disease without esophagitis; M19.90 Unspecified osteoarthritis, unspecified site; Z68.41 Body mass index [BMI] 40.0-44.9, adult; Z79.01 Long term (current) use of anticoagulants; Z79.52 Long term (current) use of systemic steroids; Z79.84 Long term (current) use of oral hypoglycemic drugs; Z79.899 Other long term (current) drug therapy; Z82.49 Family history of ischemic heart disease and other diseases of the circulatory system; Z87.891 Personal history of nicotine dependence; Z20.822 Contact with and (suspected) exposure to COVID-19
CPT/HCPCS: 94640 ×2; 93623; 93656; 80048; 85025; 87635; C1894 ×2; C1769 ×4; C1760; C1730 ×2; C1759; C1733; C1766; J1100; J2001; J7512; Q9967; J1644

== ENCOUNTER → 2022-11-14 | Outpatient (CLI) | payer OTHER ==
--- NOTE | 2022-11-15 11:02 | NM ---
EXAMINATION TYPE: NM DatScan Brain SPECT DATE OF EXAM: 11/14/2022 COMPARISON: NONE HISTORY: Tremor TECHNIQUE: 10 drops of Lugol's solution was administered 1 hour prior to injection as a thyroid bloc kelsea agent. After the administration of 4.59 mCi I-123 Ioflupane DaTscan. Images obtained 3 hours p ost injection. SPECT images of the brain were acquired with axial and coronal reconstructions. FINDINGS: The axial SPECT images demonstrate increased background activity and reduced activity withi n the bilateral striata. IMPRESSION: Abnormal appearance highly suggestive of idiopathic Parkinson's disease or Parkinsonian s yndrome.
== END | disposition home or self-care (01) ==
LOC: RADNMMAIN 10:23
PROVIDERS: ATTEND Psychiatry & Neurology Neurology
DX: G25.0 Essential tremor (principal)
CPT/HCPCS: 78803; A9584

== ENCOUNTER → 2022-12-25 | Outpatient (CLI) | payer OTHER ==
--- NOTE | 2022-12-25 17:32 | BD ---
EXAMINATION TYPE: Axial Bone Density DATE OF EXAM: 12/25/2022 CLINICAL HISTORY: 62 years old Male. ICD-10 CODE: OSTEOPOROSIS M81.0 Height: 70 Weight: 309 FRAX RISK QUESTIONS: Glucocorticoids (More than 3mos): yes (Ex: prednisone, prednisolone, methylprednisolone, dexamethasone, and hydrocortisone). Current Tobacco Use: former RISK FACTORS HISTORY OF: Lost more than 2 inches in height since high school: yes Frequent falls: using walker...unsteady Poor Health: yes Hyperparathyroidism: no Adrenal Insufficiency: no MEDICATIONS: Prednisone or other steroids: yes, albuteral, prednisone, asthma, for many yrs Additional Medications: bp meds, metformin, surg for gerd, statin for cholesterol, vit d Additional History: arthritis lower back, torn acl left knee, EXAM MEASUREMENTS: Bone mineral densitometry was performed using the [employer] System. Bone mineral density as measured about the Lumbar spine is: ----- L1-L4(G/cm2): 1.226 T Score Values are as follows: ----- L1: 0.9 ----- L2: -0.4 ----- L3: 0.6 ----- L4: 0.2 ----- L1-L4: 0.4 Z Score Values are as follows: ----- L1: 0.3 ----- L2: -1.0 ----- L3: -0.1 ----- L4: -0.4 ----- L1-L4: -0.3 Bone mineral density is for his spine and hips this visit, prior study in 2010 was only of his left f orearm. Bone mineral density about the R hip (g/cm2): 0.911 Bone mineral density about the L hip (g/cm2): 0.891 T Score values are as follows: -----R Neck: -1.9 -----L Neck: -1.5 -----R Total: -0.8 -----L Total: -0.9 Z Score values are as follows: -----R Neck: -1.7 -----L Neck: -1.3 -----R Total: -1.3 -----L Total: -1.4 Bone mineral density is the first time for a true axial dexa study, 2010 study was for forearm only. FRAX%s: The graph provided illustrates a 10.6% chance for a major osteoporotic fx and a 2.4% chance f or the hips probability for fx in 10 years time. IMPRESSION: Osteopenia (T Score between -2.5 and -1). There is slightly increased risk of fracture and the patient may be considered for treatment. Re-Screen 2-5 years. NOTE: T-SCORE=SD OF THE YOUNG ADULT MEAN.
== END | disposition home or self-care (01) ==
LOC: RADBDWWP 10:56
PROVIDERS: ATTEND Physical Medicine & Rehabilitation Pain Medicine
DX: M81.0 Age-related osteoporosis without current pathological fracture (principal); M85.89 Other specified disorders of bone density and structure, multiple sites
CPT/HCPCS: 77080

== ENCOUNTER 2023-11-16 15:34 | Inpatient (IN) | payer OTHER, MEDICARE ==
[2023-11-16 16:19] LABS: Basophils % (A) 0 %; Eosinophils # (A) 0.5 k/uL (0-0.7); Eosinophils % (A) 4 %; HCT 45.2 % (39.0-53.0); HGB 14.5 gm/dL (13.0-17.5); Lymphocytes # (A) 2.8 k/uL (1.0-4.8); Lymphocytes % (A) 23 %; MCH 31.1 pg (25.0-35.0); MCHC 32.2 g/dL (31.0-37.0); MCV 96.8 fL (80.0-100.0); Mean Platelet Volume 8.3; Monocytes # (A) 1.3 k/uL (0-1.0); Monocytes % (A) 11 %; Neutrophils # (A) 7.2 k/uL (1.3-7.7); Neutrophils % (A) 58 %; Platelet Count 328 k/uL (150-450); RBC 4.67 m/uL (4.30-5.90); RDW 14.2 % (11.5-15.5); WBC 12.4 k/uL (3.8-10.6)
[2023-11-16] MEDS: SODIUM CHLORIDE 0.9% 500 ML 500 ML IV ONE ×4 (16:19→19:52)
[2023-11-16] MEDS: HYDROmorphone 0.5 MG/0.5 ML SYRINGE IVP STA (16:20)
[2023-11-16 16:28] LABS: ALT 35 U/L (4-49); AST 56 U/L (17-59); African American GFR (CKD) 37 (>60 ml/min/1.73 sqM); Alkaline Phosphatase 128 U/L (38-126); Anion Gap 11 mmol/L; Blood Urea Nitrogen 16 mg/dL (9-20); Calcium 8.5 mg/dL (8.4-10.2); Carbon Dioxide 22 mmol/L (22-30); Chloride 101 mmol/L (98-107); Glucose 168 mg/dL (74-99); Magnesium 1.7 mg/dL (1.6-2.3); Non-African American GFR(CKD) 32 (>60 ml/min/1.73 sqM); Potassium 3.8 mmol/L (3.5-5.1); Sodium 134 mmol/L (137-145); Total Protein 5.3 g/dL (6.3-8.2)
--- NOTE | 2023-11-16 17:05 | XR ---
EXAMINATION TYPE: XR KUB DATE OF EXAM: 11/16/2023 4:41 PM CLINICAL INDICATION:Male, 62 years old with history of constipation; [facility] COMPARISON: None. TECHNIQUE: One radiographic view of the abdomen was obtained. FINDINGS: There is a moderate stool burden, otherwise, the bowel gas pattern is nonspecific without d ilated loops of small or large bowel. There is no evidence for organomegaly or pneumoperitoneum. The osseous structures are intact. No abnormal calcifications are present. Fecal material and gas are d emonstrated throughout the colon and rectum. IMPRESSION: 1. Moderate stool burden throughout the colon. 2. Nonspecific bowel gas pattern without radiographic evidence for acute process.
--- NOTE | 2023-11-16 17:06 | ED ---
General Adult HPI - General Chief complaint: Weakness Stated complaint: difficulty walking; weakness Time Seen by Provider: 11/16/23 15:47 Source: patient, EMS, RN notes reviewed, old records reviewed, Caregiver Mode of arrival: EMS Limitations: no limitations - History of Present Illness Initial comments: 62 old male presenting with weakness, poor appetite, dehydration. Patient has history of Parkinson's apparently has not been eating and drinking well for the past 2 weeks. He also reports that he has not had a bowel movement in the past 2 weeks. He denies chest pain. Denies fever. Denies vomiting. - Related Data Home Medications Medication Instructions Recorded Confirmed Albuterol Sulfate [Ventolin HFA] 2 puff INHALATION RT-Q6H PRN 08/13/19 11/16/23 Cyclobenzaprine [Flexeril] 10 mg PO TID 08/13/19 11/16/23 Montelukast [Singulair] 10 mg PO DAILY 08/13/19 11/16/23 Tamsulosin [Flomax] 0.4 mg PO HS 08/13/19 11/16/23 predniSONE 10 mg PO MOWEFR 08/13/19 11/16/23 predniSONE 15 mg PO SUTUTHSA 08/13/19 11/16/23 Celecoxib [CeleBREX] 100 mg PO BID 01/07/20 11/16/23 Lidocaine 5% Patch [Lidoderm 5% 1 patch TOPICAL DIRECTED PRN 01/07/20 11/16/23 Patch] Metoprolol Succinate (ER) [Toprol 50 mg PO DAILY 01/07/20 11/16/23 XL] Rosuvastatin [Crestor] 20 mg PO DAILY 01/16/21 11/16/23 Topiramate [Topamax] 50 mg PO BID 01/16/21 11/16/23 Apixaban [Eliquis] 5 mg PO BID 11/02/21 11/16/23 Albuterol Nebulized [Ventolin 2.5 mg INHALATION RT-Q4H PRN 11/16/23 11/16/23 Nebulized] Carbidopa/Levodopa/Entacapone 1 tab PO TID 11/16/23 11/16/23 [Stalevo 200] Empagliflozin [Jardiance] 25 mg PO DAILY 11/16/23 11/16/23 Fluticasone/Vilanterol [Breo 1 puff INHALATION RT-DAILY 11/16/23 11/16/23 Ellipta 200-25 Mcg Inhaler] Gabapentin [Neurontin] 400 mg PO TID 11/16/23 11/16/23 Ipratropium Nebulized [Atrovent 0.5 mg INHALATION RT-Q4H PRN 11/16/23 11/16/23 Nebulized 0.2 MG/ML] Ketoconazole 2% Cream [Nizoral 2%] 1 applic TOPICAL DAILY 11/16/23 11/16/23 Naloxegol Oxalate [Movantik] 25 mg PO DAILY 11/16/23 11/16/23 Omalizumab [Xolair] 1 dose SQ Q14D 11/16/23 11/16/23 Theophylline 24 Hour [Raghavendra-24] 400 mg PO DAILY 11/16/23 11/16/23 Valsartan [Diovan] 160 mg PO BID 11/16/23 11/16/23 amLODIPine [Norvasc] 2.5 mg PO DAILY 11/16/23 11/16/23 metFORMIN HCL ER [Glucophage XR] 1,000 mg PO PC-SUPPER 11/16/23 11/16/23 oxyCODONE-APAP 5-325MG [Percocet 1 tab PO BID PRN 11/16/23 11/16/23 5-325 mg] rOPINIRole HCL [Requip] 0.5 mg PO HS PRN 11/16/23 11/16/23 Allergies Allergy/AdvReac Type Severity Reaction Status Date / Time Penicillins Allergy Rash/Hives Verified 11/16/23 17:47 Review of Systems ROS Statement: Those systems with pertinent positive or pertinent negative responses have been documented in the HPI. ROS Other: All systems not noted in ROS Statement are negative. Past Medical History Past Medical History: Atrial Fibrillation, Asthma, Diabetes Mellitus, GERD/Reflux, Hypertension, Osteoarthritis (OA) Additional Past Medical History / Comment(s): environmental allergies, back pain, frequent urination., states aortic valve enlarged. History of Any Multi-Drug Resistant Organisms: None Reported Past Surgical History: Tonsillectomy Additional Past Surgical History / Comment(s): Deviated Septum, Sharon Fundiplication, nerve ablation on back. , colonoscopy, Past Anesthesia/Blood Transfusion Reactions: Previous Problems w/ Anesthesia Additional Past Anesthesia/Blood Transfusion Reaction / Comment(s): difficult time "coming out" of anesthesia-states he was told due to asthma Past Psychological History: No Psychological Hx Reported Smoking Status: Former smoker Past Alcohol Use History: None Reported Past Drug Use History: None Reported - Past Family History Father Family Medical History: Myocardial Infarction ([place]) Mother Family Medical History: Cancer General Exam Limitations: no limitations General appearance: alert, in no apparent distress Head exam: Present: atraumatic, normocephalic ENT exam: Present: mucous membranes dry Respiratory exam: Present: normal lung sounds bilaterally. Absent: respiratory distress, wheezes Cardiovascular Exam: Present: normal rhythm, tachycardia GI/Abdominal exam: Present: soft, distended. Absent: tenderness, guarding, rebound Extremities exam: Absent: normal capillary refill Neurological exam: Present: alert. Absent: motor sensory deficit Psychiatric exam: Present: normal affect, normal mood Skin exam: Present: pallor Course Vital Signs 11/16/23 11/16/23 11/16/23 15:40 16:25 17:44 Temperature 98.1 F 97.6 F Pulse Rate 114 H 112 H 118 H Respiratory 24 26 H 24 Rate Blood Pressure 128/83 122/68 83/40 O2 Sat by Pulse 98 91 L 97 Oximetry Medical Decision Making - Medical Decision Making Was pt. sent in by a medical professional or institution (TYE Wong, EDUCATIONAL ADVISER, urgent care, hospital, or usp...) When possible be specific @ -[No] Did you speak to anyone other than the patient for history (EMS, parent, family, police, friend...)? What history was obtained from this source @ -[No] Did you review nursing and triage notes (agree or disagree)? Why? @ -[I reviewed and agree with nursing and triage notes] Were old charts reviewed (outside hosp., previous admission, EMS record, old EKG, old radiological studies, urgent care reports/EKG's, usp records)? Report findings @ -[No old charts were reviewed] Differential Weakness: Hypoglycemia, shock, sepsis, hyponatremia, anemia, infection, DE, ETOH, adverse medicine reaction, overdose, stroke, this is not meant to be an all-inclusive list. EKG interpreted by me (3pts min.). @EKG: Sinus tachycardia rate of 122, NM interval 173, QRS duration 83, QTc 388, no ST segment elevation X-rays interpreted by me (1pt min.). @ -Chest x-ray negative for acute cardiopulmonary findings, abdominal x-ray showing moderate stool burden. CT interpreted by me (1pt min.). @ -[None done] U/S interpreted by me (1pt. min.). @ -[None done] What testing was considered but not performed or refused? (CT, X-rays, U/S, labs)? Why? @ -[None] What meds were considered but not given or refused? Why? @ -[None] Did you discuss the management of the patient with other professionals (professionals i.e. , PA, EDUCATIONAL ADVISER, lab, RT, psych nurse, social worker clinical, import export manager, teacher, surveillance sensor officer, director case management)? Give summary @ -[No] Was smoking cessation discussed for >3mins.? @ -[No] Was critical care preformed (if so, how long)? @ -[No] Were there social determinants of health that impacted care today? How? (Homelessness, low income, unemployed, alcoholism, drug addiction, transportation, low edu. Level, literacy, decrease access to med. care, senior living, rehab)? @ -[No] Was there de-escalation of care discussed even if they declined (Discuss DNR or withdrawal of care, Hospice)? DNR status @ -[No] What co-morbidities impacted this encounter? (DM, HTN, Smoking, COPD, CAD, Cancer, CVA, ARF, Chemo, Hep., AIDS, mental health diagnosis, sleep apnea, morbid obesity)? @Parkinson's disease Was patient admitted / discharged? Hospital course, mention meds given and route, prescriptions, significant lab abnormalities, going to OR and other pertinent info. @ -62-year-old male with Parkinson's disease presenting with weakness, diffic ulty ambulating, constipation and dehydration. Patient appears very dehydrated. He is tachycardic with marginal blood pressure. Patient given IV fluid in the emergency department. He has a mild leukocytosis, elevated creatinine and elevated lactic acid. I suspect this is from dehydration but the patient is covered with IV antibiotics and blood cultures and urine culture is obtained. The patient also has an elevated troponin which I suspect is from demand he has no active chest pain. I will trend this enzyme. Patient admitted to internal medicine. Undiagnosed new problem with uncertain prognosis? @ -[No] Drug Therapy requiring intensive monitoring for toxicity (Heparin, Nitro, Insuli n, Cardizem)? @ -[No] Were any procedures done? @ -[No] Diagnosis/symptom? @ -[default] Acute, or Chronic, or Acute on Chronic? @ -[default] Uncomplicated (without systemic symptoms) or Complicated (systemic symptoms)? @ -[default] Side effects of treatment? @ -[No] Exacerbation, Progression, or Severe Exacerbation? @ -[No] Poses a threat to life or bodily function? How? (Chest pain, USA, DE, pneumonia, PE, COPD, DKA, ARF, appy, cholecystitis, CVA, Diverticulitis, Homicidal, Suicidal, threat to staff... and all critical care pts) @ -[No] - Lab Data Result diagrams: 11/16/23 16:06 11/16/23 16:06 Lab Results 11/16/23 11/16/23 11/16/23 Range/Units 16:06 16:06 16:06 WBC 12.4 H (3.8-10.6) k/uL RBC 4.67 (4.30-5.90) m/uL Hgb 14.5 (13.0-17.5) gm/dL Hct 45.2 (39.0-53.0) % MCV 96.8 (80.0-100.0) fL MCH 31.1 (25.0-35.0) pg MCHC 32.2 (31.0-37.0) g/dL RDW 14.2 (11.5-15.5) % Plt Count 328 (150-450) k/uL MPV 8.3 Neutrophils % 58 % Lymphocytes % 23 % Monocytes % 11 % Eosinophils % 4 % Basophils % 0 % Neutrophils # 7.2 (1.3-7.7) k/uL Lymphocytes # 2.8 (1.0-4.8) k/uL Monocytes # 1.3 H (0-1.0) k/uL Eosinophils # 0.5 (0-0.7) k/uL Basophils # 0.0 (0-0.2) k/uL PT (10.0-12.5) sec INR (<1.2) APTT (22.0-30.0) sec Sodium 134 L (137-145) mmol/L Potassium 3.8 (3.5-5.1) mmol/L Chloride 101 (98-107) mmol/L Carbon Dioxide 22 (22-30) mmol/L Anion Gap 11 mmol/L BUN 16 (9-20) mg/dL Creatinine 2.10 H (0.66-1.25) mg/dL Est GFR (CKD-EPI)AfAm 37 (>60 ml/min/1.73 sqM) Est GFR (CKD-EPI)NonAf 32 (>60 ml/min/1.73 sqM) Glucose 168 H (74-99) mg/dL Plasma Lactic Acid Momo 3.9 H* (0.7-2.0) mmol/L Calcium 8.5 (8.4-10.2) mg/dL Magnesium 1.7 (1.6-2.3) mg/dL Total Bilirubin 1.0 (0.2-1.3) mg/dL AST 56 (17-59) U/L ALT 35 (4-49) U/L Alkaline Phosphatase 128 H (38-126) U/L Troponin I (0.000-0.034) ng/mL Total Protein 5.3 L (6.3-8.2) g/dL Albumin 3.0 L (3.5-5.0) g/dL 11/16/23 11/16/23 Range/Units 16:06 17:25 WBC (3.8-10.6) k/uL RBC (4.30-5.90) m/uL Hgb (13.0-17.5) gm/dL Hct (39.0-53.0) % MCV (80.0-100.0) fL MCH (25.0-35.0) pg MCHC (31.0-37.0) g/dL RDW (11.5-15.5) % Plt Count (150-450) k/uL MPV Neutrophils % % Lymphocytes % % Monocytes % % Eosinophils % % Basophils % % Neutrophils # (1.3-7.7) k/uL Lymphocytes # (1.0-4.8) k/uL Monocytes # (0-1.0) k/uL Eosinophils # (0-0.7) k/uL Basophils # (0-0.2) k/uL PT 12.1 (10.0-12.5) sec INR 1.1 (<1.2) APTT 24.4 (22.0-30.0) sec Sodium (137-145) mmol/L Potassium (3.5-5.1) mmol/L Chloride (98-107) mmol/L Carbon Dioxide (22-30) mmol/L Anion Gap mmol/L BUN (9-20) mg/dL Creatinine (0.66-1.25) mg/dL Est GFR (CKD-EPI)AfAm (>60 ml/min/1.73 sqM) Est GFR (CKD-EPI)NonAf (>60 ml/min/1.73 sqM) Glucose (74-99) mg/dL Plasma Lactic Acid Momo (0.7-2.0) mmol/L Calcium (8.4-10.2) mg/dL Magnesium (1.6-2.3) mg/dL Total Bilirubin (0.2-1.3) mg/dL AST (17-59) U/L ALT (4-49) U/L Alkaline Phosphatase (38-126) U/L Troponin I 0.061 H* (0.000-0.034) ng/mL Total Protein (6.3-8.2) g/dL Albumin (3.5-5.0) g/dL Disposition Clinical Impression: Lactic acidosis, Dehydration, LO (acute kidney injury) Disposition: ADMITTED IP TO THIS [facility] Condition: Serious Is patient prescribed a controlled substance at d/c from ED?: No Referrals: Patrick Gutierrez DO [Primary Care Provider] - 1-2 days Time of Disposition: 18:49
--- NOTE | 2023-11-16 17:06 | XR ---
EXAMINATION TYPE: XR chest 2V DATE OF EXAM: 11/16/2023 4:41 PM CLINICAL INDICATION:Male, 62 years old with history of Weakness; [facility] COMPARISON: Chest radiographs from 07/18/2020 TECHNIQUE: XR chest 2V Frontal and lateral views of the chest. FINDINGS: Lungs/Pleura: Prominent interstitial lung markings are seen scattered throughout the lungs. No eviden ce of focal consolidation, pneumothorax or pleural effusion. Pulmonary vascularity: Unremarkable. Heart/mediastinum: Cardiomediastinal silhouette is unremarkable. Musculoskeletal: No acute osseous pathology. IMPRESSION: Chronic changes without acute pulmonary process. No significant change from prior.
[2023-11-16 17:48] LABS: INR 1.1 (<1.2); Partial Thromboplastin Time 24.4 sec (22.0-30.0); Prothrombin Time 12.1 sec (10.0-12.5)
[2023-11-16] MEDS: SODIUM CHLORIDE 0.9% 1,000 ML IV SCH (17:56)
[2023-11-16] MEDS ORDERED: NALOXONE 0.4 MG/ML 1 ML VIAL IV PRN (18:32)
[2023-11-16] MEDS ORDERED: ACETAMINOPHEN TAB 325 MG TAB PO PRN (18:32)
[2023-11-16] MEDS ORDERED: ONDANSETRON 4 MG/2 ML VIAL IVP PRN (18:32)
[2023-11-16] MEDS: ASPIRIN 325 MG TAB PO STA (18:44)
[2023-11-16] MEDS: IPRATROPIUM-ALBUTEROL 3 ML NEB INHALATION STA (19:04)
[2023-11-16] MEDS: ALBUTEROL NEBULIZED 2.5 MG/3 ML INHALATION STA (19:04)
[2023-11-16] MEDS: methylPREDNISolone SOD SUCCI 125 MG/2 ML VIAL IV SCH (19:04)
[2023-11-16] MEDS: THEOPHYLLINE 24 HOUR 400 MG CAP.ER.24H PO SCH (21:05)
[2023-11-16] MEDS: VALSARTAN 160 MG TAB PO SCH (21:05)
[2023-11-16] MEDS: ENTACAPONE 200 MG TAB PO SCH (21:06)
[2023-11-16] MEDS: CARBIDOPA-LEVODOPA 25-100 MG 1 EACH TAB PO SCH (21:09)
[2023-11-16] MEDS: APIXABAN 5 MG TAB PO SCH (21:09)
[2023-11-16] MEDS: metFORMIN 500 MG TAB PO SCH (21:09)
[2023-11-16] MEDS: CYCLOBENZAPRINE 10 MG TAB PO SCH (21:10)
[2023-11-16] MEDS: TOPIRAMATE 25 MG TAB PO SCH (21:10)
[2023-11-16] MEDS: TAMSULOSIN 0.4 MG CAP.ER.24H PO SCH (21:11)
[2023-11-16] MEDS: GABAPENTIN 400 MG CAP PO SCH (21:18)
[2023-11-16] MEDS: predniSONE 5 MG TAB PO SCH (21:22)
[2023-11-16] MEDS: IPRATROPIUM 0.5 MG/2.5 ML NEBU INHALATION PRN (21:40)
[2023-11-17 04:32] LABS: Appearance,Urine Turbid (Clear); Color,Urine Yellow
[2023-11-17 04:33] LABS: Bilirubin,Urine Negative (Negative); Blood,Urine Moderate (Negative); Glucose,Urine (UA) 4+ (Negative); Ketones,Urine Trace (Negative); Protein,Urine 1+ (Negative); Specific Gravity,Urine 1.014 (1.001-1.035); Urobilinogen,Urine 0.2 mg/dL (<2.0)
[2023-11-17 04:34] LABS: Bacteria,Urine Moderate /hpf; Granular Casts,Urine 7 /lpf (0); Hyaline Casts,Urine 10 /lpf (0-2); Leukocyte Esterase,Urine Large (Negative); Nitrite,Urine Negative (Negative); RBC,Urine 10 /hpf (0-5); WBC,Urine 15 /hpf (0-5)
[2023-11-17 04:35] LABS: Mucus,Urine Moderate /hpf
[2023-11-17] MEDS: ALBUTEROL NEBULIZED 2.5 MG/3 ML INHALATION PRN (08:42)
[2023-11-17] MEDS: SYMBICORT 160-4.5 MCG INHALER INHALATION SCH (08:42)
[2023-11-17] MEDS: METOPROLOL SUCCINATE (ER) 50 MG TAB.ER.24H PO SCH (09:41)
[2023-11-17] MEDS: amLODIPine 2.5 MG TAB PO SCH (09:41)
[2023-11-17] MEDS: ATORVASTATIN 40 MG TAB PO SCH (09:42)
[2023-11-17] MEDS: MONTELUKAST 10 MG TAB PO SCH (09:42)
[2023-11-17 10:26] LABS: Basophils % (A) 0 %; Eosinophils # (A) 0.1 k/uL (0-0.7); Eosinophils % (A) 1 %; HCT 42.1 % (39.0-53.0); HGB 13.1 gm/dL (13.0-17.5); Lymphocytes # (A) 0.7 k/uL (1.0-4.8); Lymphocytes % (A) 4 %; MCH 30.8 pg (25.0-35.0); MCHC 31.2 g/dL (31.0-37.0); MCV 98.9 fL (80.0-100.0); Mean Platelet Volume 7.9; Monocytes # (A) 0.3 k/uL (0-1.0); Monocytes % (A) 2 %; Neutrophils # (A) 14.7 k/uL (1.3-7.7); Neutrophils % (A) 93 %; Platelet Count 344 k/uL (150-450); RBC 4.26 m/uL (4.30-5.90); WBC 15.8 k/uL (3.8-10.6)
[2023-11-17 10:43] LABS: African American GFR (CKD) 31 (>60 ml/min/1.73 sqM); Anion Gap 11 mmol/L; Blood Urea Nitrogen 21 mg/dL (9-20); Carbon Dioxide 17 mmol/L (22-30); Chloride 107 mmol/L (98-107); Glucose 238 mg/dL (74-99); Non-African American GFR(CKD) 27 (>60 ml/min/1.73 sqM); Potassium 4.1 mmol/L (3.5-5.1); Sodium 135 mmol/L (137-145)
[2023-11-17] MEDS: SODIUM CHLORIDE 0.9% 1,000 ML IV SCH (11:01)
[2023-11-17] MEDS: oxyCODONE-APAP 5-325MG 1 EACH TAB PO PRN (11:03)
[2023-11-17] MEDS: NYSTATIN 100,000 UNIT/GM POWD 15 GM TOPICAL SCH (11:06)
[2023-11-17] MEDS: IPRATROPIUM-ALBUTEROL 3 ML NEB INHALATION PRN (11:09)
--- NOTE | 2023-11-17 16:04 | P.HPIM ---
History of Present Illness H&P Date: 11/17/23 Chief Complaint: Generalized weakness Patient is a 62-year-old male with a past medical history of Parkinson's dementia is a walker at home, atrial fibrillation on anticoagulation with Eliquis, hypertension, GERD, osteoarthritis and history of Sharon fundoplication n and prior history of smoking presents to ER with complaints of generalized weakness decreased appetite and and has been falling more recently. Patient was also having lower abdominal discomfort/pain. Patient was also having difficulty walking. He has been having worsening symptoms for the past 2 weeks. Patient also has not had any bowel movement for the past 2 weeks. Denies any chest pain or shortness of breath. Patient did have lower abdominal pain. No cough or sputum production. Patient was afebrile on admission. Patient was tachycardic with heart rate 122 on admission blood pressure 83/40 pulse 108 respirations 24 and pulse ox 91% on 2 L oxygen via nasal cannula. Chest x-ray showed chronic changes without acute pulmonary process. No significant change from prior. [facility] x-ray showed moderate stool burden throughout the colon. Nonspecific bowel gas pattern without radiographic evidence for acute process. EKG showed sinus tachycardia with frequent supraventricular premature complexes. Laboratory data showed WBC 12.4 hemoglobin 14.5 and platelets 328 Sodium 134 potassium 3.8 chloride 101 bicarb is 22 BUN 16 and creatinine 2.1 and blood sugar 168 and lactic acid 3.9 and magnesium 1.7 troponin 0.061, 0.066 and 0.064 Urinalysis showed 1+ protein 4+ glucose trace ketones large leukocyte esterase with elevated RBCs and WBCs and hyaline cast. Review of Systems Constitutional: Patient denies any fever or chills . Generalized weakness and fatigue. s. Abdomen: Patient denied nausea vomiting and diarrhea. Patient did have lower abdominal pain discomfort/pain and constipation.. Cardiovascular: Patient denies any chest pain or short of breath no pa lpitations. Respiratory: patient denied any cough or sputum production. No shortness of breath Neurologic: Patient denied any numbness or tingling. no headache. Musculoskeletal: Patient denies any complaints of joint swelling or deformity. Skin: Negative Psychiatric: Negative Endocrine: No heat or cold intolerance. No recent weight gain. Genitourinary: No dysuria or hematuria. All other 14 point ROS negative except the above Past Medical History Past Medical History: Atrial Fibrillation, Asthma, Diabetes Mellitus, GERD/Reflux, Hypertension, Osteoarthritis (OA) Additional Past Medical History / Comment(s): environmental allergies, back pain, frequent urination., states aortic valve enlarged. History of Any Multi-Drug Resistant Organisms: None Reported Past Surgical History: Tonsillectomy Additional Past Surgical History / Comment(s): Deviated Septum, Sharon Fundiplication, nerve ablation on back. , colonoscopy, Past Anesthesia/Blood Transfusion Reactions: Previous Problems w/ Anesthesia Additional Past Anesthesia/Blood Transfusion Reaction / Comment(s): difficult time "coming out" of anesthesia-states he was told due to asthma Past Psychological History: No Psychological Hx Reported Smoking Status: Former smoker Past Alcohol Use History: None Reported Past Drug Use History: None Reported - Past Family History Father Family Medical History: Myocardial Infarction ([place]) Mother Family Medical History: Cancer Medications and Allergies Home Medications Medication Instructions Recorded Confirmed Type Albuterol Sulfate [Ventolin HFA] 2 puff INHALATION RT-Q6H PRN 08/13/19 11/16/23 History Cyclobenzaprine [Flexeril] 10 mg PO TID 08/13/19 11/16/23 History Montelukast [Singulair] 10 mg PO DAILY 08/13/19 11/16/23 History Tamsulosin [Flomax] 0.4 mg PO HS 08/13/19 11/16/23 History predniSONE 10 mg PO MOWEFR 08/13/19 11/16/23 History predniSONE 15 mg PO SUTUTHSA 08/13/19 11/16/23 History Celecoxib [CeleBREX] 100 mg PO BID 01/07/20 11/16/23 History Lidocaine 5% Patch [Lidoderm 5% 1 patch TOPICAL DIRECTED PRN 01/07/20 11/16/23 History Patch] Metoprolol Succinate (ER) [Toprol 50 mg PO DAILY 01/07/20 11/16/23 History XL] Rosuvastatin [Crestor] 20 mg PO DAILY 01/16/21 11/16/23 History Topiramate [Topamax] 50 mg PO BID 01/16/21 11/16/23 History Apixaban [Eliquis] 5 mg PO BID 11/02/21 11/16/23 History Albuterol Nebulized [Ventolin 2.5 mg INHALATION RT-Q4H PRN 11/16/23 11/16/23 History Nebulized] Carbidopa/Levodopa/Entacapone 1 tab PO TID 11/16/23 11/16/23 History [Stalevo 200] Empagliflozin [Jardiance] 25 mg PO DAILY 11/16/23 11/16/23 History Fluticasone/Vilanterol [Breo 1 puff INHALATION RT-DAILY 11/16/23 11/16/23 History Ellipta 200-25 Mcg Inhaler] Gabapentin [Neurontin] 400 mg PO TID 11/16/23 11/16/23 History Ipratropium Nebulized [Atrovent 0.5 mg INHALATION RT-Q4H PRN 11/16/23 11/16/23 History Nebulized 0.2 MG/ML] Ketoconazole 2% Cream [Nizoral 2%] 1 applic TOPICAL DAILY 11/16/23 11/16/23 History Naloxegol Oxalate [Movantik] 25 mg PO DAILY 11/16/23 11/16/23 History Omalizumab [Xolair] 1 dose SQ Q14D 11/16/23 11/16/23 History Theophylline 24 Hour [Raghavendra-24] 400 mg PO DAILY 11/16/23 11/16/23 History Valsartan [Diovan] 160 mg PO BID 11/16/23 11/16/23 History amLODIPine [Norvasc] 2.5 mg PO DAILY 11/16/23 11/16/23 History metFORMIN HCL ER [Glucophage XR] 1,000 mg PO PC-SUPPER 11/16/23 11/16/23 History oxyCODONE-APAP 5-325MG [Percocet 1 tab PO BID PRN 11/16/23 11/16/23 History 5-325 mg] rOPINIRole HCL [Requip] 0.5 mg PO HS PRN 11/16/23 11/16/23 History Allergies Allergy/AdvReac Type Severity Reaction Status Date / Time Penicillins Allergy Rash/Hives Verified 11/16/23 17:47 Physical Exam Vitals: Vital Signs Temp Pulse Pulse Resp BP BP Pulse Ox 11/17/23 08:54 121 H 18 11/17/23 08:43 126 H 20 97 11/17/23 08:00 98.2 F 112 H 18 112/61 96 11/17/23 06:42 98.0 F 11/17/23 06:30 115 H 20 114/53 97 11/17/23 05:30 101 H 16 96/35 95 11/17/23 02:14 106 H 11/17/23 02:04 110 H 11/17/23 02:00 110 H 16 106/57 96 11/17/23 01:07 121 H 28 H 110/42 11/16/23 21:52 105 H 11/16/23 21:40 98 21 100/67 11/16/23 19:58 117 H 30 H 116/84 11/16/23 19:19 115 H 26 H 73/51 11/16/23 19:13 117 H 22 11/16/23 19:05 117 H 22 11/16/23 18:55 97.1 F L 122 H 24 74/38 96 11/16/23 17:44 97.6 F 118 H 24 83/40 97 11/16/23 16:25 112 H 26 H 122/68 91 L 11/16/23 15:40 98.1 F 114 H 24 128/83 98 Intake and Output 11/16/23 11/17/23 11/17/23 22:59 06:59 14:59 Other: Weight 136.078 kg PHYSICAL EXAMINATION: Patient is lying in the bed comfortably, no acute distress, awake alert and oriented. Obese. HEENT: Normocephalic. Neck is supple. Pupils reactive. Nostrils clear. Oral cavity is moist. Neck reveals no JVD, carotid bruits, or thyromegaly. CHEST EXAMINATION: Trachea is central. Symmetrical expansion. Bibasilar diminished sounds. Otherwise clear to auscultation. ABDOMEN: Soft. Bowel sounds normal. No organomegaly. No abdominal bruits. Extremities: reveal no edema. No clubbing or cyanosis Neurologically awake, alert, oriented x 2-3 with mild cognitive impairment. Able to move all extremities while in bed. No gross focal deficits noted Skin: No rash or skin lesions. Psychiatric: Coperative. Nonsuicidal Musculoskeletal: No joint swelling or deformity. Results CBC & Chem 7: 11/17/23 10:12 11/17/23 10:12 Labs: Abnormal Lab Results - Last 24 Hours (Table) 11/16/23 11/16/23 11/16/23 Range/Units 16:06 16:06 16:06 WBC 12.4 H (3.8-10.6) k/uL Monocytes # 1.3 H (0-1.0) k/uL Sodium 134 L (137-145) mmol/L Creatinine 2.10 H (0.66-1.25) mg/dL Glucose 168 H (74-99) mg/dL Plasma Lactic Acid Momo 3.9 H* (0.7-2.0) mmol/L Alkaline Phosphatase 128 H (38-126) U/L Troponin I (0.000-0.034) ng/mL Total Protein 5.3 L (6.3-8.2) g/dL Albumin 3.0 L (3.5-5.0) g/dL Urine Protein (Negative) Urine Glucose (UA) (Negative) Urine Ketones (Negative) Ur Leukocyte Esterase (Negative) Urine RBC (0-5) /hpf Urine WBC (0-5) /hpf Urine Bacteria (None) /hpf Hyaline Casts (0-2) /lpf Urine Mucus (None) /hpf 11/16/23 11/16/23 11/16/23 Range/Units 16:06 18:55 21:25 WBC (3.8-10.6) k/uL Monocytes # (0-1.0) k/uL Sodium (137-145) mmol/L Creatinine (0.66-1.25) mg/dL Glucose (74-99) mg/dL Plasma Lactic Acid Momo 7.2 H* (0.7-2.0) mmol/L Alkaline Phosphatase (38-126) U/L Troponin I 0.061 H* 0.066 H* (0.000-0.034) ng/mL Total Protein (6.3-8.2) g/dL Albumin (3.5-5.0) g/dL Urine Protein (Negative) Urine Glucose (UA) (Negative) Urine Ketones (Negative) Ur Leukocyte Esterase (Negative) Urine RBC (0-5) /hpf Urine WBC (0-5) /hpf Urine Bacteria (None) /hpf Hyaline Casts (0-2) /lpf Urine Mucus (None) /hpf 11/16/23 11/16/23 11/17/23 Range/Units 22:01 22:01 03:30 WBC (3.8-10.6) k/uL Monocytes # (0-1.0) k/uL Sodium (137-145) mmol/L Creatinine (0.66-1.25) mg/dL Glucose (74-99) mg/dL Plasma Lactic Acid Momo 3.7 H* (0.7-2.0) mmol/L Alkaline Phosphatase (38-126) U/L Troponin I 0.064 H* (0.000-0.034) ng/mL Total Protein (6.3-8.2) g/dL Albumin (3.5-5.0) g/dL Urine Protein 1+ H (Negative) Urine Glucose (UA) 4+ H (Negative) Urine Ketones Trace H (Negative) Ur Leukocyte Esterase Large H (Negative) Urine RBC 10 H (0-5) /hpf Urine WBC 15 H (0-5) /hpf Urine Bacteria Moderate H (None) /hpf Hyaline Casts 10 H (0-2) /lpf Urine Mucus Moderate H (None) /hpf Thrombosis Risk Factor Assmnt - DVT/VTE Prophylaxis DVT/VTE Prophylaxis: Pharmacologic Prophylaxis ordered Assessment and Plan Assessment: Generalized weakness and fatigue likely dehydration and volume depletion Acute kidney injury likely vasomotor nephropathy Lactic acidosis due to decreased tissue perfusion Constipation with moderate stool burden in the colon as per [facility] x-ray Possible urinary tract infection Elevated troponin level likely type II HI Paroxysmal atrial fibrillation on anticoagulation with Eliquis, prior history of cryoablation of pulmonary veins. Parkinson's disease/dementia Osteoarthritis GERD Diabetes type 2 [id number] Asthma/COPD Prior history of smoking History of Sharon fundoplication Obesity with BMI 38.5 DVT prophylaxis patient is already on full anticoagulation with Eliquis Plan: Patient will be continued on IV hydration and monitor renal function. Replace electrolytes. Follow-up lactic acid level. Continue with DuoNebs and titrate her oxygen to room air. Patient did have a bowel movement t with suppository in the ER. Patient was given a dose of IV Solu-Medrol in the ER Due to elevated troponin level 2D echocardiogram was ordered. Consider cardiology evaluation if trends up. Continue home medications and follow-up closely. Current pain management and stool softeners as needed. Prognosis guarded with multimedical problems and comorbid conditions. PT OT will be consulted. Time with Patient: Greater than 30
[2023-11-17 17:24] LABS: Glucose,Whole Blood 202 mg/dL (70-110)
[2023-11-17 20:27] LABS: Glucose,Whole Blood 204 mg/dL (70-110)
[2023-11-18 06:01] LABS: Glucose,Whole Blood 217 mg/dL (70-110)
[2023-11-18 09:53] LABS: ALT 10 U/L (4-49); AST 52 U/L (17-59); African American GFR (CKD) 32 (>60 ml/min/1.73 sqM); Albumin 2.7 g/dL (3.5-5.0); Alkaline Phosphatase 99 U/L (38-126); Anion Gap 12 mmol/L; Blood Urea Nitrogen 34 mg/dL (9-20); Calcium 7.6 mg/dL (8.4-10.2); Carbon Dioxide 17 mmol/L (22-30); Chloride 108 mmol/L (98-107); Glucose 186 mg/dL (74-99); Non-African American GFR(CKD) 28 (>60 ml/min/1.73 sqM); Potassium 3.9 mmol/L (3.5-5.1); Sodium 137 mmol/L (137-145); Total Bilirubin 0.7 mg/dL (0.2-1.3); Total Protein 4.8 g/dL (6.3-8.2)
[2023-11-18 12:02] LABS: Glucose,Whole Blood 255 mg/dL (70-110)
[2023-11-18] MEDS ORDERED: DEXTROSE 50% SYRINGE 50 ML IVP PRN ×2 (16:13)
[2023-11-18] MEDS ORDERED: CYCLOBENZAPRINE 5 MG TAB PO PRN (16:18)
--- NOTE | 2023-11-18 16:22 | P.PN ---
Subjective Progress Note Date: 11/18/23 Patient is a 62-year-old male with a past medical history of Parkinson's dementia is a walker at home, atrial fibrillation on anticoagulation with Eliquis, hypertension, GERD, osteoarthritis and history of Sharon fundoplication n and prior history of smoking presents to ER with complaints of generalized we akness decreased appetite and and has been falling more recently. Patient was also having lower abdominal discomfort/pain. Patient was also having difficulty walking. He has been having worsening symptoms for the past 2 weeks. Patient also has not had any bowel movement for the past 2 weeks. Denies any chest pain or shortness of breath. Patient did have lower abdominal pain. No cough or spu charisse production. Patient was afebrile on admission. Patient was tachycardic with heart rate 122 on admission blood pressure 83/40 pulse 108 respirations 24 and pulse ox 91% on 2 L oxygen via nasal cannula. Chest x-ray showed chronic changes without acute pulmonary process. No significant change from prior. KUB x-ray showed moderate stool burden throughout the colon. Nonspecific bowel gas pattern without radiographic evidence for acute process. EKG showed sinus tachycardia with frequent supraventricular premature complexes. Laboratory data showed WBC 12.4 hemoglobin 14.5 and platelets 328 Sodium 134 potassium 3.8 chloride 101 bicarb is 22 BUN 16 and creatinine 2.1 and blood sugar 168 and lactic acid 3.9 and magnesium 1.7 troponin 0.061, 0.066 and 0.064 Urinalysis showed 1+ protein 4+ glucose trace ketones large leukocyte esterase with elevated RBCs and WBCs and hyaline cast. 11/18/2023 Patient is evaluated today in follow-up on the medical floor. Awake alert and oriented x 3. Patient continues on IV ceftriaxone for abnormal urinalysis. Urine culture is currently pending at this time. Patient's blood culture comes back with coagulase-negative staph which is a contaminant species. His blood pressure has been running on the lower side we will recommend to hold the amlodipine at this time. His heart rate is in the low 100s. Patient is pending echocardiogram at this time. His blood work today reveals a BUN of 34 and a creatinine of 2.37. His sodium is 137. Review of Systems Constitutional: Denied any fatigue denied any fever. Cardio vascular: denied any chest pain, palpitations Gastrointestinal: denied any nausea, vomiting, diarrhea Pulmonary: Denied any shortness of breath cough Neurologic denied any new focal deficits All inpatient medications were reviewed and appropriate changes in these medications as dictated in the interval history and assessment and plan PHYSICAL EXAMINATION: GENERAL: The patient is alert and oriented x3, not in any acute distress. Well developed, well nourished. HEENT: Pupils are round and equally reacting to light. EOMI. No scleral icterus. No conjunctival pallor. Normocephalic, atraumatic. No pharyngeal erythema. No thyromegaly. CARDIOVASCULAR: S1 and S2 present. No murmurs, rubs, or gallops. PULMONARY: Chest is clear to auscultation, no wheezing or crackles. ABDOMEN: Soft, nontender, nondistended, normoactive bowel sounds. No palpable organomegaly. MUSCULOSKELETAL: No joint swelling or deformity. EXTREMITIES: No cyanosis, clubbing, or pedal edema. NEUROLOGICAL: Gross neurological examination did not reveal any focal deficits. SKIN: No rashes. Assessment and Plan Generalized weakness and fatigue likely dehydration and volume depletion Acute kidney injury likely vasomotor nephropathy/Acute tubular necrosis Lactic acidosis due to decreased tissue perfusion Constipation with moderate stool burden in the colon as per KUB x-ray Possible urinary tract infection with abnormal urinalysis likely an asymptomatic bacteriurea we will wait for the urine culture at this time Elevated troponin level likely type II [place] Paroxysmal atrial fibrillation on anticoagulation with Eliquis, prior history of cryoablation of pulmonary veins. Parkinson's disease/dementia Osteoarthritis GERD Diabetes type 2 [id number] Asthma/COPD Prior history of smoking History of Sharon fundoplication Obesity with BMI 38.5 DVT prophylaxis patient is already on full anticoagulation with Eliquis GI prophylaxis Full Code Plan Patient will be continued on IV hydration and monitor renal function. Replace electrolytes Do to the renal function we will recommend to change oxycodone to norco PRN, decrease frequency of flexeril Consult nephrology and check a renal ultrasound Discontinue amlodipine Continue cardiac telemetry and monitor heart rate Accuchecks ACHS ordered and low dose levemir Currently pending echocardiogram PT/OT consultation Repeat blood work in the AM The impression and plan of care has been dictated by Rosalie Robb Nurse Practitioner as directed. Dr. Adam MD I have performed a history and physical examination and medical decision making of this patient, discussed the same with the dictator, and agree with the dictators assessment and plan as written, documented as a scribe. Based on total visit time, I have performed more than 50% of this visit. Objective - Vital Signs Vital signs: Vital Signs Temp 98.0 F 11/18/23 12:00 Pulse 107 H 11/18/23 14:00 Resp 20 11/18/23 14:00 BP 109/58 11/18/23 12:00 Pulse Ox 97 11/18/23 12:00 FiO2 Intake & Output 11/17/23 11/18/23 11/18/23 18:59 06:59 18:59 Intake Total 120 Output Total 100 550 350 Balance -100 -550 -230 Weight 136.078 kg 133 kg Intake: Oral 120 Output: Urine 100 550 Post Void Residual 350 Other: Voiding Method Urinal Urinal Urinal - Labs CBC & Chem 7: 11/17/23 10:12 11/18/23 07:58 Labs: Abnormal Lab Results - Last 24 Hours (Table) 11/17/23 11/17/23 11/18/23 Range/Units 17:22 20:24 05:59 Chloride (98-107) mmol/L Carbon Dioxide (22-30) mmol/L BUN (9-20) mg/dL Creatinine (0.66-1.25) mg/dL Glucose (74-99) mg/dL POC Glucose (mg/dL) 202 H 204 H 217 H (70-110) mg/dL Calcium (8.4-10.2) mg/dL Total Protein (6.3-8.2) g/dL Albumin (3.5-5.0) g/dL 11/18/23 11/18/23 Range/Units 07:58 12:01 Chloride 108 H (98-107) mmol/L Carbon Dioxide 17 L (22-30) mmol/L BUN 34 H (9-20) mg/dL Creatinine 2.37 H (0.66-1.25) mg/dL Glucose 186 H (74-99) mg/dL POC Glucose (mg/dL) 255 H (70-110) mg/dL Calcium 7.6 L (8.4-10.2) mg/dL Total Protein 4.8 L (6.3-8.2) g/dL Albumin 2.7 L (3.5-5.0) g/dL Microbiology - Last 24 Hours (Table) 11/16/23 19:10 Blood Culture Gram Stain - Preliminary Blood Blood Culture - Preliminary Coagulase Negative Staph Molecular ID 11/16/23 18:55 Blood Culture - Preliminary Blood Assessment and Plan Time with Patient: Less than 30
[2023-11-18 16:47] LABS: Glucose,Whole Blood 204 mg/dL (70-110)
[2023-11-18] MEDS: INSULIN ASPART (NovoLOG) 100 UNIT/ML VIAL SQ SCH (16:55)
--- NOTE | 2023-11-18 17:30 | US ---
EXAMINATION TYPE: US kidneys/renal and bladder DATE OF EXAM: 11/18/2023 Exam done portable COMPARISON: CT 2010 CLINICAL INDICATION: Male, 62 years old with history of LO; EXAM MEASUREMENTS: Right Kidney: 11.3 x 6.0 x 5.8 cm Left Kidney: 11.2 x 4.7 x 5.2 cm Right Kidney: inferior pole limited by overlying bowel gas Left Kidney: 0.6cm , cortical medullary differentiation maintained. Bladder: wnl There is no evidence for hydronephrosis at this point in time. No masses are identified. The urinary bladder is anechoic. Bilateral ureteral jets are seen. IMPRESSION: 1. No evidence for obstructive uropathy. 2. Nonobstructing left renal calculus.
[2023-11-18] MEDS ORDERED: predniSONE 5 MG TAB PO SCH (18:12)
[2023-11-18 20:03] LABS: Glucose,Whole Blood 195 mg/dL (70-110)
[2023-11-18] MEDS: HYDROcodone/APAP 5-325MG 1 EACH TAB PO PRN (21:06)
[2023-11-18] MEDS: METOPROLOL TARTRATE 25 MG TAB PO SCH (21:08)
[2023-11-18] MEDS: INSULIN DETEMIR (LEVEMIR) 100 UNIT/ML SYR SQ SCH (21:08)
[2023-11-19 05:48] LABS: Glucose,Whole Blood 161 mg/dL (70-110)
--- NOTE | 2023-11-19 07:44 | CA ---
Transthoracic Echo Report Name: Surinder Stephenson Age: 62 Gender: M : 1960 Exam Date: 11/18/2023 14:56 Exam Location: [facility] Ht (in): 74 Wt (lb): 300 Ordering Physician: Aniyah Ann MD Attending/Referring Phys: [facility], Clinic Board Lining Machine Operator Alisha Mattson, MARYLU Procedure CPT: Indications: ELeveted troponins Cardiac Hx: Technical Quality: Fair Contrast 1: Total Dose (mL): Contrast 2: Total Dose (mL): MEASUREMENTS (Male / Female) Normal Values 2D ECHO LV Diastolic Diameter PLAX 5.9 cm 4.2 - 5.9 / 3.9 - 5.3 cm LV Systolic Diameter PLAX 3.2 cm IVS Diastolic Thickness 1.3 cm 0.6 - 1.0 / 0.6 - 0.9 cm LVPW Diastolic Thickness 1.4 cm 0.6 - 1.0 / 0.6 - 0.9 cm LV Relative Wall Thickness 0.5 RV Internal Dim ED PLAX 2.5 cm LVOT Diameter 2.3 cm LA Systolic Diameter LX 3.9 cm 3.0 - 4.0 / 2.7 - 3.8 cm LV Diastolic Volume MOD BP 71.4 cm??? 67 - 155 / 56 - 104 cm??? LV Systolic Volume MOD BP 27.0 cm??? 22 - 58 / 19 - 49 cm??? LV Ejection Fraction MOD BP 62.2 % >= 55 % LV Cardiac Index MOD BP 2041.0 cm???/min???m??? LV Diastolic Volume MOD 4C 71.7 cm??? LV Systolic Volume MOD 4C 27.6 cm??? LV Ejection Fraction MOD 4C 61.5 % LV Cardiac Index MOD 4C 2028.5 cm???/min???m??? LV Diastolic Length 4C 7.5 cm LV Systolic Length 4C 6.2 cm LV Diastolic Volume MOD 2C 65.4 cm??? LV Systolic Volume MOD 2C 25.5 cm??? LV Ejection Fraction MOD 2C 61.0 % LV Cardiac Index MOD 2C 1835.4 cm???/min???m??? LV Diastolic Length 2C 6.9 cm LV Systolic Length 2C 6.6 cm M-MODE Aortic Root Diameter MM 4.2 cm LA Systolic Diameter MM 3.8 cm LA Ao Ratio MM 0.9 AV Cusp Separation MM 2.3 cm DOPPLER AV Peak Velocity 231.7 cm/s AV Peak Gradient 21.5 mmHg AV Mean Velocity 160.4 cm/s AV Mean Gradient 11.8 mmHg AV Velocity Time Integral 42.9 cm AI Peak Velocity 252.3 cm/s AI Peak Gradient 25.5 mmHg AI Pressure Half Time 655.2 ms LVOT Peak Velocity 133.3 cm/s LVOT Peak Gradient 7.1 mmHg LVOT Velocity Time Integral 29.1 cm LVOT Stroke Volume 124.0 cm??? LVOT Stroke Volume Index 48.0 ml/m??? LVOT Cardiac Index 5705.4 cm???/min???m??? AV Area Cont Eq vti 2.9 cm??? AV Area Cont Eq pk 2.5 cm??? TR Peak Velocity 245.9 cm/s TR Peak Gradient 24.2 mmHg Right Ventricular Systolic Press 34.2 mmHg FINDINGS Left Ventricle Left ventricular ejection fraction is estimated at 60-65 %. Mildly increased septal wall thickness. Left ventricular cavity size normal. Left ventricular cavity size normal. No obvious regional wall motion abnormalities. Right Ventricle Mild right ventricular dilatation. Right ventricular systolic pressure within normal limits. Right Atrium Normal right atrial size. Left Atrium Normal left atrial size. Mitral Valve Structurally normal mitral valve. Trace mitral regurgitation. Aortic Valve Trileaflet aortic valve. Mild aortic regurgitation. No aortic stenosis. Tricuspid Valve Structurally normal tricuspid valve. Trace to mild tricuspid regurgitation. Pulmonic Valve Structurally normal pulmonic valve. Trace pulmonic regurgitation. No pulmonic stenosis. Pericardium No pericardial or pleural effusion. Aorta Mildly dilated aortic annulus. CONCLUSIONS Normal LV systolic function Poorly visualized aortic valve with a mean gradient of 11 mmHg was identified across aortic valve Normal mitral valve apparatus Normal pulmonary artery systolic pressure Mildly dilated RV Previewed by: Dr. Karlos Leroy MD (Electronically Signed) Final Date: 19 November 2023 07:43
[2023-11-19 10:59] LABS: African American GFR (CKD) 48 (>60 ml/min/1.73 sqM); Anion Gap 7 mmol/L; Blood Urea Nitrogen 32 mg/dL (9-20); Calcium 7.6 mg/dL (8.4-10.2); Carbon Dioxide 20 mmol/L (22-30); Chloride 111 mmol/L (98-107); Glucose 130 mg/dL (74-99); Non-African American GFR(CKD) 42 (>60 ml/min/1.73 sqM); Potassium 3.7 mmol/L (3.5-5.1); Sodium 138 mmol/L (137-145)
--- NOTE | 2023-11-19 11:09 | P.NPCON ---
History of Present Illness - Reason for Consult acute renal failure - History of Present Illness Reason for consultation: Acute kidney injury History of present illness: Patient is a 62-year-old male seen in renal consultation for acute kidney injury. Patient's creatinine on admission was 2.1 and peaked at 2.44 this admission dated November 17, 2023. Today renal function is improved with creatinine down to 1.7. Patient states he came to the hospital due to generalized weakness and poor intake. Patient states he was constipated for nearly 2 weeks and was not able to tolerate much oral intake. He denies any urinary complaints. No gross hematuria or dysuria. Patient states he has history of A-fib and has undergone ablation in the past. He does have history of diabetes. Denies history of coronary artery disease. Denies regular use of nonsteroidals. I do see Celebrex on his home medication list. Additionally he was also on multiple antihypertensives which are currently held. Blood pressure has been on the lower side. Patient states he is also been falling frequently and has history of Parkinson's disease. Hemodynamically stable. Blood pressure on the lower side. Receiving IV fluids. Denies chest pain or shortness of breath. Vital signs are stable. General: No acute distress. HEENT: Head exam is unremarkable. LUNGS: No audible rhonchi or wheezes. HEART: Rate and Rhythm are regular. ABDOMEN: Nontender. EXTREMITITES: No edema. Past Medical History Past Medical History: Atrial Fibrillation, Asthma, Diabetes Mellitus, GERD/Reflux, Hypertension, Osteoarthritis (OA) Additional Past Medical History / Comment(s): environmental allergies, back pain, frequent urination., states aortic valve enlarged. History of Any Multi-Drug Resistant Organisms: None Reported Past Surgical History: Tonsillectomy Additional Past Surgical History / Comment(s): Deviated Septum, Sharon Fundiplication, nerve ablation on back. , colonoscopy, Past Anesthesia/Blood Transfusion Reactions: Previous Problems w/ Anesthesia Additional Past Anesthesia/Blood Transfusion Reaction / Comment(s): difficult time "coming out" of anesthesia-states he was told due to asthma Past Psychological History: No Psychological Hx Reported Smoking Status: Former smoker Past Alcohol Use History: None Reported Past Drug Use History: None Reported - Past Family History Father Family Medical History: Myocardial Infarction (DC) Mother Family Medical History: Cancer Medications and Allergies Home Medications Medication Instructions Recorded Confirmed Type Albuterol Sulfate [Ventolin HFA] 2 puff INHALATION RT-Q6H PRN 08/13/19 11/16/23 History Cyclobenzaprine [Flexeril] 10 mg PO TID 08/13/19 11/16/23 History Montelukast [Singulair] 10 mg PO DAILY 08/13/19 11/16/23 History Tamsulosin [Flomax] 0.4 mg PO HS 08/13/19 11/16/23 History predniSONE 10 mg PO MOWEFR 08/13/19 11/16/23 History predniSONE 15 mg PO SUTUTHSA 08/13/19 11/16/23 History Celecoxib [CeleBREX] 100 mg PO BID 01/07/20 11/16/23 History Lidocaine 5% Patch [Lidoderm 5% 1 patch TRANSDERM DIRECTED PRN 01/07/20 11/18/23 History Patch] Metoprolol Succinate (ER) [Toprol 50 mg PO DAILY 01/07/20 11/16/23 History XL] Rosuvastatin [Crestor] 20 mg PO DAILY 01/16/21 11/16/23 History Topiramate [Topamax] 50 mg PO BID 01/16/21 11/16/23 History Apixaban [Eliquis] 5 mg PO BID 11/02/21 11/16/23 History Albuterol Nebulized [Ventolin 2.5 mg INHALATION RT-Q4H PRN 11/16/23 11/16/23 History Nebulized] Carbidopa/Levodopa/Entacapone 1 tab PO TID 11/16/23 11/16/23 History [Stalevo 200] Empagliflozin [Jardiance] 25 mg PO DAILY 11/16/23 11/16/23 History Fluticasone/Vilanterol [Breo 1 puff INHALATION RT-DAILY 11/16/23 11/16/23 History Ellipta 200-25 Mcg Inhaler] Gabapentin [Neurontin] 400 mg PO TID 11/16/23 11/16/23 History Ipratropium Nebulized [Atrovent 0.5 mg INHALATION RT-Q4H PRN 11/16/23 11/16/23 History Nebulized 0.2 MG/ML] Ketoconazole 2% Cream [Nizoral 2%] 1 applic TOPICAL DAILY 11/16/23 11/16/23 History Naloxegol Oxalate [Movantik] 25 mg PO DAILY 11/16/23 11/16/23 History Omalizumab [Xolair] 1 dose SQ Q14D 11/16/23 11/16/23 History Theophylline 24 Hour [Raghavendra-24] 400 mg PO DAILY 11/16/23 11/16/23 History Valsartan [Diovan] 160 mg PO BID 11/16/23 11/16/23 History amLODIPine [Norvasc] 2.5 mg PO DAILY 11/16/23 11/16/23 History metFORMIN HCL ER [Glucophage XR] 1,000 mg PO PC-SUPPER 11/16/23 11/16/23 History oxyCODONE-APAP 5-325MG [Percocet 1 tab PO BID PRN 11/16/23 11/16/23 History 5-325 mg] rOPINIRole HCL [Requip] 0.5 mg PO HS PRN 11/16/23 11/16/23 History Allergies Allergy/AdvReac Type Severity Reaction Status Date / Time Penicillins Allergy Rash/Hives Verified 11/16/23 17:47 Physical Exam Vitals: Vital Signs Temp Pulse Pulse Pulse Resp BP BP 11/19/23 07:55 100 11/19/23 07:41 92 11/19/23 04:00 97.5 F L 84 16 93/56 11/19/23 00:29 107 H 95 20 11/19/23 00:00 95 20 90/47 11/18/23 20:42 108 H 18 11/18/23 20:36 104 H 20 11/18/23 20:00 97.9 F 72 20 105/61 11/18/23 16:00 97.7 F 104 H 20 102/63 11/18/23 15:54 106 H 11/18/23 15:43 106 H 11/18/23 14:00 107 H 106 H 20 11/18/23 12:00 98.0 F 106 H 20 109/58 11/18/23 11:55 105 H 11/18/23 11:43 105 H Pulse Ox 11/19/23 07:55 11/19/23 07:41 92 L 11/19/23 04:00 95 11/19/23 00:29 11/19/23 00:00 95 11/18/23 20:42 11/18/23 20:36 11/18/23 20:00 96 11/18/23 16:00 96 11/18/23 15:54 11/18/23 15:43 11/18/23 14:00 11/18/23 12:00 97 11/18/23 11:55 11/18/23 11:43 Intake and Output 11/18/23 11/19/23 11/19/23 22:59 06:59 14:59 Intake Total 220 120 Output Total 550 400 Balance 220 -550 -280 Intake: Oral 220 120 Output: Urine 550 400 Other: Voiding Method Urinal Urinal # Voids 1 1 # Bowel Movements 0 Results - Lab Results Most recent lab results Calcium 7.6 mg/dL (8.4-10.2) L 11/19/23 09:42 Magnesium 1.7 mg/dL (1.6-2.3) 11/16/23 16:06 11/17/23 10:12 11/19/23 09:42 Assessment and Plan Plan: Assessment: 1. Acute kidney injury secondary to ATN secondary to hypovolemia and further worsen with the use of antihypertensives including valsartan and also SGLT2 inhibitor. Creatinine peaked at 2.44 this admission and is 1.7 today. No hydronephrosis noted on kidney ultrasound. Creatinine near 1.2 in July 2020 and November 2021. 2. Metabolic acidosis secondary to lactic acidosis, acute kidney injury and IV fluids. Better. 3. Diabetes mellitus. 4. Coag negative staph bacteremia and pyuria on antibiotics. 5. History of A-fib. 6. Benign hypertension. Blood pressure currently on the lower side. 7. Parkinson's disease. Plan: Maintain IV fluids. Encouraged oral intake. Avoid nephrotoxins. Continue to monitor renal function and urine output. Continue to hold antihypertensives. Thank you for the consultation. I will continue to follow the patient with you during his hospital stay.
[2023-11-19 12:00] LABS: Glucose,Whole Blood 149 mg/dL (70-110)
--- NOTE | 2023-11-19 13:26 | P.PN ---
Subjective Progress Note Date: 11/19/23 Patient is a 62-year-old male with a past medical history of Parkinson's dementia is a walker at home, atrial fibrillation on anticoagulation with Eliquis, hypertension, GERD, osteoarthritis and history of Sharon fundoplication n and prior history of smoking presents to ER with complaints of generalized we akness decreased appetite and and has been falling more recently. Patient was also having lower abdominal discomfort/pain. Patient was also having difficulty walking. He has been having worsening symptoms for the past 2 weeks. Patient also has not had any bowel movement for the past 2 weeks. Denies any chest pain or shortness of breath. Patient did have lower abdominal pain. No cough or spu charisse production. Patient was afebrile on admission. Patient was tachycardic with heart rate 122 on admission blood pressure 83/40 pulse 108 respirations 24 and pulse ox 91% on 2 L oxygen via nasal cannula. Chest x-ray showed chronic changes without acute pulmonary process. No significant change from prior. KUB x-ray showed moderate stool burden throughout the colon. Nonspecific bowel gas pattern without radiographic evidence for acute process. EKG showed sinus tachycardia with frequent supraventricular premature complexes. Laboratory data showed WBC 12.4 hemoglobin 14.5 and platelets 328 Sodium 134 potassium 3.8 chloride 101 bicarb is 22 BUN 16 and creatinine 2.1 and blood sugar 168 and lactic acid 3.9 and magnesium 1.7 troponin 0.061, 0.066 and 0.064 Urinalysis showed 1+ protein 4+ glucose trace ketones large leukocyte esterase with elevated RBCs and WBCs and hyaline cast. 11/18/2023 Patient is evaluated today in follow-up on the medical floor. Awake alert and oriented x 3. Patient continues on IV ceftriaxone for abnormal urinalysis. Urine culture is currently pending at this time. Patient's blood culture comes back with coagulase-negative staph which is a contaminant species. His blood pressure has been running on the lower side we will recommend to hold the amlodipine at this time. His heart rate is in the low 100s. Patient is pending echocardiogram at this time. His blood work today reveals a BUN of 34 and a creatinine of 2.37. His sodium is 137. 11/19/2023 Patient is evaluated today in follow-up on the medical floor. Patient is currently awake alert x 3 with at the bedside. They are concerned with patient discharging to subacute rehab although patient was significantly weak and requiring a two-person assist to sit at the edge of the bed. He continues on IV ceftriaxone and urine culture is currently pending at this time. Echocardiogram comes back revealing normal LV systolic function with trace to mild TR. This patient has had an renal ultrasound revealing no evidence for obstructive uropathy and nonobstructing left renal calculus. Continue to monitor for urinary retention. His creatinine has improved down to 1.70 today. A repeat t roponin level is normal. Review of Systems Constitutional: Denied any fatigue denied any fever. Cardio vascular: denied any chest pain, palpitations Gastrointestinal: denied any nausea, vomiting, diarrhea Pulmo asnary: Denied any shortness of breath cough Neurologic denied any new focal deficits All inpatient medications were reviewed and appropriate changes in these medications as dictated in the interval history and assessment and plan PHYSICAL EXAMINATION: GENERAL: The patient is alert and oriented x3, not in any acute distress. Well developed, well nourished. HEENT: Pupils are round and equally reacting to light. EOMI. No scleral icterus. No conjunctival pallor. Normocephalic, atraumatic. No pharyngeal erythema. No thyromegaly. CARDIOVASCULAR: S1 and S2 present. No murmurs, rubs, or gallops. PULMONARY: Chest is clear to auscultation, no wheezing or crackles. ABDOMEN: Soft, nontender, nondistended, normoactive bowel sounds. No palpable organomegaly. MUSCULOSKELETAL: No joint swelling or deformity. EXTREMITIES: No cyanosis, clubbing, or pedal edema. NEUROLOGICAL: Gross neurological examination did not reveal any focal deficits. Diffuse weakness. SKIN: No rashes. Assessment and Plan Generalized weakness and fatigue likely dehydration and volume depletion Acute kidney injury likely vasomotor nephropathy/Acute tubular necrosis Lactic acidosis due to decreased tissue perfusion Constipation with moderate stool burden in the colon as per KUB x-ray Possible urinary tract infection with abnormal urinalysis likely an asymptomatic bacteriurea we will wait for the urine culture at this time Elevated troponin level likely type II [place] Paroxysmal atrial fibrillation on anticoagulation with Eliquis, prior history of cryoablation of pulmonary veins. Parkinson's disease/dementia recent diagnosis Osteoarthritis GERD Diabetes type 2 [id number] Asthma/COPD Prior history of smoking History of Sharon fundoplication Obesity with BMI 38.5 DVT prophylaxis patient is already on full anticoagulation with Eliquis GI prophylaxis Full Code Plan Patient will be continued on IV hydration and monitor renal function. Replace electrolytes Do to the renal function we will recommend to change oxycodone to norco PRN, decrease frequency of flexeril Consult nephrology Discontinue amlodipine, ARB remains on hold Continue cardiac telemetry and monitor heart rate Accuchecks ACHS ordered and low dose levemir PT/OT consultation recommending subacute rehab patient requesting [facility] Repeat blood work in the AM The impression and plan of care has been dictated by Rosalie Robb, Nurse Practitioner as directed. Dr. Adam MD I have performed a history and physical examination and medical decision making of this patient, discussed the same with the dictator, and agree with the dictators assessment and plan as written, documented as a scribe. Based on total visit time, I have performed more than 50% of this visit. Objective - Vital Signs Vital signs: Vital Signs Temp 97.5 F L 11/19/23 04:00 Pulse 100 11/19/23 07:55 Resp 16 11/19/23 04:00 BP 93/56 11/19/23 04:00 Pulse Ox 92 L 11/19/23 07:41 FiO2 Intake & Output 11/18/23 11/19/23 11/19/23 18:59 06:59 18:59 Intake Total 340 120 Output Total 350 550 400 Balance -10 -550 -280 Intake: Oral 340 120 Output: Urine 550 400 Post Void Residual 350 Other: Voiding Method Urinal Urinal # Voids 1 1 # Bowel Movements 0 - Labs CBC & Chem 7: 11/17/23 10:12 11/19/23 09:42 Labs: Abnormal Lab Results - Last 24 Hours (Table) 11/18/23 11/18/23 11/18/23 Range/Units 07:58 12:01 16:40 Chloride 108 H (98-107) mmol/L Carbon Dioxide 17 L (22-30) mmol/L BUN 34 H (9-20) mg/dL Creatinine 2.37 H (0.66-1.25) mg/dL Glucose 186 H (74-99) mg/dL POC Glucose (mg/dL) 255 H 204 H (70-110) mg/dL Calcium 7.6 L (8.4-10.2) mg/dL Total Protein 4.8 L (6.3-8.2) g/dL Albumin 2.7 L (3.5-5.0) g/dL 11/18/23 11/19/23 Range/Units 20:01 05:46 Chloride (98-107) mmol/L Carbon Dioxide (22-30) mmol/L BUN (9-20) mg/dL Creatinine (0.66-1.25) mg/dL Glucose (74-99) mg/dL POC Glucose (mg/dL) 195 H 161 H (70-110) mg/dL Calcium (8.4-10.2) mg/dL Total Protein (6.3-8.2) g/dL Albumin (3.5-5.0) g/dL Microbiology - Last 24 Hours (Table) 11/16/23 19:10 Blood Culture Gram Stain - Final Blood Blood Culture - Final Coagulase Negative Staph Molecular ID 11/16/23 18:55 Blood Culture - Preliminary Blood Assessment and Plan Time with Patient: Less than 30
[2023-11-19] MEDS: LACTULOSE 20 GM/30 ML CUP PO SCH (14:34)
[2023-11-19 16:26] LABS: Glucose,Whole Blood 107 mg/dL (70-110)
[2023-11-19 20:05] LABS: Glucose,Whole Blood 141 mg/dL (70-110)
[2023-11-20 06:03] LABS: Glucose,Whole Blood 114 mg/dL (70-110)
[2023-11-20 08:37] VITALS: TEMP 97.6
--- NOTE | 2023-11-20 11:24 | P.PN ---
Subjective Patient is seen in follow-up for acute kidney injury. Nonoliguric. Renal function improving. On IV fluids. Denies chest pain or shortness of breath. Vital signs are stable. General: No acute distress. HEENT: Head exam is unremarkable. LUNGS: No audible rhonchi or wheezes. HEART: Rate and Rhythm are regular. ABDOMEN: Nontender. EXTREMITITES: No edema. Objective - Vital Signs Vital signs: Vital Signs Temp 97.6 F 11/20/23 08:35 Pulse 110 H 11/20/23 11:14 Resp 18 11/20/23 11:14 BP 136/70 11/20/23 08:35 Pulse Ox 98 11/20/23 08:35 FiO2 Intake & Output 11/19/23 11/20/23 11/20/23 18:59 06:59 18:59 Intake Total 360 120 Output Total 850 800 Balance -490 -800 120 Intake: Oral 360 120 Output: Urine 850 800 Other: Voiding Method Urinal Urinal Urinal # Voids 1 - Labs CBC & Chem 7: 11/17/23 10:12 11/19/23 09:42 Labs: Abnormal Lab Results - Last 24 Hours (Table) 11/19/23 11/19/23 11/19/23 Range/Units 09:42 11:54 20:03 POC Glucose (mg/dL) 149 H 141 H (70-110) mg/dL Hemoglobin A1c 6.9 H (<=6.0) % 11/20/23 Range/Units 06:02 POC Glucose (mg/dL) 114 H (70-110) mg/dL Hemoglobin A1c (<=6.0) % Microbiology - Last 24 Hours (Table) 11/16/23 18:55 Blood Culture - Preliminary Blood 11/17/23 14:21 Urine Culture - Final Urine,Clean Catch 11/16/23 19:10 Blood Culture Gram Stain - Final Blood Blood Culture - Final Coagulase Negative Staph Molecular ID Assessment and Plan Plan: Assessment: 1. Acute kidney injury secondary to ATN secondary to hypovolemia and further worsen with the use of antihypertensives including valsartan and also SGLT2 inhibitor. Creatinine peaked at 2.44 this admission -1.7 yesterday. No hydronephrosis noted on kidney ultrasound. Creatinine near 1.2 in July 2020 and November 2021. 2. Metabolic acidosis secondary to lactic acidosis, acute kidney injury and IV fluids. Better. 3. Diabetes mellitus. 4. Coag negative staph bacteremia and pyuria on antibiotics. 5. History of A-fib. 6. Benign hypertension. Controlled. 7. Parkinson's disease. Plan: Maintain IV fluids. Decrease rate to 70 cc an hour. Encouraged oral intake. Avoid nephrotoxins. Continue to monitor renal function and urine output. Continue to hold antihypertensives.
[2023-11-20 11:26] LABS: Glucose,Whole Blood 132 mg/dL (70-110)
[2023-11-20 11:41] LABS: African American GFR (CKD) 71 (>60 ml/min/1.73 sqM); Anion Gap 4 mmol/L; Blood Urea Nitrogen 22 mg/dL (9-20); Calcium 7.4 mg/dL (8.4-10.2); Carbon Dioxide 25 mmol/L (22-30); Chloride 110 mmol/L (98-107); Glucose 128 mg/dL (74-99); Magnesium 1.8 mg/dL (1.6-2.3); Non-African American GFR(CKD) 61 (>60 ml/min/1.73 sqM); Potassium 3.6 mmol/L (3.5-5.1); Sodium 139 mmol/L (137-145)
--- NOTE | 2023-11-20 13:37 | P.DS ---
Providers Date of admission: 11/16/23 18:33 Attending physician: Aniyah Ann Consults: 11/18/23 16:15 Consult Physician Routine Consulting Provider: Lam Cannon Consult Reason/Comments: Acute kidney injury Do you want consulting provider notified?: Yes Primary care physician: [facility] Course: Final Diagnosis Generalized weakness and fatigue likely dehydration and volume depletion Acute kidney injury likely vasomotor nephropathy/Acute tubular necrosis Lactic acidosis due to decreased tissue perfusion Constipation with moderate stool burden in the colon as per KUB x-ray Possible urinary tract infection with abnormal urinalysis likely an asymptomatic bacteriurea we will wait for the urine culture at this time Elevated troponin level likely type II [place] Paroxysmal atrial fibrillation on anticoagulation with Eliquis, prior history of cryoablation of pulmonary veins. Parkinson's disease/dementia recent diagnosis Osteoarthritis GERD Diabetes type 2 [id number] Asthma/COPD Prior history of smoking History of Sharon fundoplication Obesity with BMI 38.5 Discharge Disposition Patient stable for discharge to [facility]. Patient will continue off of his ARB and metformin due to the renal dysfunction. His creatinine has now normalized. Patient will follow-up close with nephrology in the office and recommending to see Dr. Cannon within 1 week. Patient will need a BMP magnesium in 2 to 3 days. Continue on lactulose and miralax daily for the constipation. Patient will be on decreased dose of narcotics on discharge. Continue with nystatin in the groin and abdominal folds. Hospital Course Patient is a 62-year-old male with a past medical history of Parkinson's dementia is a walker at home, atrial fibrillation on anticoagulation with Eliquis, hypertension, GERD, osteoarthritis and history of Sharon fundoplication and prior history of smoking presents to ER with complaints of generalized weakness decreased appetite and has been falling more recently. Patient was also having lower abdominal discomfort/pain. Patient was also having difficulty walking. He has been having worsening symptoms for the past 2 weeks. Patient also has not had any bowel movement for the past 2 weeks. Denies any chest pain or shortness of breath. Patient did have lower abdominal pain. No cough or sputum production. Patient was afebrile on admission. 2.10 on admission was felt to be due to acute tubular necrosis and hypotension dehydration. Nephrology was consulted for evaluation. Patient had a renal ultrasound done which was showing no obstructive uropathy. There was also abnormal urinalysis which was likely from dehydration and urine culture was found to be negative. Completed IV ceftriaxone while inpatient would not require any antibiotics on discharge. Had an echocardiogram completed which shows normal LV systolic function, trace to mild tricuspid regurgitation and trace mitral vegetation. Mildly dilated right ventricle. Patient's valsartan, metformin were held this admission as well as a decreased dose of the patient's narcotics. Patient was hydrated. His renal function has now near normal BUN of 22 and a creatinine of 1.24, sodium level is 139, potassium 3.6, magnesium 1.8. Patient is currently breath no plans he is not having any chest pain he is not having any shortness of breath is not having any nausea vomiting or diarrhea. He is afebrile, worsening pain and the morphine for him heart rate of 92, blood pressure 136/70 and he is 98% on 2 to 3 L of nasal cannula. Please see medication reconciliation for a list of current medications. Thank you for allowing us to participate in the care of this patient. The impression and plan of care has been dictated by Rosalie Robb, Nurse Practitioner as directed. Dr. Adam MD I have performed a history and physical examination and medical decision making of this patient, discussed the same with the dictator, and agree with the dictators assessment and plan as written, documented as a scribe. Based on total visit time, I have performed more than 50% of this visit. Patient Condition at Discharge: Fair Plan - Discharge Summary Discharge Rx Participant: No New Discharge Prescriptions: New Insulin Detemir (Levemir) [Levemir] 10 unit SQ HS each Nystatin 100,000 Unit/gm Powd [Mycostatin Powder] 1 applic TOPICAL BID each HYDROcodone/APAP 5-325MG [[place] 5-325] 1 each PO BID PRN #4 tab PRN Reason: Pain Lactulose [Cephulac] 20 gm PO DAILY PRN ml PRN Reason: Constipation Cyclobenzaprine [Flexeril] 5 mg PO BID PRN tab PRN Reason: Muscle Spasm Metoprolol Tartrate [Lopressor] 50 mg PO BID #60 tab INSULIN ASPART (NovoLOG) [NovoLOG (formulary)] 0 unit SQ ACHS each Continue Tamsulosin [Flomax] 0.4 mg PO HS predniSONE 15 mg PO SUTUTHSA predniSONE 10 mg PO MOWEFR Montelukast [Singulair] 10 mg PO DAILY Albuterol Sulfate [Ventolin HFA] 2 puff INHALATION RT-Q6H PRN PRN Reason: Shortness Of Breath Celecoxib [CeleBREX] 100 mg PO BID Lidocaine 5% Patch [Lidoderm 5% Patch] 1 patch TRANSDERM DIRECTED PRN PRN Reason: Pain Rosuvastatin [Crestor] 20 mg PO DAILY Ipratropium Nebulized [Atrovent Nebulized 0.2 MG/ML] 0.5 mg INHALATION RT-Q4H PRN PRN Reason: Shortness Of Breath Albuterol Nebulized [Ventolin Nebulized] 2.5 mg INHALATION RT-Q4H PRN PRN Reason: Shortness Of Breath Fluticasone/Vilanterol [Breo Ellipta 200-25 Mcg Inhaler] 1 puff INHALATION RT-DAILY rOPINIRole HCL [Requip] 0.5 mg PO HS PRN PRN Reason: RESTLESS LEGS Gabapentin [Neurontin] 400 mg PO TID #12 cap Topiramate [Topamax] 50 mg PO BID Apixaban [Eliquis] 5 mg PO BID Ketoconazole 2% Cream [Nizoral 2%] 1 applic TOPICAL DAILY Carbidopa/Levodopa/Entacapone [Stalevo 200] 1 tab PO TID Naloxegol Oxalate [Movantik] 25 mg PO DAILY Empagliflozin [Jardiance] 25 mg PO DAILY Theophylline 24 Hour [Raghavendra-24] 400 mg PO DAILY Omalizumab [Xolair] 1 dose SQ Q14D Discontinued Cyclobenzaprine [Flexeril] 10 mg PO TID Metoprolol Succinate (ER) [Toprol XL] 50 mg PO DAILY oxyCODONE-APAP 5-325MG [Percocet 5-325 mg] 1 tab PO BID PRN PRN Reason: Pain amLODIPine [Norvasc] 2.5 mg PO DAILY metFORMIN HCL ER [Glucophage XR] 1,000 mg PO PC-SUPPER Valsartan [Diovan] 160 mg PO BID Discharge Medication List Albuterol Sulfate [Ventolin HFA] 2 puff INHALATION RT-Q6H PRN 08/13/19 [History] Montelukast [Singulair] 10 mg PO DAILY 08/13/19 [History] Tamsulosin [Flomax] 0.4 mg PO HS 08/13/19 [History] predniSONE 10 mg PO MOWEFR 08/13/19 [History] predniSONE 15 mg PO SUTUTHSA 08/13/19 [History] Celecoxib [CeleBREX] 100 mg PO BID 01/07/20 [History] Lidocaine 5% Patch [Lidoderm 5% Patch] 1 patch TRANSDERM DIRECTED PRN 01/07/20 [History] Rosuvastatin [Crestor] 20 mg PO DAILY 01/16/21 [History] Topiramate [Topamax] 50 mg PO BID 01/16/21 [History] Apixaban [Eliquis] 5 mg PO BID 11/02/21 [History] Albuterol Nebulized [Ventolin Nebulized] 2.5 mg INHALATION RT-Q4H PRN 11/16/23 [History] Carbidopa/Levodopa/Entacapone [Stalevo 200] 1 tab PO TID 11/16/23 [History] Empagliflozin [Jardiance] 25 mg PO DAILY 11/16/23 [History] Fluticasone/Vilanterol [Breo Ellipta 200-25 Mcg Inhaler] 1 puff INHALATION RT- DAILY 11/16/23 [History] Ipratropium Nebulized [Atrovent Nebulized 0.2 MG/ML] 0.5 mg INHALATION RT-Q4H PRN 11/16/23 [History] Ketoconazole 2% Cream [Nizoral 2%] 1 applic TOPICAL DAILY 11/16/23 [History] Naloxegol Oxalate [Movantik] 25 mg PO DAILY 11/16/23 [History] Omalizumab [Xolair] 1 dose SQ Q14D 11/16/23 [History] Theophylline 24 Hour [Raghavendra-24] 400 mg PO DAILY 11/16/23 [History] rOPINIRole HCL [Requip] 0.5 mg PO HS PRN 11/16/23 [History] Cyclobenzaprine [Flexeril] 5 mg PO BID PRN tab 11/20/23 [Rx] Gabapentin [Neurontin] 400 mg PO TID #12 cap 11/20/23 [Rx] HYDROcodone/APAP 5-325MG [[place] 5-325] 1 each PO BID PRN #4 tab 11/20/23 [Rx] INSULIN ASPART (NovoLOG) [NovoLOG (formulary)] 0 unit SQ ACHS each 11/20/23 [Rx] Insulin Detemir (Levemir) [Levemir] 10 unit SQ HS each 11/20/23 [Rx] Lactulose [Cephulac] 20 gm PO DAILY PRN ml 11/20/23 [Rx] Metoprolol Tartrate [Lopressor] 50 mg PO BID #60 tab 11/20/23 [Rx] Nystatin 100,000 Unit/gm Powd [Mycostatin Powder] 1 applic TOPICAL BID each 11/20/23 [Rx] Follow up Appointment(s)/Referral(s): Patrick Gutierrez DO [Primary Care Provider] - 1-2 days Lam Cannon DO [STAFF PHYSICIAN] - 1 Week Allan Ramirez MD [STAFF PHYSICIAN] - 1 Week (to follow at [facility] ) Ambulatory/Diagnostic Orders: Basic Metabolic Panel [LAB.AMB] Time Frame: 4 Days, Location: None Selected Discharge Disposition: TRANSFER TO SNF/ECF
[2023-11-20] MEDS: polyethylene glycoL 3350 17 GM POWD.PACK PO SCH (15:43)
[2023-11-20 15:47] VITALS: BP 100/63
[2023-11-20 15:50] VITALS: PULSE 91; RESP 18
[2023-11-20 16:50] LABS: Glucose,Whole Blood 106 mg/dL (70-110)
== END 2023-11-20 19:28 | DRG 682 ==
LOC: EC 15:34 → 3SCARD 18:33
PROVIDERS: ADMIT Internal Medicine; ATTEND Internal Medicine
DX: N17.0 Acute kidney failure with tubular necrosis (principal); I21.A1 Myocardial infarction type 2; E87.20 Acidosis, unspecified; N39.0 Urinary tract infection, site not specified; R78.81 Bacteremia; E86.0 Dehydration; Z68.38 Body mass index [BMI] 38.0-38.9, adult; E66.9 Obesity, unspecified; G20.A1 Parkinson's disease without dyskinesia, without mention of fluctuations; F02.80 Dementia in other diseases classified elsewhere, unspecified severity, without behavioral disturbance, psychotic disturbance, mood disturbance, and anxiety; M19.90 Unspecified osteoarthritis, unspecified site; K59.00 Constipation, unspecified; R82.71 Bacteriuria; I48.0 Paroxysmal atrial fibrillation; K21.9 Gastro-esophageal reflux disease without esophagitis; E11.9 Type 2 diabetes mellitus without complications; J44.89 Other specified chronic obstructive pulmonary disease; T46.5X5A Adverse effect of other antihypertensive drugs, initial encounter; I49.1 Atrial premature depolarization; I10 Essential (primary) hypertension; E86.1 Hypovolemia; B95.7 Other staphylococcus as the cause of diseases classified elsewhere; R29.6 Repeated falls; Z87.891 Personal history of nicotine dependence; Z79.899 Other long term (current) drug therapy; Z79.01 Long term (current) use of anticoagulants; Z79.84 Long term (current) use of oral hypoglycemic drugs; Z79.1 Long term (current) use of non-steroidal anti-inflammatories (NSAID)
CPT/HCPCS: 36415; 71046; 74018; 76770; 80048; 80053; 81001; 83036; 83605; 83735; 84484; 85025; 85610; 85730; 87040; 87086; 93005; 93306; 94640; 94760; 96361; 96365; 96366; 96375; 96376; 99285

== ENCOUNTER 2024-04-17 09:25 | Day surgery (SDC) | payer OTHER ==
[~2024-04-17 09:25] MED LIST changes: +ALPRAZolam 0.25 MG TAB PO PRN; +ALPRAZolam 0.5 MG TAB PO PRN; +ASPIRIN 325 MG TAB PO STA; +ATORVASTATIN 80 MG TAB PO STA; -DEXAMETHASONE SOD PHOSPHATE 4 MG/ML 1 ML VIAL IV ONE; -LIDOCAINE 1% (10MG/ML) FOR IV START INTRADERMA PRN; +NITROGLYCERIN SL TABS 0.4 MG TAB SUBLINGUAL PRN; -ONDANSETRON 4 MG/2 ML VIAL IVP ONE
[2024-04-17 10:23] VITALS: RESP 18; TEMP 98.2
[2024-04-17] MEDS: SODIUM CHLORIDE 0.9% 1,000 ML in EMPTY BAG 1 BAG IV SCH (10:24)
[2024-04-17] MEDS: IV FLUID CONTINUATION 1,000 ML IV ONE (10:24)
[2024-04-17 10:27] LABS: Glucose,Whole Blood 112 mg/dL (70-110)
[2024-04-17 10:42] LABS: African American GFR (CKD) 80 (>60 ml/min/1.73 sqM); Anion Gap 11 mmol/L; Blood Urea Nitrogen 26 mg/dL (9-20); Carbon Dioxide 21 mmol/L (22-30); Chloride 108 mmol/L (98-107); Glucose 117 mg/dL (74-99); Non-African American GFR(CKD) 69 (>60 ml/min/1.73 sqM); Sodium 140 mmol/L (137-145)
[2024-04-17 10:56] LABS: Basophils # (A) 0.1 k/uL (0-0.2); Basophils % (A) 0 %; Eosinophils # (A) 0.1 k/uL (0-0.7); Eosinophils % (A) 1 %; HCT 48.5 % (39.0-53.0); HGB 15.4 gm/dL (13.0-17.5); Hypochromasia Marked; Lymphocytes # (A) 2.2 k/uL (1.0-4.8); Lymphocytes % (A) 11 %; MCH 31.1 pg (25.0-35.0); MCHC 31.8 g/dL (31.0-37.0); MCV 97.9 fL (80.0-100.0); Mean Platelet Volume 7.9; Monocytes # (A) 0.9 k/uL (0-1.0); Monocytes % (A) 4 %; Neutrophils # (A) 16.1 k/uL (1.3-7.7); Neutrophils % (A) 83 %; Platelet Count 291 k/uL (150-450); RBC 4.96 m/uL (4.30-5.90); RDW 14.4 % (11.5-15.5); WBC 19.5 k/uL (3.8-10.6)
[2024-04-17] MEDS: MIDAZOLAM 2 MG/2 ML VIAL IVP ONE (12:41)
[2024-04-17] MEDS: fentaNYL (PF) 50 MCG/1 ML VIAL IVP ONE (12:41)
[2024-04-17] MEDS: LIDOCAINE 1% INJ 10MG/ML (20 ML MDV) SQ ONE (12:43)
[2024-04-17] MEDS: VERAPAMIL SYRINGE (5 MG/10 ML) INTRAARTER ONE (12:45)
[2024-04-17] MEDS: HEPARIN SODIUM 1,000 UN/ML (10ML VL) IVP ONE (12:51)
[2024-04-17] MEDS: HEPARIN SODIUM,PORCINE (1 ML) 2,500 UNIT in SODIUM CHLORIDE 0.9% 250 ML IRRIGATION PRN (12:53)
[2024-04-17] MEDS: HEPARIN SODIUM,PORCINE 10,000 UNIT in SODIUM CHLORIDE 0.9% 1,000 ML IRRIGATION PRN (12:53)
[2024-04-17] MEDS: IOPAMIDOL-300 100ML BTL INJ ONE (12:59)
--- NOTE | 2024-04-17 13:10 | P.CARDCATH ---
Date of Procedure: 04/17/24 Description of Procedure: DIAGNOSTIC CORONARY ANGIOGRAPHY and LEFT HEART CATH REPORT PROCEDURES PERFORMED: Left heart catheterization Selective coronary angiography Moderate conscious sedation 16 mins [Ultrasound assisted] Right radial access INDICATION: Abnormal Lexiscan nuclear stress test 63-year-old with past medical history of atrial fibrillation status post cryoablation, morbid obesity, underwent a Lexiscan nuclear stress test on an outpatient basis with cardiology. This showed reversible perfusion defect in the inferolateral aspect of the myocardium. For this he was scheduled for an outpatient cardiac catheterization. CONSENT: I have explained the procedural steps of above-mentioned procedures in layman's terms to the patient. I discussed the risks (including but not limited to stroke, emergent vascular or cardiac surgery or ), benefits and alternative therapies for the above-mentioned procedure. I discussed the risks of sedation/analgesia and blood product administration (if indicated). The patient has indicated understanding and acceptance of these risks. Conscious Sedation: Patient's ECG, heart rate, blood pressure, pulse oximetry were monitored throughout the duration of procedure under my direct supervision. [2] mg Versed and [50] mcg Fentanyl were used for induction of moderate conscious sedation. Total duration of moderate concious sedation 16 minutes. PROCEDURE: After explaining the risks, benefits and alternatives of the above mentioned procedures in detail to the patient, informed consent was obtained. Patient was taken to the catheterization lab, prepped and draped in usual sterile fashion using universal precuations. Ultrasound was used to identify the radial artery. 1% lidocaine was infiltrated over the right radial artery. A 6-Kittitian sheath was placed and secured in the right radial artery using modified Seldinger technique. The sheath was flushed and 5 mg verapamil was administered intra-arterially. J tipped wire was advanced under fluoroscopic guidance. Once the wire tip reached aortic root 7500 units of IV heparin was given. Over the wire JR4 diagnostic catheter was advanced. The wire in place the catheter was manipulated to cross the aortic valve and entered into LV under fluoroscopy guidance. The wire was removed and the catheter was flushed. LV pressures were obtained and pullback was performed under fluoroscopy. Catheter was manipulated to selectively engage the right coronary ostium. Right coronary angiography was performed in different angiographic projections. The JR4 diagnostic catheter was exchanged for a JL 3.5 diagnostic catheter over the J-wire. The wire was removed, catheter was flushed and manipulated under fluoroscopy to selectively engaged the left coronary ostium. Left coronary angioplasty was performed in different angiographic projections. Catheter was removed over the wire. Radial sheath was flushed. The right radial sheath was removed and a TR band was placed with excellent patent hemostasis was achieved. The patient tolerated the procedure well. Patient was transported back to the post catheterization holding area in stable condition. Angiographic images were reviewed in detail. Challenges: None Complication: None Estimated blood loss: Less than 10 mL Total radiation 260 mGy Dye used: Isovue 50 mL HEMODYNAMICS: Aortic Pressure: 105/70 mmHg. LV pressure: 110/10 mmHg. LVEDP 16 mmHg. There was no significant gradient across the aortic valve. SELECTIVE CORONARY ARTERIOGRAPHY: LEFT MAIN: The left main is short and large caliber vessel. It bifurcates into the LAD and circumflex. Left main appears angiographically normal. LEFT ANTERIOR DESCENDING CORONARY ARTERY: LAD is a large caliber vessel which wraps around to the apex. Proximal LAD appears angiographically normal. Mid LAD appears angiographically normal. Distal LAD appears angiographically normal. LAD gives rise to 2 diagonal branches, moderate caliber, appears angiographically patent. LEFT CIRCUMFLEX CORONARY ARTERY: LCx is nondominant vessel. It is large caliber. Proximal LCx is angiographically patent. Gives rise to 2 small OM branches. Mid LCx gives rise to a medium size OM3 branch which is patent. After giving OM3 branch, LCx becomes a large AV groove vessel which gives further small branches and the medium caliber PL branches and PDA. They appear angiographically patent. RIGHT CORONARY ARTERY: Nondominant, small caliber, gives rise to RV marginal branch, RCA and RV marginal branch appears angiographically patent. IMPRESSION: Angiographically normal coronary arteries as described above. Normal left sided filling pressures PLAN: Aggressive risk factor modification per most recent ACC/AHA guidelines. 150 cc fluids for 4 hours Discharge home in 4 hours Follow-up in the office in 1-2 weeks. Performing Physician Junior Gant MD, FACC, RPVI
[2024-04-17] MEDS ORDERED: RX INFO: IV CONTRAST WAS GIVEN 1 EACH MISC MISCELLANE PRN (13:11)
[2024-04-17] MEDS ORDERED: SODIUM CHLORIDE 0.9% 1,000 ML IV SCH (13:15)
[2024-04-17 15:15] VITALS: BP 128/64; PULSE 67
== END 2024-04-17 16:01 | disposition home or self-care (01) ==
LOC: CATHCVL 09:25
PROVIDERS: ATTEND Student in an Organized Health Care Education/Training Program
DX: I25.10 Atherosclerotic heart disease of native coronary artery without angina pectoris (principal); I48.0 Paroxysmal atrial fibrillation; I10 Essential (primary) hypertension; F17.210 Nicotine dependence, cigarettes, uncomplicated; E66.01 Morbid (severe) obesity due to excess calories; Z68.37 Body mass index [BMI] 37.0-37.9, adult; Z88.0 Allergy status to penicillin; Z79.899 Other long term (current) drug therapy
CPT/HCPCS: 80048; 85025; 93458; 99152; J2250; J1644 ×3; J2003; Q9967; J3010

== ENCOUNTER 2024-09-17 11:11 | Inpatient (IN) | payer OTHER, MEDICARE ==
[2024-09-17] MEDS: SODIUM CHLORIDE 0.9% 1,000 ML IV STA (11:42)
[2024-09-17 11:51] LABS: Basophils # (A) 0.04 10*3/uL (0.00-0.10); Basophils % (A) 0.3 %; Eosinophils # (A) 0.25 10*3/uL (0.04-0.35); Eosinophils % (A) 2.1 %; HGB 14.5 g/dL (13.0-17.0); Lymphocytes # (A) 2.51 10*3/uL (0.90-5.00); Lymphocytes % (A) 20.8 %; MCH 30.3 pg (27.0-32.0); MCHC 32.2 g/dL (32.0-37.0); MCV 93.9 fL (80.0-97.0); Mean Platelet Volume 11.1 fL (9.5-12.2); Neutrophils # (A) 7.96 10*3/uL (1.80-7.70); Neutrophils % (A) 66.1 %; Platelet Count 220 10*3/uL (140-440); RBC 4.79 10*6/uL (4.40-5.60); RDW 13.9 % (11.5-14.5); WBC 12.04 10*3/uL (4.50-10.00)
--- NOTE | 2024-09-17 11:55 | XR ---
EXAMINATION TYPE: XR chest 2V DATE OF EXAM: 09/17/2024 11:50 AM COMPARISON: Chest radiographs from 04/13/2024 TECHNIQUE: XR chest 2V Frontal and lateral views of the chest. CLINICAL INDICATION:Male, 63 years old with history of Chest Pain; FINDINGS: Lungs/Pleura: There is no evidence of pleural effusion, focal consolidation, or pneumothorax. Pulmonary vascularity: Unremarkable. Heart/mediastinum: Cardiomediastinal silhouette is unremarkable. Musculoskeletal: No acute osseous pathology. DISH of the thoracic spine. Multilevel degenerative disc disease. IMPRESSION: No acute cardiopulmonary disease/process. [facility], , 09/17/2024 11:52 AM
--- NOTE | 2024-09-17 11:55 | ED ---
General Adult HPI - General Chief complaint: Recheck/Abnormal Lab/Rx Stated complaint: Abn BP Time Seen by Provider: 09/17/24 11:15 Source: patient, family, RN notes reviewed, old records reviewed Mode of arrival: ambulatory Limitations: no limitations - History of Present Illness Initial comments: This is a 63-year-old male who presents to the emergency department with chronic back pain history as well as hypertension. Patient states he took his blood pressure medications this morning as well as a Percocet which he only does every few days. Patient states he went to his doctor's office and they took a blood pressure and it was low so they sent him to the emergency department. Patient denies any lightheadedness or dizziness. Patient denies chest pain difficulty breathing shortness of breath. Patient denies has any palpitations. Patient d enies abdominal pain patient has nausea vomiting diarrhea. Patient states his intake of food and drink been good. - Related Data Home Medications Medication Instructions Recorded Confirmed Albuterol Sulfate [Ventolin HFA] 2 puff INHALATION RT-Q4H PRN 08/13/19 09/17/24 Montelukast [Singulair] 10 mg PO HS 08/13/19 09/17/24 Tamsulosin [Flomax] 0.4 mg PO HS 08/13/19 09/17/24 Rosuvastatin [Crestor] 20 mg PO DAILY 01/16/21 09/17/24 Topiramate [Topamax] 50 mg PO BID 01/16/21 09/17/24 Apixaban [Eliquis] 5 mg PO BID 11/02/21 09/17/24 Albuterol Nebulized [Ventolin 2.5 mg INHALATION RT-Q4H PRN 11/16/23 09/17/24 Nebulized] Empagliflozin [Jardiance] 25 mg PO DAILY 11/16/23 09/17/24 Fluticasone/Vilanterol [Breo 1 puff INHALATION RT-DAILY 11/16/23 09/17/24 Ellipta 200-25 Mcg Inhaler] Ipratropium Nebulized [Atrovent 0.5 mg INHALATION RT-Q4H PRN 11/16/23 09/17/24 Nebulized 0.2 MG/ML] Omalizumab [Xolair] 1 dose SQ Q14D 11/16/23 09/17/24 Theophylline 24 Hour [Raghavendra-24] 400 mg PO DAILY 11/16/23 09/17/24 Calcium Carbonate [Calcium] 600 mg PO DAILY 04/06/24 09/17/24 Metoprolol Succinate [Toprol XL] 50 mg PO DAILY 04/06/24 09/17/24 Valsartan [Diovan] 160 mg PO HS 04/06/24 09/17/24 Carbidopa/Levodopa/Entacapone 2 tab PO TID 09/17/24 09/17/24 [Stalevo 200] Cholecalciferol (Vitamin D3) 50 mcg PO DAILY 09/17/24 09/17/24 [Vitamin D3 (50 Mcg = 2000 Iu)] Gabapentin [Neurontin] 400 mg PO BID 09/17/24 09/17/24 Insulin Degludec [Tresiba 10 units SQ HS 09/17/24 09/17/24 Flextouch U-200 Pen] Ketoconazole 2% Cream [Nizoral 2%] 1 applic TOPICAL DAILY PRN 09/17/24 09/17/24 Lactulose [Cephulac] 20 gm PO BID PRN 09/17/24 09/17/24 Nystatin 100,000 Unit/gm Powd 1 applic TOPICAL BID PRN 09/17/24 09/17/24 [Mycostatin Powder] oxyCODONE-APAP 5-325MG [Percocet 1 tab PO BID PRN 09/17/24 09/17/24 5-325 mg] predniSONE 5 mg PO TUTH 09/17/24 09/17/24 predniSONE 10 mg PO SUMOWEFRSA 09/17/24 09/17/24 Previous Rx's Medication Instructions Recorded Lidocaine 5% Patch [Lidoderm 5% 1 patch TRANSDERM DAILY PRN #0 11/20/23 Patch] Allergies Allergy/AdvReac Type Severity Reaction Status Date / Time Penicillins Allergy Rash/Hives Verified 09/17/24 12:01 Review of Systems ROS Statement: Those systems with pertinent positive or pertinent negative responses have been documented in the HPI. ROS Other: All systems not noted in ROS Statement are negative. Past Medical History Past Medical History: Atrial Fibrillation, Asthma, COPD, Diabetes Mellitus, GERD/Reflux, Hyperlipidemia, Hypertension, Osteoarthritis (OA), Prostate D isorder Additional Past Medical History / Comment(s): environmental allergies, back pain, frequent urination., states aortic valve enlarged. PARKINSON'S. LO from dehydration in 11/21/23- numbers improved. bph. RLS. recent abnormal stress test per pt's . recently rescheduled for heart cath due to productive cough, seen and treated by Dr Alvarez. DDD History of Any Multi-Drug Resistant Organisms: None Reported Past Surgical History: Tonsillectomy Additional Past Surgical History / Comment(s): Deviated Septum, Sharon Fundiplication, nerve ablation on back. , colonoscopy, BILAT CATARACTS REMOVED WITH LENS IMPLANTS, CYSTOSCOPY Past Anesthesia/Blood Transfusion Reactions: Previous Problems w/ Anesthesia Additional Past Anesthesia/Blood Transfusion Reaction / Comment(s): difficult time "coming out" of anesthesia-states he was told due to asthma Past Psychological History: No Psychological Hx Reported Smoking Status: Former smoker - Past Family History Father Family Medical History: Myocardial Infarction (PR) Mother Family Medical History: Cancer General Exam - General Exam Comments Initial Comments: GENERAL: Patient is well-developed and well-nourished. Patient is nontoxic and well- hydrated and is in no acute distress. ENT: Neck is soft and supple. No significant lymphadenopathy is noted. Oropharynx is clear. Moist mucous membranes. Neck has full range of motion without eliciting any pain. EYES: The sclera were anicteric and conjunctiva were pink and moist. Extraocular movements were intact and pupils were equal round and reactive to light. Eyelids were unremarkable. PULMONARY: Unlabored respirations. Good breath sounds bilaterally. No audible rales rhonchi or wheezing was noted. CARDIOVASCULAR: There is a regular rate and rhythm without any murmurs gallops or rubs. ABDOMEN: Soft and nontender with normal bowel sounds. SKIN: Skin is clear with no lesions or rashes and otherwise unremarkable. NEUROLOGIC: Patient is alert and oriented x3. Cranial nerves II through XII are grossly intact. Motor and sensory are also intact. Normal speech, volume and content. Symmetrical smile. MUSCULOSKELETAL: Normal extremities with adequate strength and full range of motion. LYMPHATICS: No significant lymphadenopathy is noted PSYCHIATRIC: Normal psychiatric evaluation. Limitations: no limitations Course Vital Signs 09/17/24 09/17/24 09/17/24 11:15 11:37 11:57 Temperature 97.3 F L Pulse Rate 87 75 65 Respiratory 20 20 20 Rate Blood Pressure 73/30 79/44 74/40 O2 Sat by Pulse 98 94 L 94 L Oximetry 09/17/24 09/17/24 09/17/24 12:15 12:32 12:50 Temperature Pulse Rate 61 65 67 Respiratory 20 20 18 Rate Blood Pressure 70/39 82/40 79/50 O2 Sat by Pulse 96 96 98 Oximetry 09/17/24 13:33 Temperature Pulse Rate 56 L Respiratory 20 Rate Blood Pressure 86/38 O2 Sat by Pulse 98 Oximetry Medical Decision Making - Medical Decision Making EKG is interpreted by myself. EKG shows a sinus rhythm at 76 bpm SC interval is 203 QRS is 102 QT interval 382 QTc is 413. Patient's EKG shows no ST segment elevation or depression. Was pt. sent in by a medical professional or institution (, TYE, DIRECTOR OF PLANNING, urgent care, hospital, or halfway...) When possible be specific @ -No Did you speak to anyone other than the patient for history (EMS, parent, family, police, friend...)? What history was obtained from this source @ -No Did you review nursing and triage notes (agree or disagree)? Why? @ -I reviewed and agree with nursing and triage notes Were old charts reviewed (outside hosp., previous admission, EMS record, old EKG, old radiological studies, urgent care reports/EKG's, halfway records)? Report findings @ -No old charts were reviewed Differential Diagnosis? @ -Orthostatic hypotension, dehydration, adverse reaction to medication, sepsis, this is not an all-inclusive list EKG interpreted by me (3pts min.). @ -As above X-rays interpreted by me (1pt min.). @ -Chest x-ray shows no acute abnormality CT interpreted by me (1pt min.). @ -None done U/S interpreted by me (1pt. min.). @ -None done What testing was considered but not performed or refused? (CT, X-rays, U/S, labs)? Why? @ -None What meds were considered but not given or refused? Why? @ -None Did you discuss the management of the patient with other professionals (professionals i.e. TYE Wong, DIRECTOR OF PLANNING, lab, RT, psych nurse, social services director, emergency detail driver, teacher, intelligence officer basic, business case analyst)? Give summary @ -I spoke with [facility] hospitalist and they agreed to admit the patient admit the patient wrote admitting orders Was smoking cessation discussed for >3mins.? @ -No Was critical care preformed (if so, how long)? @ -No Were there social determinants of health that impacted care today? How? (Homelessness, low income, unemployed, alcoholism, drug addiction, transportation, low edu. Level, literacy, decrease access to med. care, [facility], rehab)? @ -No Was there de-escalation of care discussed even if they declined (Discuss DNR or withdrawal of care, Hospice)? DNR status @ -No What co-morbidities impacted this encounter? (DM, HTN, Smoking, COPD, CAD, Cancer, CVA, ARF, Chemo, Hep., AIDS, mental health diagnosis, sleep apnea, morbid obesity)? @ -None Was patient admitted / discharged? Hospital course, mention meds given and route, prescriptions, significant lab abnormalities, going to OR and other pertinent info. @ -Patient's lab work came back relatively normal except for an elevated lactic. Patient received 3 L of normal saline. Patient's pressure came up to systolic in the 90s. Patient still remained asymptomatic. I spoke with [facility] hospitalist and they agreed to admit the patient Undiagnosed new problem with uncertain prognosis? @ -No Drug Therapy requiring intensive monitoring for toxicity (Heparin, Nitro, Insulin, Cardizem)? @ -No Were any procedures done? @ -No Diagnosis/symptom? @ -Hypotension Acute, or Chronic, or Acute on Chronic? @ -Acute Uncomplicated (without systemic symptoms) or Complicated (systemic symptoms)? @ -Complicated Side effects of treatment? @ -No Exacerbation, Progression, or Severe Exacerbation? @ -No Poses a threat to life or bodily function? How? (Chest pain, USA, PR, pneumonia, PE, COPD, DKA, ARF, appy, cholecystitis, CVA, Diverticulitis, Homicidal, Suicidal, threat to staff... and all critical care pts) @ -Yes this could lead to poor perfusion and endorgan dysfunction - Lab Data Result diagrams: 09/17/24 11:44 09/17/24 11:44 Lab Results 09/17/24 09/17/24 09/17/24 Range/Units 11:44 11:44 11:44 WBC 12.04 H (4.50-10.00) 10*3/uL RBC 4.79 (4.40-5.60) 10*6/uL Hgb 14.5 (13.0-17.0) g/dL Hct 45.0 (39.6-50.0) % MCV 93.9 (80.0-97.0) fL MCH 30.3 (27.0-32.0) pg MCHC 32.2 (32.0-37.0) g/dL Plt Count 220 (140-440) 10*3/uL MPV 11.1 (9.5-12.2) fL Immature Gran % (Auto) 0.7 % Neutrophils % 66.1 % Lymphocytes % 20.8 % Monocytes % 10.0 % Eosinophils % 2.1 % Basophils % 0.3 % Immature Gran # 0.08 H (0.00-0.04) 10*3/uL Neutrophils # 7.96 H (1.80-7.70) 10*3/uL Lymphocytes # 2.51 (0.90-5.00) 10*3/uL Monocytes # 1.20 H (0.20-1.00) 10*3/uL Eosinophils # 0.25 (0.04-0.35) 10*3/uL Basophils # 0.04 (0.00-0.10) 10*3/uL PT 11.5 (10.0-12.5) sec INR 1.0 (<1.2) APTT 22.8 (22.0-30.0) sec Sodium (137-145) mmol/L Potassium (3.5-5.1) mmol/L Chloride (98-107) mmol/L Carbon Dioxide (22-30) mmol/L Anion Gap mmol/L BUN (9-20) mg/dL Creatinine (0.66-1.25) mg/dL Est GFR (CKD-EPI)AfAm (>60 ml/min/1.73 sqM) Est GFR (CKD-EPI)NonAf (>60 ml/min/1.73 sqM) Glucose (74-99) mg/dL Plasma Lactic Acid Momo (0.7-2.0) mmol/L Calcium (8.4-10.2) mg/dL Magnesium (1.6-2.3) mg/dL Total Bilirubin (0.2-1.3) mg/dL AST (17-59) U/L ALT (4-49) U/L Alkaline Phosphatase (38-126) U/L Troponin I (0.000-0.034) ng/mL Total Protein (6.3-8.2) g/dL Albumin (3.5-5.0) g/dL Urine Color Dark Brown Urine Appearance Cloudy (Clear) Urine pH 5.5 (5.0-8.0) Ur Specific Acra 1.030 (1.001-1.035) Urine Protein 1+ H (Negative) Urine Glucose (UA) 4+ H (Negative) Urine Ketones Negative (Negative) Urine Blood Large H (Negative) Urine Nitrite Negative (Negative) Urine Bilirubin Negative (Negative) Urine Urobilinogen <2.0 (<2.0) mg/dL Ur Leukocyte Esterase Negative (Negative) Urine RBC >182 H (0-5) /hpf Urine WBC 7 H (0-5) /hpf Ur Squamous Epith Cells 4 (0-4) /hpf Urine Bacteria Occasional H (None) /hpf Urine Mucus Occasional H (None) /hpf 09/17/24 09/17/24 09/17/24 Range/Units 11:44 11:44 11:44 WBC (4.50-10.00) 10*3/uL RBC (4.40-5.60) 10*6/uL Hgb (13.0-17.0) g/dL Hct (39.6-50.0) % MCV (80.0-97.0) fL MCH (27.0-32.0) pg MCHC (32.0-37.0) g/dL Plt Count (140-440) 10*3/uL MPV (9.5-12.2) fL Immature Gran % (Auto) % Neutrophils % % Lymphocytes % % Monocytes % % Eosinophils % % Basophils % % Immature Gran # (0.00-0.04) 10*3/uL Neutrophils # (1.80-7.70) 10*3/uL Lymphocytes # (0.90-5.00) 10*3/uL Monocytes # (0.20-1.00) 10*3/uL Eosinophils # (0.04-0.35) 10*3/uL Basophils # (0.00-0.10) 10*3/uL PT (10.0-12.5) sec INR (<1.2) APTT (22.0-30.0) sec Sodium 140 (137-145) mmol/L Potassium 3.9 (3.5-5.1) mmol/L Chloride 107 (98-107) mmol/L Carbon Dioxide 23 (22-30) mmol/L Anion Gap 10 mmol/L BUN 23 H (9-20) mg/dL Creatinine 1.30 H (0.66-1.25) mg/dL Est GFR (CKD-EPI)AfAm 66 (>60 ml/min/1.73 sqM) Est GFR (CKD-EPI)NonAf 57 (>60 ml/min/1.73 sqM) Glucose 109 H (74-99) mg/dL Plasma Lactic Acid Momo 2.8 H* (0.7-2.0) mmol/L Calcium 10.0 (8.4-10.2) mg/dL Magnesium 2.3 (1.6-2.3) mg/dL Total Bilirubin 0.8 (0.2-1.3) mg/dL AST 17 (17-59) U/L ALT 7 (4-49) U/L Alkaline Phosphatase 92 (38-126) U/L Troponin I <0.012 (0.000-0.034) ng/mL Total Protein 6.2 L (6.3-8.2) g/dL Albumin 3.9 (3.5-5.0) g/dL Urine Color Urine Appearance (Clear) Urine pH (5.0-8.0) Ur Specific Acra (1.001-1.035) Urine Protein (Negative) Urine Glucose (UA) (Negative) Urine Ketones (Negative) Urine Blood (Negative) Urine Nitrite (Negative) Urine Bilirubin (Negative) Urine Urobilinogen (<2.0) mg/dL Ur Leukocyte Esterase (Negative) Urine RBC (0-5) /hpf Urine WBC (0-5) /hpf Ur Squamous Epith Cells (0-4) /hpf Urine Bacteria (None) /hpf Urine Mucus (None) /hpf Disposition Clinical Impression: Hypotension, Dehydration Disposition: ADMITTED IP TO THIS [facility] Referrals: Patrick Gutierrez DO [Primary Care Provider] - 1-2 days Time of Disposition: 14:09
[2024-09-17 12:03] LABS: Partial Thromboplastin Time 22.8 sec (22.0-30.0); Prothrombin Time 11.5 sec (10.0-12.5)
[2024-09-17 12:10] LABS: ALT 7 U/L (4-49); African American GFR (CKD) 66 (>60 ml/min/1.73 sqM); Albumin 3.9 g/dL (3.5-5.0); Anion Gap 10 mmol/L; Blood Urea Nitrogen 23 mg/dL (9-20); Carbon Dioxide 23 mmol/L (22-30); Chloride 107 mmol/L (98-107); Glucose 109 mg/dL (74-99); Non-African American GFR(CKD) 57 (>60 ml/min/1.73 sqM); Sodium 140 mmol/L (137-145); Total Bilirubin 0.8 mg/dL (0.2-1.3); Total Protein 6.2 g/dL (6.3-8.2)
[2024-09-17 12:14] LABS: AST 17 U/L (17-59); Magnesium 2.3 mg/dL (1.6-2.3); Potassium 3.9 mmol/L (3.5-5.1)
[2024-09-17 12:15] LABS: Alkaline Phosphatase 92 U/L (38-126)
[2024-09-17] MEDS: SODIUM CHLORIDE 0.9% 1,000 ML IV ONE ×3 (12:24→14:28)
[2024-09-17 12:37] LABS: Appearance,Urine Cloudy (Clear); Bacteria,Urine Occasional /hpf; Bilirubin,Urine Negative (Negative); Blood,Urine Large (Negative); Color,Urine Dark Brown; Glucose,Urine (UA) 4+ (Negative); Ketones,Urine Negative (Negative); Leukocyte Esterase,Urine Negative (Negative); Mucus,Urine Occasional /hpf; Nitrite,Urine Negative (Negative); PH, Urine 5.5 (5.0-8.0); Protein,Urine 1+ (Negative); RBC,Urine >182 /hpf (0-5); Squamous Epithelial Cell,Urine 4 /hpf (0-4); Urobilinogen,Urine <2.0 mg/dL (<2.0); WBC,Urine 7 /hpf (0-5)
[2024-09-17] MEDS ORDERED: DEXTROSE 50% SYRINGE 50 ML IVP PRN ×2 (17:55)
[2024-09-17] MEDS ORDERED: NYSTATIN 100,000 UNIT/GM POWD 15 GM TOPICAL PRN (19:05)
[2024-09-17] MEDS ORDERED: LACTULOSE 20 GM/30 ML CUP PO PRN (19:05)
[2024-09-17] MEDS ORDERED: ALBUTEROL HFA INHALER INHALATION PRN (19:05)
[2024-09-17] MEDS ORDERED: CLOTRIMAZOLE 1% CREAM 30 GM TUBE TOPICAL PRN (19:05)
[2024-09-17] MEDS ORDERED: OMALIZUMAB 150 MG/ML SYRINGE SQ SCH (19:15)
[2024-09-17 20:08] LABS: Glucose,Whole Blood 90 mg/dL (70-110)
[2024-09-17] MEDS: ALBUTEROL NEBULIZED 2.5 MG/3 ML INHALATION PRN (20:26)
[2024-09-17] MEDS: INSULIN GLARGINE (LANTUS) 100 UNIT/ML SYR SQ SCH (21:07)
[2024-09-17] MEDS: INSULIN LISPRO (HumaLOG) 100 UNIT/ML 10 mL VL SQ SCH (21:07)
--- NOTE | 2024-09-17 21:16 | P.HPIM ---
History of Present Illness H&P Date: 09/17/24 Chief Complaint: Hypotension Patient is a 63-year-old male with a past medical history of asthma/COPD on prednisone, paroxysmal atrial fibrillation on anticoagulation with Eliquis, hypertension, hyperlipidemia, chronic back pain, Parkinson's disease, RLS and prior history of smoking. Patient was at [facility] where he was found to be hypotensive with SBP in 70s. He was sent to ER for further evaluation Patient did take his blood pressure medications metoprolol, valsartan this morning along with Percocet which he only takes every few days. Otherwise denied any recent illnesses. No headache or dizziness or lightheadedness. No chest pain or shortness of breath no palpitations. No nausea vomiting abdominal pain or diarrhea. Denied any increased frequency of urination. Patient did have previous urological procedure and was told he has renal stones. Patient also prednisone dependent on daily basis. On admission blood pressure 73/30 pulse is 87 respiration 20 and pulse ox 98% on room air. Laboratory data showed WBC 12.0 hemoglobin 14.5 and platelets 220 sodium 140 potassium 3.9 chloride 107 bicarb is 23 BUN 23 and creatinine 1.3 and blood sugar 109 and lactic acid 2.8 liver enzymes are not elevated albumin 3.9 urinalysis showed 1+ protein 4+ glucose large blood, RBCs greater than 182 WBC 7 and squamous epithelial cells 4. Patient was given 2 L normal saline bolus with improvement in systolic blood pressure to 90s. Review of Systems Constitutional: Patient denies any fever or chills . No generalized weakness or weight loss. Abdomen: Patient denied nausea vomiting and diarrhea and abdominal pain. Cardiovascular: Patient denies any chest pain or short of breath no palpitations. Respiratory: patient denied any cough or sputum production. No shortness of breath Neurologic: Patient denied any numbness or tingling. no headache. Musculoskeletal: Patient denies any complaints of joint swelling or deformity. Skin: Negative Psychiatric: Negative Endocrine: No heat or cold intolerance. No recent weight gain. Genitourinary: No dysuria or hematuria. All other 14 point ROS negative except the above Past Medical History Past Medical History: Atrial Fibrillation, Asthma, COPD, Diabetes Mellitus, GERD/Reflux, Hyperlipidemia, Hypertension, Osteoarthritis (OA), Prostate Disorder Additional Past Medical History / Comment(s): environmental allergies, back pain, frequent urination., states aortic valve enlarged. PARKINSON'S. LO from dehydration in 11/21/23- numbers improved. bph. RLS. recent abnormal stress test per pt's . recently rescheduled for heart cath due to productive cough, seen and treated by Dr Alvarez. DDD History of Any Multi-Drug Resistant Organisms: None Reported Past Surgical History: Heart Catheterization, Tonsillectomy Additional Past Surgical History / Comment(s): Deviated Septum, Sharon Fundiplication, nerve ablation on back. , colonoscopy, BILAT CATARACTS REMOVED WITH LENS IMPLANTS, CYSTOSCOPY Past Anesthesia/Blood Transfusion Reactions: Previous Problems w/ Anesthesia Additional Past Anesthesia/Blood Transfusion Reaction / Comment(s): difficult time "coming out" of anesthesia-states he was told due to asthma Past Psychological History: No Psychological Hx Reported Smoking Status: Former smoker Past Alcohol Use History: None Reported Additional Past Alcohol Use History / Comment(s): quit smoking 27 years ago. (1993), hx of 1ppd, smoked over 10 years. Past Drug Use History: None Reported - Past Family History Father Family Medical History: Myocardial Infarction ([place]) Mother Family Medical History: Cancer Medications and Allergies Home Medications Medication Instructions Recorded Confirmed Type Albuterol Sulfate [Ventolin HFA] 2 puff INHALATION RT-Q4H PRN 08/13/19 09/17/24 History Montelukast [Singulair] 10 mg PO HS 08/13/19 09/17/24 History Tamsulosin [Flomax] 0.4 mg PO HS 08/13/19 09/17/24 History Rosuvastatin [Crestor] 20 mg PO DAILY 01/16/21 09/17/24 History Topiramate [Topamax] 50 mg PO BID 01/16/21 09/17/24 History Apixaban [Eliquis] 5 mg PO BID 11/02/21 09/17/24 History Albuterol Nebulized [Ventolin 2.5 mg INHALATION RT-Q4H PRN 11/16/23 09/17/24 History Nebulized] Empagliflozin [Jardiance] 25 mg PO DAILY 11/16/23 09/17/24 History Fluticasone/Vilanterol [Breo 1 puff INHALATION RT-DAILY 11/16/23 09/17/24 History Ellipta 200-25 Mcg Inhaler] Ipratropium Nebulized [Atrovent 0.5 mg INHALATION RT-Q4H PRN 11/16/23 09/17/24 History Nebulized 0.2 MG/ML] Omalizumab [Xolair] 1 dose SQ Q14D 11/16/23 09/17/24 History Theophylline 24 Hour [Raghavendra-24] 400 mg PO DAILY 11/16/23 09/17/24 History Lidocaine 5% Patch [Lidoderm 5% 1 patch TRANSDERM DAILY PRN #0 11/20/23 09/17/24 Rx Patch] Calcium Carbonate [Calcium] 600 mg PO DAILY 04/06/24 09/17/24 History Metoprolol Succinate [Toprol XL] 50 mg PO DAILY 04/06/24 09/17/24 History Valsartan [Diovan] 160 mg PO HS 04/06/24 09/17/24 History Carbidopa/Levodopa/Entacapone 2 tab PO TID 09/17/24 09/17/24 History [Stalevo 200] Cholecalciferol (Vitamin D3) 50 mcg PO DAILY 09/17/24 09/17/24 History [Vitamin D3 (50 Mcg = 2000 Iu)] Gabapentin [Neurontin] 400 mg PO BID 09/17/24 09/17/24 History Insulin Degludec [Tresiba 10 units SQ HS 09/17/24 09/17/24 History Flextouch U-200 Pen] Ketoconazole 2% Cream [Nizoral 2%] 1 applic TOPICAL DAILY PRN 09/17/24 09/17/24 History Lactulose [Cephulac] 20 gm PO BID PRN 09/17/24 09/17/24 History Nystatin 100,000 Unit/gm Powd 1 applic TOPICAL BID PRN 09/17/24 09/17/24 History [Mycostatin Powder] oxyCODONE-APAP 5-325MG [Percocet 1 tab PO BID PRN 09/17/24 09/17/24 History 5-325 mg] predniSONE 5 mg PO TUTH 09/17/24 09/17/24 History predniSONE 10 mg PO SUMOWEFRSA 09/17/24 09/17/24 History Allergies Allergy/AdvReac Type Severity Reaction Status Date / Time Penicillins Allergy Rash/Hives Verified 09/17/24 12:01 Physical Exam Vitals: Vital Signs Temp Pulse Pulse Resp BP BP Pulse Ox 09/17/24 20:52 144/70 09/17/24 20:38 74 09/17/24 20:28 72 09/17/24 18:01 97.9 F 72 18 88/51 98 09/17/24 17:22 65 20 109/51 94 L 09/17/24 16:30 62 20 105/88 99 09/17/24 15:47 91/45 09/17/24 15:25 56 L 20 80/44 94 L 09/17/24 14:29 58 L 20 126/49 96 09/17/24 13:33 56 L 20 86/38 98 09/17/24 12:50 67 18 79/50 98 09/17/24 12:32 65 20 82/40 96 09/17/24 12:15 61 20 70/39 96 09/17/24 11:57 65 20 74/40 94 L 09/17/24 11:37 75 20 79/44 94 L 09/17/24 11:15 97.3 F L 87 20 73/30 98 Intake and Output 09/17/24 09/17/24 09/17/24 06:59 14:59 22:59 Other: Weight 127.006 kg 127.006 kg PHYSICAL EXAMINATION: Patient is lying in the bed comfortably, no acute distress, awake alert and oriented.. HEENT: Normocephalic. Neck is supple. Pupils reactive. Nostrils clear. Oral cavity is moist. Neck reveals no JVD, carotid bruits, or thyromegaly. CHEST EXAMINATION: Trachea is central. Symmetrical expansion. Lung torre clear to auscultation and percussion. CARDIAC: Normal S1, S2 with no gallops. No murmurs ABDOMEN: Soft. Bowel sounds normal. No organomegaly. No abdominal bruits. Extremities: reveal no edema. No clubbing or cyanosis Neurologically awake, alert, oriented x3 with well-coordinated movements. No focal deficits noted Skin: No rash or skin lesions. Psychiatric: Coperative. Nonsuicidal Musculoskeletal: No joint swelling or deformity. Normal range of motion. Results CBC & Chem 7: 09/17/24 11:44 09/17/24 11:44 Labs: Abnormal Lab Results - Last 24 Hours (Table) 09/17/24 09/17/24 09/17/24 Range/Units 11:44 11:44 11:44 WBC 12.04 H (4.50-10.00) 10*3/uL Immature Gran # 0.08 H (0.00-0.04) 10*3/uL Neutrophils # 7.96 H (1.80-7.70) 10*3/uL Monocytes # 1.20 H (0.20-1.00) 10*3/uL BUN 23 H (9-20) mg/dL Creatinine 1.30 H (0.66-1.25) mg/dL Glucose 109 H (74-99) mg/dL Plasma Lactic Acid Momo (0.7-2.0) mmol/L Total Protein 6.2 L (6.3-8.2) g/dL Urine Protein 1+ H (Negative) Urine Glucose (UA) 4+ H (Negative) Urine Blood Large H (Negative) Urine RBC >182 H (0-5) /hpf Urine WBC 7 H (0-5) /hpf Urine Bacteria Occasional H (None) /hpf Urine Mucus Occasional H (None) /hpf 09/17/24 Range/Units 11:44 WBC (4.50-10.00) 10*3/uL Immature Gran # (0.00-0.04) 10*3/uL Neutrophils # (1.80-7.70) 10*3/uL Monocytes # (0.20-1.00) 10*3/uL BUN (9-20) mg/dL Creatinine (0.66-1.25) mg/dL Glucose (74-99) mg/dL Plasma Lactic Acid Momo 2.8 H* (0.7-2.0) mmol/L Total Protein (6.3-8.2) g/dL Urine Protein (Negative) Urine Glucose (UA) (Negative) Urine Blood (Negative) Urine RBC (0-5) /hpf Urine WBC (0-5) /hpf Urine Bacteria (None) /hpf Urine Mucus (None) /hpf Thrombosis Risk Factor Assmnt - DVT/VTE Prophylaxis DVT/VTE Prophylaxis: Pharmacologic Prophylaxis ordered - Choose All That Apply Any of the Below Risk Factors Present?: Yes Each Risk Factor Represents 2 Points: Age 61-74 years Thrombosis Risk Factor Assessment Total Risk Factor Score: 2 Thrombosis Risk Factor Assessment Level: Low Risk Assessment and Plan Assessment: Hypotension likely due to antihypertensive and narcotic pain medication. Improving now. Lactic acidosis 2.8 on admission likely due to decreased tissue perfusion Acute kidney injury likely prerenal Asthma/COPD. Prednisone dependent. Patient is on Xolair injections Diabetes type 2 insulin-dependent. Paroxysmal atrial fibrillation on anticoagulation with Eliquis Hypertension Hyperlipidemia Osteoarthritis History of renal stones and prior to urological procedure Parkinson's disease Prior history of smoking DVT prophylaxis patient is already on Eliquis. Plan: Patient will be continued on telemonitoring. Was given 2 L fluid bolus in the ER and continue with normal saline at 75 cc/h. Diovan and metoprolol will be on hold. Heart rate is also in's 50s. Continue with insulin regimen and other home medications and follow-up closely. Patient is currently asymptomatic. Time with Patient: Greater than 30
[2024-09-17] MEDS: TAMSULOSIN 0.4 MG CAP.ER.24H PO SCH (21:20)
[2024-09-17] MEDS: predniSONE 5 MG TAB PO SCH (21:20)
[2024-09-17] MEDS: APIXABAN 5 MG TAB PO SCH (21:20)
[2024-09-17] MEDS: MONTELUKAST 10 MG TAB PO SCH (21:20)
[2024-09-17] MEDS: LEVODOPA PO SCH (21:36)
[2024-09-17] MEDS: ENTACAPONE PO SCH (21:36)
[2024-09-17] MEDS: CARBIDOPA PO SCH (21:36)
[2024-09-18] MEDS: IPRATROPIUM-ALBUTEROL 3 ML NEB INHALATION PRN (02:12)
[2024-09-18 06:56] LABS: Glucose,Whole Blood 79 mg/dL (70-110)
[2024-09-18 07:34] VITALS: RESP 20
[2024-09-18] MEDS: SYMBICORT 160-4.5 MCG INHALER INHALATION SCH (07:41)
[2024-09-18 08:17] LABS: Basophils # (A) 0.04 X 10*3/uL (0.00-0.10); Basophils % (A) 0.3 %; Eosinophils # (A) 0.18 X 10*3/uL (0.04-0.35); Eosinophils % (A) 1.6 %; HCT 38.5 % (39.6-50.0); Lymphocytes # (A) 1.37 X 10*3/uL (0.90-5.00); Lymphocytes % (A) 11.9 %; MCH 29.5 pg (27.0-32.0); MCHC 31.2 g/dL (32.0-37.0); MCV 94.6 FL (80.0-97.0); Mean Platelet Volume 11.7 FL (9.5-12.2); Monocytes # (A) 0.87 X 10*3/uL (0.20-1.00); Monocytes % (A) 7.5 %; NRBC Per 100 WBC 0 X 10*3/uL (0.00-0.01); Neutrophils # (A) 9.01 X 10*3/uL (1.80-7.70); Neutrophils % (A) 78.2 %; Platelet Count 207 X 10*3/uL (140-440); RBC 4.07 X 10*6/uL (4.40-5.60); RDW 14.1 % (11.5-14.5); WBC 11.53 X 10*3/uL (4.50-10.00)
[2024-09-18 08:26] LABS: BUN/Creat Ratio 15.55 Ratio (12.00-20.00); Blood Urea Nitrogen 17.1 mg/dL (9.0-27.0); Calcium 8.3 mg/dL (8.7-10.3); Carbon Dioxide 18.8 mmol/L (21.6-31.8); Chloride 112 mmol/L (96-109); Glucose 84 mg/dL (70-110); Potassium 3.8 mmol/L (3.5-5.5); Sodium 141 mmol/L (135-145)
[2024-09-18] MEDS: THEOPHYLLINE 24 HOUR 400 MG CAP.ER.24H PO SCH (08:53)
[2024-09-18] MEDS: CHOLECALCIFEROL 25 MCG (1000 IU) TABLET PO SCH (08:53)
[2024-09-18] MEDS: CALCIUM CARBONATE 500 MG CHEWABLE PO SCH (08:54)
[2024-09-18] MEDS: ATORVASTATIN 40 MG TAB PO SCH (08:54)
[2024-09-18] MEDS: predniSONE 10 MG TAB PO SCH (08:55)
[2024-09-18] MEDS: DAPAGLIFLOZIN PROPANEDIOL 10 MG TABLET PO SCH (08:55)
[2024-09-18] MEDS: oxyCODONE-APAP 5-325MG 1 EACH TAB PO PRN (09:06)
[2024-09-18] MEDS: TOPIRAMATE 25 MG TAB PO SCH (11:46)
[2024-09-18] MEDS: STALEVO PO SCH (11:47)
[2024-09-18] MEDS: METOPROLOL SUCCINATE (ER) 50 MG TAB.ER.24H PO SCH (11:47)
[2024-09-18 12:12] LABS: Glucose,Whole Blood 90 mg/dL (70-110)
[2024-09-18 13:01] VITALS: TEMP 98.1
[2024-09-18 13:45] VITALS: BMI 35.9
[2024-09-18 16:53] VITALS: BP 144/58; PULSE 76
[2024-09-22] MEDS ORDERED: predniSONE 5 MG TAB PO SCH (09:00)
== END 2024-09-18 18:10 | disposition home or self-care (01) | DRG 312 ==
LOC: EC 11:11 → 3SCARD 14:11 → 5NMEDONC 16:45
PROVIDERS: ADMIT Internal Medicine; ATTEND Internal Medicine
DX: I95.2 Hypotension due to drugs (principal); E87.20 Acidosis, unspecified; G20.A1 Parkinson's disease without dyskinesia, without mention of fluctuations; N17.9 Acute kidney failure, unspecified; E11.9 Type 2 diabetes mellitus without complications; E86.0 Dehydration; I48.0 Paroxysmal atrial fibrillation; J44.89 Other specified chronic obstructive pulmonary disease; I10 Essential (primary) hypertension; E78.5 Hyperlipidemia, unspecified; M19.90 Unspecified osteoarthritis, unspecified site; T46.5X5A Adverse effect of other antihypertensive drugs, initial encounter; G89.29 Other chronic pain; T40.605A Adverse effect of unspecified narcotics, initial encounter; Z79.4 Long term (current) use of insulin; Z87.891 Personal history of nicotine dependence; Z79.51 Long term (current) use of inhaled steroids; Z79.84 Long term (current) use of oral hypoglycemic drugs; Z79.01 Long term (current) use of anticoagulants; Z79.899 Other long term (current) drug therapy; Z79.52 Long term (current) use of systemic steroids
CPT/HCPCS: 36415; 71046; 80048; 80053; 81001; 83036; 83605; 83735; 84484; 85025; 85610; 85730; 93005; 94640; 96360; 96361; 99285

== ENCOUNTER 2024-11-30 16:49 | Emergency (ER) | payer OTHER ==
[2024-11-30 17:00] VITALS: RESP 18
--- NOTE | 2024-11-30 17:23 | ED ---
Male Urogenital HPI - General Source: patient, family, EMS, RN notes reviewed Mode of arrival: ambulatory Limitations: no limitations <Cassandra Mccullough - Last Filed: 11/30/24 17:22> - General Source: patient, family, EMS, RN notes reviewed, old records reviewed Mode of arrival: ambulatory Limitations: no limitations - History of Present Illness MD Complaint: other (Scrotal laceration) -: days(s) Location: left testicle Radiation: none Severity: mild Severity scale (1-10): 1 Improves with: none Worsens with: none Reports: denies other symptoms <Umesh Estrada - Last Filed: 11/30/24 20:48> - General Chief complaint: Urogenital Stated complaint: Cut Time Seen by Provider: 11/30/24 17:22 - History of Present Illness Initial comments: Quick note: 63 female presented the ER for evaluation of a scrotal injury. Patient states last night he was attempting to take a shower sitting on a fiberglass seat. He states his seat cracked causing his scrotum to be caught between the crack. He reports bleeding laceration since then. Tetanus up-to-date. Denies blood thinner use. (Cassandra Mccullough) This is a 63-year-old male with a cut on his scrotum occurred while going to the bathroom yesterday concern for persistent bleeding (Umesh Estrada) - Related Data Home Medications Medication Instructions Recorded Confirmed Albuterol Sulfate [Ventolin HFA] 2 puff INHALATION RT-Q4H PRN 08/13/19 11/30/24 Montelukast [Singulair] 10 mg PO HS 08/13/19 11/30/24 Tamsulosin [Flomax] 0.4 mg PO HS 08/13/19 11/30/24 Rosuvastatin [Crestor] 20 mg PO DAILY 01/16/21 11/30/24 Topiramate [Topamax] 50 mg PO BID 01/16/21 11/30/24 Apixaban [Eliquis] 5 mg PO BID 11/02/21 11/30/24 Albuterol Nebulized [Ventolin 2.5 mg INHALATION RT-Q4H PRN 11/16/23 11/30/24 Nebulized] Empagliflozin [Jardiance] 25 mg PO DAILY 11/16/23 11/30/24 Fluticasone/Vilanterol [Breo 1 puff INHALATION RT-DAILY 11/16/23 11/30/24 Ellipta 200-25 Mcg Inhaler] Ipratropium Nebulized [Atrovent 0.5 mg INHALATION RT-Q4H PRN 11/16/23 11/30/24 Nebulized 0.2 MG/ML] Omalizumab [Xolair] 1 dose SQ Q14D 11/16/23 11/30/24 Theophylline 24 Hour [Raghavendra-24] 400 mg PO DAILY 11/16/23 11/30/24 Calcium Carbonate [Calcium] 600 mg PO DAILY 04/06/24 11/30/24 Metoprolol Succinate [Toprol XL] 25 mg PO DAILY 04/06/24 11/30/24 Valsartan [Diovan] 80 mg PO HS 04/06/24 11/30/24 Carbidopa/Levodopa/Entacapone 2 tab PO TID 09/17/24 11/30/24 [Stalevo 200] Cholecalciferol (Vitamin D3) 50 mcg PO DAILY 09/17/24 11/30/24 [Vitamin D3 (50 Mcg = 2000 Iu)] Gabapentin [Neurontin] 400 mg PO BID 09/17/24 11/30/24 Insulin Degludec [Tresiba 10 units SQ HS 09/17/24 11/30/24 Flextouch U-200 Pen] Ketoconazole 2% Cream [Nizoral 2%] 1 applic TOPICAL DAILY PRN 09/17/24 11/30/24 Lactulose [Cephulac] 20 gm PO BID PRN 09/17/24 11/30/24 Nystatin 100,000 Unit/gm Powd 1 applic TOPICAL BID PRN 09/17/24 11/30/24 [Mycostatin Powder] oxyCODONE-APAP 5-325MG [Percocet 1 tab PO BID PRN 09/17/24 11/30/24 5-325 mg] predniSONE 5 mg PO SUMOWEFRSA 09/17/24 11/30/24 predniSONE 10 mg PO TUTH 09/17/24 11/30/24 Previous Rx's Medication Instructions Recorded Lidocaine 5% Patch [Lidoderm 5% 1 patch TRANSDERM DAILY PRN #0 11/20/23 Patch] Allergies Allergy/AdvReac Type Severity Reaction Status Date / Time Penicillins Allergy Rash/Hives Verified 11/30/24 10:27 Review of Systems ROS Other: All systems not noted in ROS Statement are negative. <Cassandra Mccullough - Last Filed: 11/30/24 17:22> ROS Other: All systems not noted in ROS Statement are negative. <Umesh Estrada - Last Filed: 11/30/24 20:48> ROS Statement: Those systems with pertinent positive or pertinent negative responses have been documented in the HPI. Past Medical History Past Medical History: Atrial Fibrillation, Asthma, COPD, Diabetes Mellitus, Hyperlipidemia, Hypertension, Osteoarthritis (OA), Prostate Disorder Additional Past Medical History / Comment(s): environmental allergies, back pain, frequent urination., states aortic valve enlarged. P[facility]INSON[facility]S. LO from dehydration in 11/21/23- numbers improved. bph. RLS. recent abnormal stress test per pt's . recently rescheduled for heart cath due to productive cough, seen and treated by Dr Alvarez. DDD, restless leg syndrome History of Any Multi-Drug Resistant Organisms: None Reported Past Surgical History: Heart Catheterization, Tonsillectomy Additional Past Surgical History / Comment(s): Deviated Septum, Sharon Fundiplication, nerve ablation on back. , colonoscopy, BILAT CATARACTS REMOVED WITH LENS IMPLANTS, CYSTOSCOPY Past Anesthesia/Blood Transfusion Reactions: Previous Problems w/ Anesthesia Additional Past Anesthesia/Blood Transfusion Reaction / Comment(s): difficult time "coming out" of anesthesia-states he was told due to asthma Past Psychological History: No Psychological Hx Reported Smoking Status: Former smoker - Past Family History Father Family Medical History: Myocardial Infarction (PR) Mother Family Medical History: Cancer Additional Family Medical History / Comment(s): unsure <Cassandra Mccullough - Last Filed: 11/30/24 17:22> General Exam Limitations: no limitations <Cassandra Mccullough - Last Filed: 11/30/24 17:22> General appearance: alert, in no apparent distress Head exam: Present: atraumatic, normocephalic, normal inspection Eye exam: Present: normal appearance, PERRL, EOMI. Absent: scleral icterus, conjunctival injection, periorbital swelling ENT exam: Present: normal exam, mucous membranes moist Neck exam: Present: normal inspection. Absent: tenderness, meningismus, lymphadenopathy Respiratory exam: Present: normal lung sounds bilaterally. Absent: respiratory distress, wheezes, rales, rhonchi, stridor Cardiovascular Exam: Present: regular rate, normal rhythm, normal heart sounds. Absent: systolic murmur, diastolic murmur, rubs, gallop, clicks GI/Abdominal exam: Present: soft, normal bowel sounds. Absent: distended, tenderness, guarding, rebound, rigid Extremities exam: Present: normal inspection, full ROM, normal capillary refill. Absent: tenderness, pedal edema, joint swelling, calf tenderness Back exam: Present: normal inspection Neurological exam: Present: alert, oriented X3, CN II-XII intact Psychiatric exam: Present: normal affect, normal mood Skin exam: Present: warm, dry, intact, normal color. Absent: rash <Umesh Estrada - Last Filed: 11/30/24 20:48> - General Exam Comments Initial Comments: Visual Physical Exam Vital signs reviewed General: Well-appearing, nontoxic, no acute distress. Head: Normocephalic, atraumatic Eyes: PERRLA, EOMI ENT: Airway patent Chest: Nonlabored breathing Skin: No visual rash, normal skin tone Neuro: Alert and oriented 3 Musculoskeletal: No gross abnormalities (Cassandra Mccullough) Course <Umesh Estrada - Last Filed: 11/30/24 20:48> Vital Signs 11/30/24 11/30/24 16:55 18:55 Temperature 97.8 F 98.0 F Pulse Rate 98 95 Respiratory 18 18 Rate Blood Pressure 112/68 118/66 O2 Sat by Pulse 95 99 Oximetry - Reevaluation(s) Reevaluation #1: 11/30/24 20:47 Medical records reviewed (Umesh Estrada) Reevaluation #2: 11/30/24 20:47 No acute bleeding noted here in the ER (Umesh Estrada) Reevaluation #3: 11/30/24 20:47 Patient informed of results questions answered (Umesh Estrada) Reevaluation #4: Was pt. sent in by a medical professional or institution (, PA, CABIN FURNISHINGS INSTALLER, urgent care, hospital, or retirement...) When possible be specific @ -no Did you speak to anyone other than the patient for history (EMS, parent, family, police, friend...)? What history was obtained from this source @ -no Did you review nursing and triage notes (agree or disagree)? Why? @ -agree Are old charts reviewed (outside hosp., previous admission, EMS record, old EKG, old radiological studies, urgent care reports/EKG's, retirement records)? Report findings @ -yes Differential Diagnosis (chest pain, altered mental status, abdominal pain women, abdominal pain men, vaginal bleeding, weakness, fever, dyspnea, syncope, headache, dizziness, GI bleed, back pain, seizure, CVA, palpatations, mental health, musculoskeletal)? @ -prior EKG interpreted by me (3pts min.). @ -yes X-rays interpreted by me (1pt min.). @ -yes negative for acute disease CT interpreted by me (1pt min.). @ -no U/S interpreted by me (1pt. min.). @ -no What testing was considered but not performed or refused? (CT, X-rays, U/S, labs)? Why? @ -none What meds were considered but not given or refused? Why? @ -none Did you discuss the management of the patient with other professionals (professionals i.e. , PA, CABIN FURNISHINGS INSTALLER, lab, RT, psych nurse, hospice social worker, cigarette machine operator, teacher, production officer, bilingual patient support caseworker)? Give summary @ -no Was smoking cessation discussed for >3mins.? @ -no Was critical care preformed (if so, how long)? @ -no Were there social determinants of health that impacted care today? How? (Homelessness, low income, unemployed, alcoholism, drug addiction, transportation, low edu. Level, literacy, decrease access to med. care, retirement, rehab)? @ -none Was there de-escalation of care discussed even if they declined (Discuss DNR or withdrawal of care, Hospice)? DNR status @ -no What co-morbidities impacted this encounter? (DM, HTN, Smoking, COPD, CAD, Cancer, CVA, ARF, Chemo, Hep., AIDS, mental health diagnosis, sleep apnea, morbid obesity)? @ -none Was patient admitted / discharged? Hospital course, mention meds given and route, prescriptions, significant lab abnormalities, going to OR and other pertinent info. @ - Undiagnosed new problem with uncertain prognosis? @ -no Drug Therapy requiring intensive monitoring for toxicity (Heparin, Nitro, Insulin, Cardizem)? @ -no Were any procedures done? @ -no Diagnosis/symptom? @ - Acute, or Chronic, or Acute on Chronic? @ -Acute Uncomplicated (without systemic symptoms) or Complicated (systemic symptoms)? @ -Complicated Side effects of treatment? @ -no Exacerbation, Progression, or Severe Exacerbation? @ -exacerbation Poses a threat to life or bodily function? How? (Chest pain, USA, PR, pneumonia, PE, COPD, DKA, ARF, appy, cholecystitis, CVA, Diverticulitis, Homicidal, Suicidal, threat to staff... and all critical care pts) @ -yes (Umesh Estrada) Medical Decision Making <Cassandra Mccullough - Last Filed: 11/30/24 17:22> <Umesh Estrada - Last Filed: 11/30/24 20:48> - Medical Decision Making I performed the quick note portion of this chart. Electronically signed by Cassandra Mccullough PA-C (Cassandra Mccullough) 63 male to ER for evaluation of laceration to the scrotum. No significant bleeding noted at this time laceration is greater than 24 hours will not be repaired and patient can be discharged home (Umesh Estrada) Disposition <Cassandra Mccullough - Last Filed: 11/30/24 17:22> Is patient prescribed a controlled substance at d/c from ED?: No Time of Disposition: 18:40 <Umesh Estrada - Last Filed: 11/30/24 20:48> Clinical Impression: Abrasion of scrotum, Scrotal laceration Disposition: HOME SELF-CARE Condition: Good Instructions (If sedation given, give patient instructions): Laceration (ED) Referrals: Patrick Gutierrez DO [Primary Care Provider] - 1-2 days
[2024-11-30 18:56] VITALS: BP 118/66; PULSE 95; TEMP 98
== END 2024-11-30 19:17 | disposition home or self-care (01) ==
LOC: EC 16:49
DX: S31.31XA Laceration without foreign body of scrotum and testes, initial encounter (principal); Z87.891 Personal history of nicotine dependence; Z88.0 Allergy status to penicillin; W23.0XXA Caught, crushed, jammed, or pinched between moving objects, initial encounter
CPT/HCPCS: 99282

== ENCOUNTER 2024-12-01 06:53 | Day surgery (SDC) | payer MEDICARE, OTHER ==
[2024-11-30 10:33] VITALS: BMI 33.1
[~2024-12-01 06:53] MED LIST changes: -ALPRAZolam 0.25 MG TAB PO PRN; -ALPRAZolam 0.5 MG TAB PO PRN; -ASPIRIN 325 MG TAB PO STA; -ATORVASTATIN 80 MG TAB PO STA; +LIDOCAINE 1% (10MG/ML) FOR IV START INTRADERMA PRN; -NITROGLYCERIN SL TABS 0.4 MG TAB SUBLINGUAL PRN
[2024-12-01] MEDS ORDERED: ONDANSETRON 4 MG/2 ML VIAL IVP PRN (07:00)
[2024-12-01 07:30] VITALS: TEMP 97.2
[2024-12-01] MEDS: LACTATED RINGERS 1,000 ML IV SCH (07:40)
[2024-12-01 07:41] LABS: Glucose,Whole Blood 84 mg/dL (70-110)
[2024-12-01] MEDS: HYDROCORTISONE SUCCINATE 100 MG/2 ML VIAL IV STA (07:44)
[2024-12-01] MEDS: IV FLUID CONTINUATION 1,000 ML IV ONE (07:55)
[2024-12-01] MEDS ORDERED: PROPOFOL 10 MG/ML 20 ML VIAL IV ONE (08:32)
--- NOTE | 2024-12-01 08:42 | P.PCN ---
Date of Procedure: 12/01/24 Procedure(s) Performed: BRIEF HISTORY: Patient is a 63-year-old, pleasant, white man scheduled for an upper endoscopy for evaluation of progressive dysphagia to solids for the last 2 months duration. Last approximately 30 pounds since onset of the symptoms. PROCEDURE PERFORMED: Esophagogastroduodenoscopy with biopsy and dilation. PREOPERATIVE DIAGNOSIS: Progressive dysphagia to solids and weight loss of 30 pounds for the last 2 months duration. IV sedation per anesthesia. PROCEDURE: After informed consent was obtained, the patient was brought into the endoscopy unit. IV sedation was administered by Anesthesia under continuous monitoring. Initially the Olympus GIF-140 video endoscope was inserted into the mouth. Esophagus intubated without any difficulty. It was gradually advanced into the stomach and duodenum and carefully examined. The bulb and the second part of the duodenum appeared normal biopsies were done from the duodenum rule out celiac disease.. The scope at this time was withdrawn to the stomach, adequately insufflated with air, and upon careful examination, mucosa of the antrum, body, had diffuse gastritis and biopsies were done from this area. Mucosa of the cardia and the fundus appeared normal. The scope was then withdrawn into the esophagus. The GE junction was located at 44 cm from the incisors. The GE junction appeared tight with a possible early stricture status post balloon dilation using 20 mm TTS balloon for 30 seconds. There was some oozing identified post dilation. The rest of the esophagus appeared normal. There were no erosions or ulcerations seen, biopsies were done from the distal esophagus and the patient tolerated the procedure well. IMPRESSION: 1. Tight lower esophageal sphincter with questionable stricture status post balloon dilation using 20 mm TTS balloon. 2. Diffuse gastritis involving the gastric body and antrum status post multiple biopsies. RECOMMENDATIONS: The findings of this examination were discussed with the patient as well as his family. He was advised to follow-up with the biopsy results. Clear liquids for 2 hours. Follow-up in the office in 3 to 4 weeks..
[2024-12-01 09:12] VITALS: RESP 18
[2024-12-01 09:12] LABS: Glucose,Whole Blood 87 mg/dL (70-110)
[2024-12-01 09:14] VITALS: BP 115/61; PULSE 65
== END 2024-12-01 09:38 | disposition home or self-care (01) ==
LOC: ORWHC2ENDO 06:53
PROVIDERS: ATTEND Internal Medicine Gastroenterology
DX: K29.50 Unspecified chronic gastritis without bleeding (principal); I10 Essential (primary) hypertension; E78.5 Hyperlipidemia, unspecified; I25.10 Atherosclerotic heart disease of native coronary artery without angina pectoris; I48.91 Unspecified atrial fibrillation; J45.909 Unspecified asthma, uncomplicated; E11.9 Type 2 diabetes mellitus without complications; M19.90 Unspecified osteoarthritis, unspecified site; G20.A1 Parkinson's disease without dyskinesia, without mention of fluctuations; Z79.01 Long term (current) use of anticoagulants; Z79.52 Long term (current) use of systemic steroids; Z79.899 Other long term (current) drug therapy; Z88.0 Allergy status to penicillin
CPT/HCPCS: 88305; 88342; 43239; 43249; J1720; J2704; C1726